=== PATIENT | male | born 1955 | race Caucasian/White ===

== ENCOUNTER 2020-11-03 09:00 | Outpatient (REF) | payer MEDICARE, MEDICAID, SELFPAY ==
[2020-11-03 10:17] LABS: Anion Gap 12 (12-20); Blood Urea Nitrogen 18 mg/dL (9-16); Calcium 9.6 mg/dL (8.4-10.2); Carbon Dioxide 26 mmol/L (22-29); Chloride 107 mmol/L (96-108); Estimated Glomerular Filt Rate 58; Glucose Random 102 mg/dL (60-115); Sodium 140 mmol/L (135-145)
== END 2020-11-03 09:01 | disposition home or self-care (01) ==
LOC: HO.LAB 09:00
PROVIDERS: Visit Provider Internal Medicine Hypertension Specialist
DX: I12.9 Hypertensive chronic kidney disease with stage 1 through stage 4 chronic kidney disease, or unspecified chronic kidney disease (principal); N18.9 Chronic kidney disease, unspecified
CPT/HCPCS: 36415; 80048

== ENCOUNTER 2020-11-22 07:52 | Outpatient (REF) | payer MEDICARE, MEDICAID, SELFPAY | END 2020-11-22 07:53 | disposition home or self-care (01) | LOC: HO.HOSX 07:52 | PROVIDERS: Visit Provider Orthopaedic Surgery | DX: Z13.89 Encounter for screening for other disorder (principal) ==

== ENCOUNTER 2021-05-01 09:34 | Outpatient (REF) | payer MEDICARE, MEDICAID, SELFPAY ==
[2021-05-01 10:58] LABS: Anion Gap 12 (12-20); Blood Urea Nitrogen 16 mg/dL (9-16); Calcium 10.1 mg/dL (8.4-10.2); Carbon Dioxide 25 mmol/L (22-29); Chloride 109 mmol/L (96-108); Estimated Glomerular Filt Rate > 60; Potassium 4.9 mmol/L (3.3-5.1); Sodium 141 mmol/L (135-145)
== END 2021-05-01 09:35 | disposition home or self-care (01) ==
LOC: HO.LAB 09:34
PROVIDERS: Visit Provider Internal Medicine Hypertension Specialist
DX: I12.9 Hypertensive chronic kidney disease with stage 1 through stage 4 chronic kidney disease, or unspecified chronic kidney disease (principal); N18.9 Chronic kidney disease, unspecified
CPT/HCPCS: 36415; 80051; 82310; 82565; 84520

== ENCOUNTER 2021-09-12 09:13 | Outpatient (REF) | payer MEDICARE, MEDICAID, SELFPAY ==
[2021-09-12 11:13] LABS: Anion Gap 14 (12-20); Blood Urea Nitrogen 13 mg/dL (9-16); Calcium 9.9 mg/dL (8.4-10.2); Carbon Dioxide 23 mmol/L (22-29); Chloride 108 mmol/L (96-108); Estimated Glomerular Filt Rate 50; Glucose Random 162 mg/dL (60-115); Potassium 4.7 mmol/L (3.3-5.1); Sodium 140 mmol/L (135-145)
[2021-09-12 12:12] LABS: Creatinine Urine 28.21 mg/dL; Total Protein Urine Random < 7 mg/dL (<12)
== END 2021-09-12 09:14 | disposition home or self-care (01) ==
LOC: HO.LAB 09:13
PROVIDERS: PCP Registered Nurse Community Health; Visit Provider Internal Medicine Hypertension Specialist
DX: I10 Essential (primary) hypertension (principal)
CPT/HCPCS: 36415; 80048; 84156

== ENCOUNTER → 2022-02-27 13:12 | Outpatient (BNVA) | payer MEDICARE, SELFPAY | PROVIDERS: PCP Registered Nurse Community Health; Referring Provider Registered Nurse Community Health; Visit Provider Surgery | DX: Z86.010 Personal history of colon polyps (principal) | CPT/HCPCS: 99202 ==

== ENCOUNTER 2022-03-25 10:02 | Outpatient (REF) | payer OTHER, SELFPAY ==
[2022-03-25 11:01] LABS: Anion Gap 15 (12-20); Blood Urea Nitrogen 12 mg/dL (9-16); Calcium 10.3 mg/dL (8.4-10.2); Carbon Dioxide 26 mmol/L (22-29); Chloride 108 mmol/L (96-108); Estimated Glomerular Filt Rate > 60; Glucose Random 130 mg/dL (60-115); Potassium 5.2 mmol/L (3.3-5.1); Sodium 144 mmol/L (135-145)
[2022-03-25 11:31] LABS: Appearance Urine Clear; Color Urine Yellow; Glucose Urine UA Negative (Negative); Leukocyte Esterase Urine Negative (Negative); Nitrite Urine Negative (Negative); Specific Gravity - Urine <= 1.005 (1.005-1.025); Urine Blood Negative (Negative); Urine Ketones Negative (Negative); Urine Protein Negative (Neg-Trace)
== END 2022-03-25 10:03 | disposition home or self-care (01) ==
LOC: HO.LAB 10:02
PROVIDERS: Visit Provider Internal Medicine Hypertension Specialist
DX: I12.9 Hypertensive chronic kidney disease with stage 1 through stage 4 chronic kidney disease, or unspecified chronic kidney disease (principal)
CPT/HCPCS: 36415; 80048; 81003

== ENCOUNTER 2022-04-05 06:50 | Day surgery (SDC) | payer OTHER, SELFPAY ==
--- NOTE | 2022-04-04 09:00 | HO.ANESPROP2 ---
Documented by User: Kasia Wen NP 04/17/22 14:33 HPI - Anesthesia Eval Consult details Narrative: 67yo M for Colonoscopy with possible polypectomy PMFSH Active Problems Active Problems: All Active Problems (Updated 02/27/22 @ 13:23 by Yasir Bowling MD) History of adenomatous polyp of colon (Acute) Hypertension (Acute) Past Medical History Medical History (Updated 04/05/22 @ 07:51 by Leilani Saldaña, RN) Asthma Colon abnormality High cholesterol History of adenomatous polyp of colon Hypertension Hypothyroid Kidney disease Surgical History Surgical History (Updated 04/05/22 @ 07:50 by Leilani Saldaña, JAYJAY) H/O: hemorrhoidectomy Status post total hip replacement, bilateral Social History Social History Patient Tobacco Use Status: Never used Tobacco Meds Allergies Allergy/AdvReac Type Severity Reaction Status Date / Time dicloxacillin Allergy Unknown Unknown Verified 04/18/22 09:54 ibuprofen [From MOTRIN] Allergy Unknown GI Verified 04/18/22 09:54 PROBLEM, GI upset penicillin V Allergy Unknown Unknown Verified 04/18/22 09:54 Penicillins [PENICILLINS] Allergy Unknown UNKNOWN Verified 04/18/22 09:54 Home Medications Medication Instructions Recorded Confirmed Last Taken Type cholecalciferol (vitamin D3) 50 50 mcg PO DAILY 02/27/22 Unknown History mcg (2,000 unit) capsule (Vitamin D3) levothyroxine 125 mcg tablet 125 mcg PO DAILY 02/27/22 Unknown History loratadine 10 mg tablet 10 mg PO DAILY PRN 02/27/22 Unknown History pantoprazole 40 mg tablet,delayed 40 mg PO DAILY 02/27/22 Unknown History release rosuvastatin 10 mg tablet 10 mg PO BEDTIME 02/27/22 Unknown History sildenafil 100 mg tablet (Viagra) 50 - 100 mg PO DAILY PRN 02/27/22 Unknown History tramadol 50 mg tablet 50 mg PO PRN pain 02/27/22 Unknown History Exam Exam Date and Time: April 04, 2022 0900 Pertinent Lab Results Pertinent Lab Results: Laboratory Tests 07/26/19 03/25/22 14:20 10:17 WBC 10.4 Hgb 14.6 Hct 43.9 Plt Count 202 Sodium 144 Potassium 5.2 H Chloride 108 Carbon Dioxide 26 BUN 12 Creatinine 1.18 Assessment and Plan Assessment Anesthesia Assessment: Chart Reviewed Documented by User: Binu Malloy MD 04/22/22 19:23 PMF Past Medical History Medical History (Updated 04/05/22 @ 07:51 by Leilani Saldaña RN) Asthma Colon abnormality High cholesterol History of adenomatous polyp of colon Hypertension Hypothyroid Kidney disease Family History Family history of problems with anesthesia: No Surgical History Surgical History (Updated 04/05/22 @ 07:50 by Leilani Saldaña RN) H/O: hemorrhoidectomy Status post total hip replacement, bilateral History of Problems with Anesthesia: No Social History Social History Patient Tobacco Use Status: Never used Tobacco Meds Allergies Allergy/AdvReac Type Severity Reaction Status Date / Time dicloxacillin Allergy Unknown Unknown Verified 04/18/22 09:54 ibuprofen [From MOTRIN] Allergy Unknown GI Verified 04/18/22 09:54 PROBLEM, GI upset penicillin V Allergy Unknown Unknown Verified 04/18/22 09:54 Penicillins [PENICILLINS] Allergy Unknown UNKNOWN Verified 04/18/22 09:54 Home Medications Medication Instructions Recorded Confirmed Last Taken Type cholecalciferol (vitamin D3) 50 50 mcg PO DAILY 02/27/22 Unknown History mcg (2,000 unit) capsule (Vitamin D3) levothyroxine 125 mcg tablet 125 mcg PO DAILY 02/27/22 Unknown History loratadine 10 mg tablet 10 mg PO DAILY PRN 02/27/22 Unknown History pantoprazole 40 mg tablet,delayed 40 mg PO DAILY 02/27/22 Unknown History release rosuvastatin 10 mg tablet 10 mg PO BEDTIME 02/27/22 Unknown History sildenafil 100 mg tablet (Viagra) 50 - 100 mg PO DAILY PRN 02/27/22 Unknown History tramadol 50 mg tablet 50 mg PO PRN pain 02/27/22 Unknown History Exam Airway Mallampati Class: II TM Dist: >3cm Heart: ok Lungs: ok Assessment and Plan Final Anesthetic Review Family History of Problems with Anesthesia: No History of Problems with Anesthesia: No NPO: Yes ASA Class: II Final Preanesthetic Review: No Changes in Pt Med Stat, Meds/Allgs Chart Reviewed, Consent Obtained/Reviewed and Anes Risks/Benef Reviewed Patient Risk: Intermediate Procedure Risk: Low Anesthetic Plan Anesthetic Plan: MAC: Disposition: Standard PACU
[2022-04-05 07:58] VITALS: BMI 31.0
[2022-04-05] MEDS: Lactated Ringers 1,000 ML 100 ML IVCONT (08:03)
--- NOTE | 2022-04-05 08:03 | P.HPSUR_ITS ---
Pre-Procedural Eval Section A Date of Service: 04/05/22 Section B Chief Complaint: Personal history of colonic polyps Details of Present Illness: history of a tubular adenoma at level 35 cm last 2019 Relevant Family History (Specify if Yes): No Relevant Social History: None Present Medications: see Short Stay Collaborative assessment Medical History: Significant History ( hypertension) Allergies: Allergies Allergy/AdvReac Type Severity Reaction Status Date / Time dicloxacillin Allergy Unknown Unknown Verified 02/27/22 13:23 ibuprofen [From MOTRIN] Allergy Unknown GI Verified 04/05/22 07:47 PROBLEM, GI upset penicillin V Allergy Unknown Unknown Verified 02/27/22 13:23 Penicillins [PENICILLINS] Allergy Unknown UNKNOWN Verified 04/05/22 07:47 Review of Systems Sugical H&P ROS: Negative: Constitution, Cardiovascular, Respiratory, Neur ological, Psychiatric, Hem-Onc, Allergic/Immunologic, Gastrointestinal, Genitourinary, Musculoskeletal, Integumentary, Endocrine and Eyes/Ears/Nose/Throat Exam Surgical H&P Exam: Normal: HEENT, Normal: Heart, Normal: Lungs, Normal: Extremities, Normal: Abdomen, Normal: Skin and Normal: Neurological Plan Diagnosis/Plan: Unchanged I have reviewed the history and physical and performed a pertinent physical examination on my patient. No changes have occurred unless specified.
[2022-04-05 08:11] VITALS: BP 167/83; PULSE 59; RESP 16; TEMP 36.1; O2SAT 98
--- NOTE | 2022-04-05 09:01 | W.PM.OPN ---
Operative Note Operative Note Date of Service: 04/05/22 Narrative: Preop diagnosis: History of tubular adenoma Postop diagnosis: 1. Polyp about 4 mm, hepatic flexure 2. polyp, about 4 mm, right colon 3. polyps x2 at level 50 cm, , 1 polyp about 4 mm in size and 2nd polyp about 1 cm in size Procedure: Colonoscopy with polypectomy times 4 using hot snare Surgeon: Yasir Bowling MD The patient is a 67-year-old male with a tubular adenoma in 2019. I had recommended follow-up colonoscopy in view of the large size of the adenoma. He understood the technique of the procedure. He was aware of the risks, benefits, and alternatives. The patient was brought to the operating room and placed in left lateral decubitus position under monitored anesthesia care. A surgical time-out was done. A full digital rectal exam was done and this did not reveal any significant anal lesions. The tip of the Olympus colonoscope was gently introduced through the anal orifice advanced with insufflation all the way to the cecum. The cecum was intubated. The cecum was identified by visualization of the ileocecal valve as well as the appendiceal orifice. The cecal mucosa was unremarkable. The scope was gradually withdrawn with careful examination of the entire colonic mucosa being done with scope withdrawal. The patient had significant amount of bowel stool particles the right colon. In the hepatic flexure, there was note of a small polyp about 4 mm. There was removed using hot snare. Was a 2nd polyp in the mid right colon also removed with hot snare. This was about 4 mm in size. There was a 4 mm polyp at level 50 cm removed not snare. Adjacent to this was a polyp about 1 in size on a small stalk and removed with hot snare. We continued to withdraw the scope and there were no other lesions seen. The rectum was reached and there were no lesions seen. The anal canal was unremarkable. The scope was then withdrawn completely with desufflation The patient tolerated procedure well. There were no immediate complications. In view of the multiple, I would recommend another colonoscopy in the next 3 years depending on the path report.
[2022-04-05 09:06] VITALS: BP 146/77; PULSE 65; RESP 17; TEMP 36.3; O2SAT 97
[2022-04-05 09:21] VITALS: BP 158/92; PULSE 71; RESP 18; O2SAT 99
[2022-04-05 09:36] VITALS: BP 157/81; PULSE 61; RESP 16; TEMP 36.2; O2SAT 99
== END 2022-04-05 09:54 | disposition home or self-care (01) ==
PROVIDERS: Visit Provider Surgery
PROC: 0DJD8ZZ Inspection of Lower Intestinal Tract, Via Natural or Artificial Opening Endoscopic (ICD-10-PCS; CPT 45378; principal; 2022-04-05 08:20)
DX: Z12.11 Encounter for screening for malignant neoplasm of colon (principal); Z86.010 Personal history of colon polyps; D12.2 Benign neoplasm of ascending colon; D12.3 Benign neoplasm of transverse colon; D12.5 Benign neoplasm of sigmoid colon; I10 Essential (primary) hypertension; Z88.0 Allergy status to penicillin; Z88.8 Allergy status to other drugs, medicaments and biological substances; Z79.899 Other long term (current) drug therapy
CPT/HCPCS: 45385; 88305; J3010

== ENCOUNTER → 2022-04-18 09:40 | Outpatient (BNVA) | payer OTHER, SELFPAY | PROVIDERS: Visit Provider Physician Assistant Surgical | DX: Z86.010 Personal history of colon polyps (principal) | CPT/HCPCS: 99212 ==

== ENCOUNTER 2022-06-12 14:10 | Outpatient (REF) | payer OTHER, SELFPAY ==
--- NOTE | ~2022-06-12 | XR_ITS ---
EXAMINATION: BILATERAL HIPS AND AP PELVIS. CLINICAL INFORMATION: Bilateral hip pain. COMPARISON: None TECHNIQUE: AP pelvis and right hip 2 views. Left hip 2 views. FINDINGS: AP pelvis: There is total bilateral hip joint replacement. SI joints are symmetrical and normal. No soft tissue abnormality seen. No fracture noted. Right hip: There is a total right hip arthroplasty with prosthetic components in satisfactory alignment. No periprosthetic fracture. No loosening. Left hip: There is a total left hip arthroplasty with prosthetic components in alignment. There is no periprosthetic loosening or fracture seen. XR/XR hip RT w PEL1V IMPRESSION: Bilateral total hip joint replacement with prosthetic components in satisfactory alignment. No periprosthetic fracture or loosening seen.
--- NOTE | ~2022-06-12 | XR_ITS ---
EXAMINATION: BILATERAL HIPS AND AP PELVIS. CLINICAL INFORMATION: Bilateral hip pain. COMPARISON: None TECHNIQUE: AP pelvis and right hip 2 views. Left hip 2 views. FINDINGS: AP pelvis: There is total bilateral hip joint replacement. SI joints are symmetrical and normal. No soft tissue abnormality seen. No fracture noted. Right hip: There is a total right hip arthroplasty with prosthetic components in satisfactory alignment. No periprosthetic fracture. No loosening. Left hip: There is a total left hip arthroplasty with prosthetic components in alignment. There is no periprosthetic loosening or fracture seen. XR/XR hip LT min 2V IMPRESSION: Bilateral total hip joint replacement with prosthetic components in satisfactory alignment. No periprosthetic fracture or loosening seen.
== END 2022-06-12 14:11 | disposition home or self-care (01) ==
LOC: HO.HOSX 14:10
PROVIDERS: Visit Provider Physician Assistant
DX: T84.84XA Pain due to internal orthopedic prosthetic devices, implants and grafts, initial encounter (principal); M76.899 Other specified enthesopathies of unspecified lower limb, excluding foot; Z96.643 Presence of artificial hip joint, bilateral
CPT/HCPCS: 73502; 99212

== ENCOUNTER 2022-07-02 14:00 | Outpatient (RCR) | payer OTHER, SELFPAY ==
--- NOTE | 2022-06-25 12:26 | MHC.PT.EP ---
[facility] Office [place] Office [place] Office [address] Meghana Madrid [address] [phone] F: [phone] F: [phone] F: [phone] F: [phone] Physical Therapy Plan of Care Date of Evaluation: Date of Surgery: Diagnosis: H/O SURINDER RUIZ, HIP FLEXOR TENDONITIS Assessment: 67 YO MALE REF TO PT FOR BILAT HIP FLEXOR TENDINITIS W H/O BILAT RUIZ IN 1995. HE RESIDES ALONE IN A FIRST FLOOR APARTMENT AND IS CURRENTLY AMB W/O ASST DEVICES. HE HAS A TUNE UP MECHANIC 3 x WK. OBJECTIVE FINDINGS: ROM DEFICITS BILAT HIPS AND TRUNK, TIGHT HIP FLEXORS/ CALF MM, (+) STRENGTH DEFICITS, AND MILD BILAT HIP FLEXOR AND LEFT GLUTE PAIN. FUNCTIONALLY, Pt IS CURRENTLY LIMITED WITH TRANSITIONAL MVMTS, PROLONGED STANDING, ALTERED GAIT MECHANICS, STAIR MGMT , AND RESTRICTED WITH MORE PHYSICALLY DEMANDING ADLs. HE IS MOTIVATED FOR PT TO ASSIST HIM IN BEING ABLE TO DEV A PROGR HEP, ADDRESS PAIN MGMT, AND RESUMING MAXIMAL LEVEL OF FUNCTIONAL INDEPENDENCE. Frequency and Duration: The patient will be seen 2 x WK x 5 WKS Short Term Goals: *Pt WILL DEMON EFFICIENT GAIT MECHANICS ON LEVEL GROUND AND STAIRS *Pt'S HIP PAIN WILL DECR TO 2-3/10 *Pt DEMON APPROP BED MOB/ POSITIONING/ SIT <-> STAND TRANSFERS W REDUCED UEs COMPENSATION Commercial Roofing Estimator Goals: *Pt WILL IMPROVE LUMBOPELVIC/ SURINDER LE STRENGTH TO AT LEAST 5-/5 *Pt INDEP W PROGR HEP AND SELF-SX MGMT TECHN *Pt RESUME FITNESS WALKING Treatment Plan: Modalities to reduce pain, spasms and effusion. Manual therapy to restore motion and function. Therapeutic exercise to improve strength and flexibility. Neuromuscular re-education for posture and balance. Therapeutic activities to return to functional activities of daily living. Electronically signed by: DEEPA MORELANDPT Please sign and return to therapist. Thank you for your referral.
--- NOTE | 2022-07-04 15:35 | MHC.PT.DC ---
[facility] [place] Office [place] Office [place] Office [address] Meghana Madrid [address] [phone] F: [phone] F: [phone] F: [phone] F: [phone] Physical Therapy Discharge Report Diagnosis: H/O SURINDER RUIZ, HIP FLEXOR TENDONITIS Date of Surgery: Date of Evaluation: 06/25/22 Date of Discharge: 07/04/22 Treatments to Date: 3 Cancellations to Date: 0 No Shows to Date: 0 Discharge Status: Improved Function Independent with HEP Patient Elected to Stop Discharge Summary: Pt HAS BENEFITTED FROM PT INTERVENTION TO DEV A PROGRESSIVE HEP, ADDRESS POSTURE / BODY MECHANICS, AND CORE MM ACTIV/ STABILIZATION. HE DID NOT MEET ALL OF HIS PT GOALS, BUT DUE TO HIS SCHEDULE AND PERSONAL CHOICE , Pt REQUESTED D/C AT THIS TIME. Electronically signed by: DEEPA MORELAND,PT Please sign and return to therapist. Thank you for your referral.
== END 2022-07-04 15:32 | disposition home or self-care (01) ==
LOC: HO.PT 14:00
PROVIDERS: Visit Provider Physician Assistant
DX: M76.891 Other specified enthesopathies of right lower limb, excluding foot (principal); M76.892 Other specified enthesopathies of left lower limb, excluding foot; Z96.643 Presence of artificial hip joint, bilateral
CPT/HCPCS: 97110; 97162

== ENCOUNTER 2022-08-12 12:12 | Outpatient (REF) | payer OTHER, SELFPAY | END 2022-08-12 12:13 | disposition home or self-care (01) | LOC: HO.HOSX 12:12 | PROVIDERS: Visit Provider Orthopaedic Surgery | DX: Z13.89 Encounter for screening for other disorder (principal) ==

== ENCOUNTER 2023-02-24 09:41 | Outpatient (REF) | payer OTHER, SELFPAY ==
--- NOTE | ~2023-02-24 | XR_ITS ---
EXAMINATION: XR FINGER, LEFT CLINICAL INFORMATION: Atraumatic pain since, swelling left index finger. Pain at PIP joint COMPARISON: None available. TECHNIQUE: PA view of the left hand and oblique and lateral views of the left index finger. FINDINGS: There is soft tissue swelling of the left index finger, particularly around the PIP joint. No fracture. Alignment is anatomic. Mild degenerative change of the DIP joint of the left index finger. There is also degenerative change of the triscaphe joint. Arterial vascular calcification is seen in the distal wrist. XR/XR finger LT min 2V IMPRESSION: 1. No acute bony abnormality. 2. Degenerative changes.
== END 2023-02-24 09:42 | disposition home or self-care (01) ==
LOC: HO.HHCX 09:41
PROVIDERS: Visit Provider Emergency Medicine
DX: M79.645 Pain in left finger(s) (principal)
CPT/HCPCS: 73140

== ENCOUNTER 2023-02-24 10:05 | Outpatient (REF) | payer OTHER, SELFPAY ==
[2023-02-24 11:39] LABS: MANUAL DIFF FLAG NO
[2023-02-24 12:09] LABS: Basophils Absolute Auto 0.1 X10*3/uL (0.0-0.2); Basophils Percent Auto 0.6 % (0-2); Eosinophils Absolute Auto 0.2 X10*3/uL (0.0-0.4); Eosinophils Percent Auto 1.2 % (0-4); Hematocrit 47.1 % (42.0-52.0); Hemoglobin 15.4 g/dl (14.0-18.0); Imm Gran Abs Auto 0.07 X10*3/uL (0.00-0.03); Imm Gran Pct Auto 0.5 % (0.0-0.4); Lymphocytes Absolute Auto 3.4 X10*3/uL (1.2-4.9); Lymphocytes Percent Auto 22.4 % (20-40); Mean Corpuscular HGB Conc 32.7 g/dl (31.0-36.0); Mean Corpuscular Hemoglobin 32.7 pg (27.0-33.0); Mean Platelet Volume 10.9 fL (9.4-12.4); Monocytes Absolute Auto 1.2 X10*3/uL (0.1-1.2); Monocytes Percent Auto 8.1 % (2-11); Neutrophils Absolute Auto 10.1 x10*3/uL (2.0-8.3); Neutrophils Percent Auto 67.2 % (45-73); Platelet Count 301 X10*3/uL (160-400); Red Blood Count 4.71 X10*6/uL (4.60-5.80); Red Cell Distribution Width 12.2 % (11.0-16.0); White Blood Count 15.1 X10*3/uL (4.8-10.8)
[2023-02-24 12:27] LABS: Uric Acid 6.7 mg/dL (3.4-7.0)
[2023-02-24 13:01] LABS: Erythrocyte Sedimentation Rate 14 MM/HR (0-15)
[2023-02-26 04:58] LABS: Lyme Abs Screen <0.90 index
== END 2023-02-24 10:06 | disposition home or self-care (01) ==
LOC: HO.HHCL 10:05
PROVIDERS: Visit Provider Emergency Medicine
DX: M79.644 Pain in right finger(s) (principal)
CPT/HCPCS: 36415; 84550; 85025; 85652; 86140; 86617; 86618

== ENCOUNTER 2023-05-01 09:21 | Outpatient (REF) | payer OTHER, SELFPAY ==
[2023-05-01 12:40] LABS: TSH reflex Free T4 0.62 uIU/mL (0.32-4.0)
== END 2023-05-01 09:22 | disposition home or self-care (01) ==
LOC: HO.HHCL 09:21
PROVIDERS: Visit Provider Registered Nurse
DX: E03.9 Hypothyroidism, unspecified (principal)
CPT/HCPCS: 36415; 84443

== ENCOUNTER 2023-06-17 11:58 | Outpatient (AMB) | payer OTHER, SELFPAY ==
--- NOTE | 2023-06-17 11:58 | HO.NEPHOV_ITS ---
HPI HPI Comments History of Present Illness Details 67 yr old man with HTN and CKD Here for follow up Continues to drink alcohol regularly No new issues PFSH Medical History Kidney disease High cholesterol Hypothyroid Colon abnormality Asthma History of adenomatous polyp of colon Hypertension Surgical History H/O: hemorrhoidectomy Status post total hip replacement, bilateral Social History Alcohol intake: never Patient Tobacco Use Status: Never used Tobacco Current occupational status: disabled Vital Signs 06/17/23 12:00 Height 5 ft 6.5 in Weight 190 lb BMI 30.2 BP 128/62 Blood Pressure Location Lt brachial Position Sitting Pulse 75 Pulse Source Pulse Oximeter Pulse Oximetry (%) 97 Oxygen Delivery Method Room Air Physical Exam Vital Signs: Last Vital Signs Pulse 75 06/17/23 12:00 BP 128/62 06/17/23 12:00 Pulse Ox 97 06/17/23 12:00 Oxygen Delivery Method Room Air 06/17/23 12:00 BMI result Body Mass Index 30.2 Const General: comfortable Nutritional Appearance: well nourished Orientation/consciousness: patient oriented x3 HEENT Head: No normal to inspection Mouth: moist mucous membranes Neck Neck: Yes supple and Yes no JVD Resp Auscultation: clear to auscultation bilaterally, no rales and rub present Cardio Jugular venous distension: no JVD Palpation: no palpable S3 and no palpable S4 Heart sounds: no rubs GI Palpation (GI): Soft to palpation and nontender Percussion: No Fluid wave present General: Yes no CVA tenderness Back/Spine/Pelvis Back: no CVA tenderness Skin General skin exam: no rashes or lesions noted Neuro General: patient oriented x3 Extrem General: Yes no pedal edema and No clubbing Assessment & Plan Assessment & Plan (1) Hypertension: Code(s): I10 - Essential (primary) hypertension Plan: BP well controlled Stay on low salt diet No change in meds h/o Mild hypercalcemia- ordered PTH and repeat Ca today (2) CKD (chronic kidney disease): Code(s): N18.9 - Chronic kidney disease, unspecified Plan: Mild CKD Avoid nephrotoxins and NSAIDS Keep BP < 130/80 Orders: Orders Creatinine Urine Today I10 - Essential (primary) hypertension, N18.9 - Chronic kidney disease, unspecified Electrolytes Today I10 - Essential (primary) hypertension, N18.9 - Chronic kid wade disease, unspecified Blood Urea Nitrogen Today I10 - Essential (primary) hypertension, N18.9 - Chronic kidney disease, unspecified Creatinine Today I10 - Essential (primary) hypertension, N18.9 - Chronic kidney disease, unspecified Calcium Today I10 - Essential (primary) hypertension, N18.9 - Chronic kidney disease, unspecified Total Protein Urine Random Today I10 - Essential (primary) hypertension, N18.9 - Chronic kidney disease, unspecified UA and rflx microscopic Today I10 - Essential (primary) hypertension, N18.9 - Chronic kidney disease, unspecified Parathyroid Hormone Intact Today I10 - Essential (primary) hypertension, N18.9 - Chronic kidney disease, unspecified Coding Level of Care Code Est Pt Level 4 (76766) Diagnoses Hypertension I10 CKD (chronic kidney disease) N18.9 Results Reviewed Nephrology Results: Hgb 15.4 g/dl (14.0-18.0) 02/24/23 WBC 15.1 X10*3/uL (4.8-10.8) H 02/24/23 Plt Count 301 X10*3/uL (160-400) 02/24/23 Sodium 144 mmol/L (135-145) 03/25/22 Potassium 5.2 mmol/L (3.3-5.1) H 03/25/22 Chloride 108 mmol/L (96-108) 03/25/22 Carbon Dioxide 26 mmol/L (22-29) 03/25/22 BUN 12 mg/dL (9-16) 03/25/22 Creatinine 1.18 mg/dL (0.5-1.4) 03/25/22 Calcium 10.3 mg/dL (8.4-10.2) H 03/25/22 Urine Protein Negative mg/dL (Neg-Trace) 03/25/22
[2023-06-17 12:00] VITALS: BP 128/62; PULSE 75; O2SAT 97; BMI 30.2
== END 2023-06-17 12:13 | disposition home or self-care (01) ==
PROVIDERS: PCP Registered Nurse; Visit Provider Internal Medicine Hypertension Specialist
DX: I12.9 Hypertensive chronic kidney disease with stage 1 through stage 4 chronic kidney disease, or unspecified chronic kidney disease (principal); N18.9 Chronic kidney disease, unspecified
CPT/HCPCS: 99214

== ENCOUNTER → 2023-06-17 11:58 | Outpatient (BNVA) | payer OTHER, SELFPAY | PROVIDERS: PCP Registered Nurse; Visit Provider Internal Medicine Hypertension Specialist | DX: I12.9 Hypertensive chronic kidney disease with stage 1 through stage 4 chronic kidney disease, or unspecified chronic kidney disease (principal); N18.9 Chronic kidney disease, unspecified | CPT/HCPCS: 99212 ==

== ENCOUNTER 2023-06-18 08:47 | Outpatient (REF) | payer OTHER, SELFPAY ==
[2023-06-18 09:51] LABS: Appearance Urine Clear; Color Urine Yellow; Glucose Urine UA Negative (Negative); Leukocyte Esterase Urine Negative (Negative); Nitrite Urine Negative (Negative); Urine Blood Negative (Negative); Urine Ketones Negative (Negative); Urine Protein Negative (Neg-Trace)
[2023-06-18 10:08] LABS: Parathyroid Hormone Intact 125.6 pg/mL (8.7-77.1)
[2023-06-18 10:09] LABS: Anion Gap 12 (12-20); Blood Urea Nitrogen 14 mg/dL (9-16); Calcium 9.4 mg/dL (8.4-10.2); Carbon Dioxide 25 mmol/L (22-29); Chloride 105 mmol/L (96-108); Estimated Glomerular Filt Rate 60; Potassium 4.2 mmol/L (3.3-5.1); Sodium 138 mmol/L (135-145)
[2023-06-18 10:21] LABS: Creatinine Urine 43.18 mg/dL; Total Protein Urine Random < 7 mg/dL (<12)
== END 2023-06-18 08:48 | disposition home or self-care (01) ==
LOC: HO.LAB 08:47
PROVIDERS: PCP Registered Nurse; Visit Provider Internal Medicine Hypertension Specialist
DX: I12.9 Hypertensive chronic kidney disease with stage 1 through stage 4 chronic kidney disease, or unspecified chronic kidney disease (principal); N18.9 Chronic kidney disease, unspecified
CPT/HCPCS: 36415; 80051; 81003; 82310; 82565; 82570; 83970; 84156; 84520

== ENCOUNTER 2023-08-06 11:26 | Outpatient (REF) | payer OTHER, SELFPAY | END 2023-08-06 11:27 | disposition home or self-care (01) | LOC: HO.HHCL 11:26 | PROVIDERS: Visit Provider Registered Nurse | DX: E03.9 Hypothyroidism, unspecified (principal) | CPT/HCPCS: 36415; 84439; 84443 ==

== ENCOUNTER 2023-09-17 12:03 | Outpatient (REF) | payer OTHER, SELFPAY ==
[2023-09-17 13:42] LABS: Estimated Average Glucose 108 mg/dL; Hemoglobin A1c % 5.4 % (<6.0)
[2023-09-17 14:09] LABS: TSH reflex Free T4 3.56 uIU/mL (0.32-4.0)
[2023-09-17 14:15] LABS: Alanine Aminotransferase 26 U/L (0-40); Albumin Level 4.1 g/dL (3.5-5.0); Aspartate Amino Transferase 19 U/L (5-37); Bilirubin Direct 0.3 mg/dL (0.0-0.5); Bilirubin Total 0.8 mg/dL (0.0-1.0); Cholesterol 164 mg/dL (<200); HDL Cholesterol 81 mg/dL (>40); LDL Cholesterol Calculated 55 mg/dL (<100); Total Protein 7.2 g/dL (6.5-8.0); Triglycerides 144 mg/dL (<150)
[2023-09-17 14:38] LABS: Alkaline Phosphatase 58 U/L (39-117)
== END 2023-09-17 12:04 | disposition home or self-care (01) ==
LOC: HO.HHCL 12:03
PROVIDERS: Visit Provider Registered Nurse
DX: I11.9 Hypertensive heart disease without heart failure (principal); E03.9 Hypothyroidism, unspecified; E78.1 Pure hyperglyceridemia
CPT/HCPCS: 36415; 80061; 80076; 83036; 84443

== ENCOUNTER → 2023-10-21 13:15 | Outpatient (BNVA) | payer OTHER, SELFPAY | PROVIDERS: PCP Registered Nurse; Visit Provider Internal Medicine Hypertension Specialist | DX: I12.9 Hypertensive chronic kidney disease with stage 1 through stage 4 chronic kidney disease, or unspecified chronic kidney disease (principal); N18.9 Chronic kidney disease, unspecified | CPT/HCPCS: 99212 ==

== ENCOUNTER 2024-03-18 11:04 | Outpatient (AMB) | payer OTHER, SELFPAY ==
[2024-03-18 11:10] VITALS: BMI 31.5
--- NOTE | 2024-03-18 11:10 | MHC.OFFVIS ---
Vital Signs 03/18/24 11:10 Height 5 ft 6.5 in Weight 198 lb BMI 31.5 Intake Visit Reasons: 1 year recall colonoscopy screening Intake Note: This patient presents for one year recall colonoscopy screening. Pt c/o; reports no complaints at this time. Wastewater Superintendent Required: Yes Wastewater Superintendent Language: Block Tester Services: Wastewater Superintendent Present (Lizett-SHANTAFranca) Wastewater Superintendent Name: Radha Information Interpreted: non-clinical & clinical Accompanied by: Self / Same As Patient Allergies dicloxacillin Allergy (Unknown, Verified 03/18/24 11:30) Unknown ibuprofen [From MOTRIN] Allergy (Unknown, Verified 03/18/24 11:30) GI PROBLEM, GI upset penicillin V Allergy (Unknown, Verified 03/18/24 11:30) Unknown Penicillins [PENICILLINS] Allergy (Unknown, Verified 03/18/24 11:30) UNKNOWN Medication List - Last Reconciled 03/18/24 by Yasir Bowling MD amlodipine 2.5 mg PO DAILY cholecalciferol (vitamin D3) (Vitamin D3) 50 mcg PO DAILY levothyroxine 125 mcg PO DAILY loratadine 10 mg PO DAILY PRN losartan 50 mg PO DAILY pantoprazole 40 mg PO DAILY rosuvastatin 10 mg PO BEDTIME sildenafil (Viagra) 50 - 100 mg PO DAILY PRN tramadol 50 mg PO PRN HPI HPI 1 year recall colonoscopy screening: Details: 69-year-old male here to schedule for a repeat colonoscopy. He had undergone a colonoscopy in 2021 and multiple tubular adenomas were removed. He was recommended to undergo a follow-up colonoscopy in 1 year. He denies any GI complaints. He says he feels well overall. He says he remains active and is in good health relatively. [facility] Medical History Kidney disease High cholesterol Hypothyroid Colon abnormality Asthma History of adenomatous polyp of colon Hypertension Surgical History H/O: hemorrhoidectomy Status post total hip replacement, bilateral Social History Alcohol intake: never Patient Tobacco Use Status: Never used Tobacco Current occupational status: disabled Review of Systems Const Denies chills and Denies fever(s) Card Denies chest pain, Denies dyspnea and Denies dyspnea on exertion Resp Denies cough, Denies dyspnea and Denies dyspnea on exertion GI Denies hematochezia and Denies change in bowel habits Denies hematuria and Denies difficulty urinating Musc Denies back pain and Denies limited range of motion Neuro Denies focal weakness and Denies convulsions Psych Denies depression and Denies mood swings Physical Exam Vital Signs: BMI result Body Mass Index 31.5 Const General: comfortable and no acute distress Orientation/consciousness: patient oriented x3 Neck Neck: Yes no lymphadenopathy Resp Auscultation: clear to auscultation bilaterally Cardio Rhythm: regular rhythm GI Palpation (GI): Soft to palpation, nontender and no guarding Neuro General: patient oriented x3 Assessment & Plan Assessment & Plan (1) History of adenomatous polyp of colon: Code(s): Z86.010 - Personal history of colon polyps Category: Medical Plan: He had multiple tubular adenomas on colonoscopy in 2021. I had recommended a short interval follow-up. I reviewed with him the technique of colonoscopy. I explained the risks including but not limited to bleeding and perforation as well as the benefits and alternatives. He understands and wants to proceed. Coding Level of Care Code Est Pt Level 3 (63856) Diagnoses History of adenomatous polyp of colon Z86.010
== END 2024-03-18 11:44 | disposition home or self-care (01) ==
PROVIDERS: PCP Registered Nurse; Visit Provider Surgery
DX: Z86.0100 Personal history of colon polyps, unspecified (principal)
CPT/HCPCS: 99213

== ENCOUNTER → 2024-03-18 11:04 | Outpatient (BNVA) | payer OTHER, SELFPAY | PROVIDERS: PCP Registered Nurse; Visit Provider Surgery | DX: Z01.818 Encounter for other preprocedural examination (principal); Z86.0100 Personal history of colon polyps, unspecified | CPT/HCPCS: 99212 ==

== ENCOUNTER 2024-03-29 09:02 | Outpatient (REF) | payer OTHER, SELFPAY ==
[2024-03-29 11:05] LABS: Basophils Absolute Auto 0.1 X10*3/uL (0.0-0.2); Eosinophils Absolute Auto 0.4 X10*3/uL (0.0-0.4); Eosinophils Percent Auto 3.1 % (0-4); Hemoglobin 15.4 g/dl (14.0-18.0); Imm Gran Abs Auto 0.02 X10*3/uL (0.00-0.03); Imm Gran Pct Auto 0.2 % (0.0-0.4); Lymphocytes Absolute Auto 5.2 X10*3/uL (1.2-4.9); Lymphocytes Percent Auto 45.6 % (20-40); MANUAL DIFF FLAG SCAN; Mean Corpuscular HGB Conc 32.8 g/dl (31.0-36.0); Mean Corpuscular Hemoglobin 33.8 pg (27.0-33.0); Mean Corpuscular Volume 103.3 fL (80.0-98.0); Mean Platelet Volume 11.5 fL (9.4-12.4); Monocytes Percent Auto 8.5 % (2-11); Neutrophils Absolute Auto 4.8 x10*3/uL (2.0-8.3); Neutrophils Percent Auto 41.6 % (45-73); Platelet Count 232 X10*3/uL (160-400); Red Blood Count 4.55 X10*6/uL (4.60-5.80); SCAN SMEAR FLAG 1; White Blood Count 11.5 X10*3/uL (4.8-10.8)
[2024-03-29 11:25] LABS: SLIDE REVIEW VERIFIED
[2024-03-29 11:58] LABS: Parathyroid Hormone Intact 89.6 pg/mL (8.7-77.1)
[2024-03-29 11:59] LABS: Alanine Aminotransferase 16 U/L (0-40); Albumin Level 4.1 g/dL (3.5-5.0); Alkaline Phosphatase 53 U/L (39-117); Anion Gap 8 (12-20); Aspartate Amino Transferase 18 U/L (5-37); Bilirubin Total 0.7 mg/dL (0.0-1.0); Blood Urea Nitrogen 18 mg/dL (9-16); Calcium 9.6 mg/dL (8.4-10.2); Carbon Dioxide 28 mmol/L (22-29); Chloride 111 mmol/L (96-108); Estimated Glomerular Filt Rate 59; Glucose Random 124 mg/dL (60-115); Potassium 4.5 mmol/L (3.3-5.1); Sodium 142 mmol/L (135-145); Total Protein 6.9 g/dL (6.5-8.0)
== END 2024-03-29 09:03 | disposition home or self-care (01) ==
LOC: HO.10HDL 09:02
PROVIDERS: Visit Provider Internal Medicine Hypertension Specialist
DX: N18.30 Chronic kidney disease, stage 3 unspecified (principal)
CPT/HCPCS: 36415; 80053; 83970; 85025

== ENCOUNTER 2024-03-30 11:11 | Outpatient (AMB) | payer OTHER, SELFPAY ==
[2024-03-30 11:13] VITALS: BP 130/74; PULSE 70; O2SAT 95; BMI 32.0
--- NOTE | 2024-03-30 11:13 | HO.NEPHOV ---
Vital Signs 03/30/24 11:13 Height 5 ft 6.5 in Weight 201 lb BMI 32.0 BP 130/74 Blood Pressure Location Rt brachial Position Sitting Pulse 70 Pulse Source Pulse Oximeter Pulse Oximetry (%) 95 Oxygen Delivery Method Room Air Intake Visit Reasons: CKD/CONF Recharger Required: Yes Recharger Name: Liang [id number] Accompanied by: Self / Same As Patient Allergies dicloxacillin Allergy (Unknown, Verified 03/30/24 11:15) Unknown ibuprofen [From MOTRIN] Allergy (Unknown, Verified 03/30/24 11:15) GI PROBLEM, GI upset penicillin V Allergy (Unknown, Verified 03/30/24 11:15) Unknown Penicillins [PENICILLINS] Allergy (Unknown, Verified 03/30/24 11:15) UNKNOWN Medication List - Last Reconciled 03/30/24 by Nacho Carmona MD amlodipine 2.5 mg PO DAILY cholecalciferol (vitamin D3) (Vitamin D3) 50 mcg PO DAILY levothyroxine 112 mcg PO levothyroxine 125 mcg PO DAILY loratadine 10 mg PO DAILY PRN losartan 50 mg PO DAILY pantoprazole 40 mg PO DAILY rosuvastatin 10 mg PO BEDTIME sildenafil (Viagra) 50 - 100 mg PO DAILY PRN tramadol 50 mg PO PRN HPI Comments Details: 68 yr old man with HTN and CKD says he does not drink alcohol c/o cough - 1 week now improving No fever 03/30/24 Feels better. No new issues PFSH Medical History Kidney disease High cholesterol Hypothyroid Colon abnormality Asthma History of adenomatous polyp of colon Hypertension Surgical History H/O: hemorrhoidectomy Status post total hip replacement, bilateral Social History Alcohol intake: never Patient Tobacco Use Status: Never used Tobacco Current occupational status: disabled Physical Exam Vital Signs: Last Vital Signs Pulse 70 03/30/24 11:13 BP 130/74 03/30/24 11:13 Pulse Ox 95 03/30/24 11:13 Oxygen Delivery Method Room Air 03/30/24 11:13 BMI result Body Mass Index 32.0 Const General: comfortable; No acute distress Orientation/consciousness: patient oriented x3 Eyes General: appearance normal, both eyes and all related structures Visual Schilling: normal visual schilling by confrontation Neck Neck: Yes supple and Yes no JVD Resp Effort & Inspection: normal respiratory effort and respiratory effort not decreased Auscultation: rhonchi Cardio Palpation: no palpable S3 and no palpable S4 Heart sounds: no rubs GI Inspection: Yes normal to inspection Palpation (GI): Soft to palpation Percussion: Yes normal to percussion Auscultation: normal bowel sounds General: Yes no CVA tenderness Back/Spine/Pelvis Back: no CVA tenderness Skin General skin exam: no petechiae and no purpura Neuro General: patient oriented x3 and no focal motor deficits Extrem General: No clubbing and No edema Results Reviewed Nephrology Results: Hgb 15.4 g/dl (14.0-18.0) 03/29/24 WBC 11.5 X10*3/uL (4.8-10.8) H 03/29/24 Plt Count 232 X10*3/uL (160-400) 03/29/24 Sodium 142 mmol/L (135-145) 03/29/24 Potassium 4.5 mmol/L (3.3-5.1) 03/29/24 Chloride 111 mmol/L (96-108) H 03/29/24 Carbon Dioxide 28 mmol/L (22-29) 03/29/24 BUN 18 mg/dL (9-16) H 03/29/24 Creatinine 1.22 mg/dL (0.5-1.4) 03/29/24 Calcium 9.6 mg/dL (8.4-10.2) 03/29/24 PTH Intact 89.6 pg/mL (8.7-77.1) H 03/29/24 Urine Protein Negative mg/dL (Neg-Trace) 06/18/23 Urine Creatinine 43.18 mg/dL 06/18/23 Assessment & Plan Assessment & Plan (1) Hypertension: Code(s): I10 - Essential (primary) hypertension Category: Medical Plan: BP well controlled Stay on low salt diet No change in meds h/o Mild hypercalcemia- stands corrected ordered PTH and repeat Ca before next visit (2) CKD (chronic kidney disease): Code(s): N18.9 - Chronic kidney disease, unspecified Category: Medical Plan: Mild CKD Avoid nephrotoxins and NSAIDS Keep BP < 130/80 Orders: Orders Complete Blood Count Auto Diff 6 Months N18.9 - Chronic kidney disease, unspecified Calcium Today N18.9 - Chronic kidney disease, unspecified Blood Urea Nitrogen Today N18.9 - Chronic kidney disease, unspecified Creatinine Today N18.9 - Chronic kidney disease, unspecified Electrolytes Today N18.9 - Chronic kidney disease, unspecified Coding Level of Care Code Est Pt Level 4 (23463) Diagnoses Hypertension I10 CKD (chronic kidney disease) N18.9
== END 2024-03-30 12:05 | disposition home or self-care (01) ==
LOC: HO.HKA 11:12
PROVIDERS: PCP Registered Nurse; Visit Provider Internal Medicine Hypertension Specialist
DX: I12.9 Hypertensive chronic kidney disease with stage 1 through stage 4 chronic kidney disease, or unspecified chronic kidney disease (principal); N18.2 Chronic kidney disease, stage 2 (mild)
CPT/HCPCS: 99214

== ENCOUNTER → 2024-03-30 11:11 | Outpatient (BNVA) | payer OTHER, SELFPAY | PROVIDERS: PCP Registered Nurse; Visit Provider Internal Medicine Hypertension Specialist | DX: I12.9 Hypertensive chronic kidney disease with stage 1 through stage 4 chronic kidney disease, or unspecified chronic kidney disease (principal); N18.30 Chronic kidney disease, stage 3 unspecified | CPT/HCPCS: 99212 ==

== ENCOUNTER 2024-04-16 10:32 | Day surgery (SDC) | payer OTHER, SELFPAY ==
[2024-04-13 15:44] VITALS: BMI 31.5
--- NOTE | 2024-04-14 13:21 | P.CONAN_ITS ---
Documented by User: Kasia Wen NP 04/14/24 13:22 HPI - Anesthesia Eval Consult details Narrative: 69yo M for Colonoscopy with Possible Polypectomy PMFSH Active Problems Active Problems: All Active Problems CKD (chronic kidney disease) (Acute) Hip flexor tendonitis (Acute) Hx of bilateral hip replacements (Acute) History of adenomatous polyp of colon (Acute) Hypertension (Acute) Past Medical History Medical History (Updated 04/13/24 @ 15:45 by Natalie Menezes RN) GERD (gastroesophageal reflux disease) Kidney disease High cholesterol Hypothyroid Colon abnormality Asthma History of adenomatous polyp of colon Hypertension Family History Family history of problems with anesthesia: No Surgical History Surgical History H/O colonoscopy H/O: hemorrhoidectomy Status post total hip replacement, bilateral History of Problems with Anesthesia: No Social History Social History Alcohol intake: never Patient Tobacco Use Status: Never used Tobacco Advance Directives: No Advance Directives Information Provided: Yes Current occupational status: disabled Meds Allergies Allergy/AdvReac Type Severity Reaction Status Date / Time ibuprofen [From MOTRIN] Allergy Intermediate GI Verified 04/16/24 10:48 PROBLEM, GI upset dicloxacillin Allergy Unknown Unknown Verified 04/16/24 10:48 Penicillins [PENICILLINS] Allergy Unknown UNKNOWN Verified 04/16/24 10:48 Home Medications ?Medication ?Instructions ?Recorded ?Confirmed ?Last Taken ?Type cholecalciferol (vitamin D3) 50 50 mcg PO DAILY 02/27/22 04/16/24 04/16/24 History mcg (2,000 unit) capsule (Vitamin D3) loratadine 10 mg tablet 10 mg PO DAILY PRN Allergy Symptoms 02/27/22 04/16/24 04/16/24 History pantoprazole 40 mg tablet,delayed 40 mg PO DAILY 02/27/22 04/16/24 Unknown History release rosuvastatin 10 mg tablet 10 mg PO BEDTIME 02/27/22 04/16/24 Unknown History sildenafil 100 mg tablet (Viagra) 50 - 100 mg PO DAILY PRN Erectile 02/27/22 04/16/24 Unknown History Dysfunction amlodipine 2.5 mg tablet 2.5 mg PO DAILY 03/18/24 04/16/24 04/16/24 History levothyroxine 112 mcg tablet 112 mcg PO Q2D 03/30/24 04/16/24 Unknown History levothyroxine 125 mcg tablet 125 mcg PO Q2D 03/30/24 04/16/24 04/16/24 History Exam Height,Weight and Vital Signs: Height 5 ft 6.5 in Weight 89.811 kg Assessment and Plan Assessment Anesthesia Assessment: Chart Reviewed Final Anesthetic Review Family History of Problems with Anesthesia: No History of Problems with Anesthesia: No Documented by User: Binu Malloy MD 04/16/24 11:07 [facility] Past Medical History Medical History (Updated 04/13/24 @ 15:45 by Natalie Menezes RN) GERD (gastroesophageal reflux disease) Kidney disease High cholesterol Hypothyroid Colon abnormality Asthma History of adenomatous polyp of colon Hypertension Surgical History Surgical History H/O colonoscopy H/O: hemorrhoidectomy Status post total hip replacement, bilateral Social History Social History Alcohol intake: never Patient Tobacco Use Status: Never used Tobacco Advance Directives: No Advance Directives Information Provided: Yes Current occupational status: disabled Meds Allergies Allergy/AdvReac Type Severity Reaction Status Date / Time ibuprofen [From MOTRIN] Allergy Intermediate GI Verified 04/16/24 10:48 PROBLEM, GI upset dicloxacillin Allergy Unknown Unknown Verified 04/16/24 10:48 Penicillins [PENICILLINS] Allergy Unknown UNKNOWN Verified 04/16/24 10:48 Home Medications ?Medication ?Instructions ?Recorded ?Confirmed ?Last Taken ?Type cholecalciferol (vitamin D3) 50 50 mcg PO DAILY 02/27/22 04/16/24 04/16/24 History mcg (2,000 unit) capsule (Vitamin D3) loratadine 10 mg tablet 10 mg PO DAILY PRN Allergy Symptoms 02/27/22 04/16/24 04/16/24 History pantoprazole 40 mg tablet,delayed 40 mg PO DAILY 02/27/22 04/16/24 Unknown History release rosuvastatin 10 mg tablet 10 mg PO BEDTIME 02/27/22 04/16/24 Unknown History sildenafil 100 mg tablet (Viagra) 50 - 100 mg PO DAILY PRN Erectile 02/27/22 04/16/24 Unknown History Dysfunction amlodipine 2.5 mg tablet 2.5 mg PO DAILY 03/18/24 04/16/24 04/16/24 History levothyroxine 112 mcg tablet 112 mcg PO Q2D 03/30/24 04/16/24 Unknown History levothyroxine 125 mcg tablet 125 mcg PO Q2D 03/30/24 04/16/24 04/16/24 History Exam Airway Mallampati Class: II TM Dist: >3cm Neck ROM: Full Loose/Missing/Broken Teeth: No Heart: ok Lungs: ok Assessment and Plan Assessment Anesthesia Assessment: Anesthesia Plan Discussed Final Anesthetic Review NPO: Yes ASA Class: III Final Preanesthetic Review: No Changes in Pt Med Stat, Meds/Allgs Chart Reviewed, Consent Obtained/Reviewed and Anes Risks/Benef Reviewed Patient Risk: Intermediate Procedure Risk: Low Anesthetic Plan Anesthetic Plan: MAC: and Agree w/ Assess. and Plan Disposition: Standard PACU
[2024-04-16 10:51] VITALS: BMI 28.1
[2024-04-16 10:58] VITALS: BP 155/79; PULSE 73; RESP 16; TEMP 37; O2SAT 96
--- NOTE | 2024-04-16 10:59 | MHC.SHP ---
Pre-Procedural Eval Section A - 24 Hr Update-Section A only Date of Service: 04/16/24 The patient is an INPATIENT: No Changes since office visit: No Cold of Flu in the past 2 weeks, No New Medical Problems, No Changes in Medication and No Patient answered all questions The patient has been examined within 24 hours of the surgical procedure. The History & Physical has been completed within 30 days and I have reviewed it.: Yes Section B - Complete if H&P > 30 days Chief Complaint: Personal history of colon polyps, Allergies: Allergies Allergy/AdvReac Type Severity Reaction Status Date / Time ibuprofen [From MOTRIN] Allergy Intermediate GI Verified 04/16/24 10:48 PROBLEM, GI upset dicloxacillin Allergy Unknown Unknown Verified 04/16/24 10:48 Penicillins [PENICILLINS] Allergy Unknown UNKNOWN Verified 04/16/24 10:48 Plan I have reviewed the history and physical and performed a pertinent physical examination on my patient. No changes have occurred unless specified. Time Spent With Patient Time: Total time managing care of this patient today ____ minutes.
[2024-04-16] MEDS: Lactated Ringers 1,000 ML 100 ML IVCONT (11:06)
--- NOTE | 2024-04-16 11:46 | W.PM.OPN ---
Operative Note Operative Note Date of Service: 04/16/24 Narrative: Preop diagnosis: History of adenomatous polyps of the colon Postop diagnosis: 1. polyp, about 5 mm, at level 70 cm, removed with hot snare 2. polyp about 5 mm, at level 90 cm, removed with hot snare 3. polyp about 3 mm in cecum adjacent to appendiceal orifice removed with cold forceps 4. small polyps x 3 about 2-3 mm each adjacent to each other, at level 60 cm 5. polyp at 3 mm at level 50 cm, removed with cold forceps 6. polyp about 5 mm at level 30 cm removed with cold snare 7. chronicallly sclerosed external hemorrhoid, about 1 cm Procedure: Colonoscopy with polypectomy using hot snare x2, polypectomy using cold snare x1, polypectomy using forceps times 5 Surgeon: Yasir Bowling MD The patient is a 69-year-old male, who had multiple polyps on colonoscopy last year. One of the polyps had high-grade dysplasia so I recommended repeating the colonoscopy with a 1 year. He understood the technique of the planned procedure as well as the risks, benefits, and alternatives. The patient was brought to the operating room and placed in left lateral decubitus position under monitored anesthesia care. A surgical time-out was done. A full digital rectal exam was done and this did not reveal any significant anal lesions. The tip of the Olympus colonoscope was gently introduced through the anal orifice advanced with insufflation all the way to the cecum. The cecum was intubated. The cecum was identified by visualization of the ileocecal valve as well as the appendiceal orifice. The cecal mucosa was unremarkable. The scope was gradually withdrawn with careful examination of the entire colonic mucosa being done with scope withdrawal. There was note of a 5 mm polyp at level 70 cm which was removed with hot snare. Another polyp was seen at level 90 cm, about 5 mm in size and was removed with a hot snare. There was note of a small polyp near the appendiceal orifice removed with multiple bites of the cold forceps. Three small polyps were seen at level 60 cm removed with multiple bites of the cold forceps. There was note of a small polyp about 3 mm in size at level 50 removed with cold forceps. Polyp about 5 mm in size at level 30 was removed using cold snare. There was note of a chronically sclerosed external hemorrhoid about 1 cm in the The patient had adequate bowel prep so it was unlikely that any lesion may have been missed. The rectum was reached and there were no lesions seen. The anal canal was unremarkable except for the external hemorrhoid. The scope was then withdrawn completely with desufflation The patient tolerated procedure well. There were no immediate complications. In view of the multiple polyps, depending on the path report, I may recommend repeating colonoscopy in 1 year.
[2024-04-16 11:51] VITALS: BP 97/56; PULSE 64; RESP 18; TEMP 36.3; O2SAT 96
[2024-04-16 12:06] VITALS: BP 130/72; PULSE 79; RESP 18; O2SAT 98
== END 2024-04-16 12:31 | disposition home or self-care (01) ==
PROVIDERS: PCP Registered Nurse; Visit Provider Surgery
PROC: 0DBE8ZZ Excision of Large Intestine, Via Natural or Artificial Opening Endoscopic (ICD-10-PCS; CPT 45385; principal; 2024-04-16 12:30)
DX: Z12.11 Encounter for screening for malignant neoplasm of colon (principal); Z86.0101 Personal history of adenomatous and serrated colon polyps; D12.0 Benign neoplasm of cecum; D12.3 Benign neoplasm of transverse colon; D12.4 Benign neoplasm of descending colon; D12.5 Benign neoplasm of sigmoid colon; K64.4 Residual hemorrhoidal skin tags; I10 Essential (primary) hypertension; N28.9 Disorder of kidney and ureter, unspecified; E78.00 Pure hypercholesterolemia, unspecified; E03.9 Hypothyroidism, unspecified; J45.909 Unspecified asthma, uncomplicated; Z79.899 Other long term (current) drug therapy; Z88.0 Allergy status to penicillin; Z88.1 Allergy status to other antibiotic agents; Z88.6 Allergy status to analgesic agent; Z96.643 Presence of artificial hip joint, bilateral
CPT/HCPCS: 45385; 45380; 88305; J2003; J2704

== ENCOUNTER → 2024-04-16 10:32 | Outpatient (BNV) | payer OTHER, SELFPAY | PROVIDERS: PCP Registered Nurse; Visit Provider Surgery | DX: Z12.11 Encounter for screening for malignant neoplasm of colon (principal); K63.5 Polyp of colon; Z86.0101 Personal history of adenomatous and serrated colon polyps | CPT/HCPCS: 45380; 45385 ==

== ENCOUNTER 2024-04-28 11:21 | Outpatient (AMB) | payer OTHER, SELFPAY ==
--- NOTE | 2024-04-28 11:29 | MHC.OFFVIS ---
Vital Signs 04/28/24 11:30 Height 5 ft 6.5 in Weight 176 lb 12.795 oz BMI 28.1 Intake Visit Reasons: S/P colonoscopy Intake Note: This patient presents for post-op assessment status post colonoscopy. Pt c/o; reports no complaints. 04/16/2024: Colonoscopy Engineered Wood Designer Required: Yes Engineered Wood Designer Language: Cloth Winder Machine Operator Services: Engineered Wood Designer Present Engineered Wood Designer Name: Radha Information Interpreted: non-clinical & clinical Accompanied by: Self / Same As Patient Allergies ibuprofen [From MOTRIN] Allergy (Intermediate, Verified 04/28/24 11:30) GI PROBLEM, GI upset dicloxacillin Allergy (Unknown, Verified 04/28/24 11:30) Unknown Penicillins [PENICILLINS] Allergy (Unknown, Verified 04/28/24 11:30) UNKNOWN HPI HPI S/P colonoscopy: Details: He underwent a screening syncope last 04/16/2024. He tolerated the procedure well. He here to discuss the findings. He denies any status post colonoscopy. [facility] Medical History (Updated 04/28/24 @ 11:34 by Yasir Bowling MD) Tubular adenoma of colon GERD (gastroesophageal reflux disease) Kidney disease High cholesterol Hypothyroid Colon abnormality Asthma History of adenomatous polyp of colon Hypertension Surgical History Hx of colonoscopy (~04/16/24) H/O colonoscopy H/O: hemorrhoidectomy Status post total hip replacement, bilateral Social History Are you a primary congregational care pastor to a significant other at home: No Do you presently have visiting nurse or other home services: No Alcohol intake: never Patient Tobacco Use Status: Never used Tobacco Current occupational status: disabled Review of Systems Const Denies chills and Denies fever(s) Card Denies chest pain at rest Resp Denies cough GI Denies abdominal pain and Denies hematochezia Physical Exam Vital Signs: BMI result Body Mass Index 28.1 Const General: comfortable and no acute distress Resp Effort & Inspection: normal respiratory effort GI Palpation (GI): Soft to palpation, not firm, nontender and no guarding Assessment & Plan Assessment & Plan (1) Tubular adenoma of colon: Code(s): D12.6 - Benign neoplasm of colon, unspecified Category: Medical Plan: Status post colonoscopy I removed about 8 polyps scattered throughout the entire colon. These were about 5 mm in largest dimension. These were all tubular adenomas and there was 1 sessile serrated polyp at level 70 cm. In view of the above findings, I am recommending another colonoscopy within 1 year. He understands the plan well. Coding Level of Care Code Est Pt Level 2 (18533) Diagnoses Tubular adenoma of colon D12.6
[2024-04-28 11:30] VITALS: BMI 28.1
== END 2024-04-28 11:41 | disposition home or self-care (01) ==
PROVIDERS: PCP Registered Nurse; Visit Provider Surgery
DX: D12.6 Benign neoplasm of colon, unspecified (principal)
CPT/HCPCS: 99212

== ENCOUNTER → 2024-04-28 11:21 | Outpatient (BNVA) | payer OTHER, SELFPAY | PROVIDERS: PCP Registered Nurse; Visit Provider Surgery | DX: D12.6 Benign neoplasm of colon, unspecified (principal) | CPT/HCPCS: 99212 ==

== ENCOUNTER 2024-07-09 08:58 | Outpatient (REF) ==
--- OUTSIDE RECORDS SUMMARY | 2024-07-09 09:18 | XMS_ITS | Clinical Summary ---
Author Organization [facility] Address [address] [place] [address] Phone Care Team Providers Care Armed Security Officer Name Role Phone Arlene Wong NP Primary Care Provider [phone] Allergies Active Allergy Reactions Criticality Noted Date Comments Nsaids Other (see comments) 10/31/2020 Penicillins Other (see comments) 10/31/2020 Medications albuterol HFA (PROVENTIL HFA;VENTOLIN HFA) 108 (90 Base) MCG/ACT inhaler 2 puffs by Other route 2 (two) times a day Active Cholecalciferol 50 MCG (1999 UT) capsule Comments: Patient Notes: TAKE 1 CAPSULE BY MOUTH ONCE A DAY Duration: 90 Active loratadine (CLARITIN) 10 MG tablet Take 1 tablet by mouth 1 (one) time each day Active losartan (COZAAR) 50 MG tablet Take 1 tablet by mouth 1 (one) time each day Active pantoprazole (PROTONIX) 40 MG EC tablet Take 1 tablet by mouth 1 (one) time each day Active rosuvastatin (CRESTOR) 10 MG tablet Take 1 tablet by mouth 1 (one) time each day Active Viagra 100 MG tablet TAKE 1/2 TO 1 TABLET BY MOUTH ONCE DAILY NEEDED 10/04/2020 Active traMADol (ULTRAM) 50 MG tablet TAKE 1 TABLET BY MOUTH ONE OR TWO TIMES DAILY NEEDED FOR PAIN 09/06/2020 Active levothyroxine (SYNTHROID, LEVOTHROID) 125 MCG tablet Take 125 mcg by mouth 1 (one) time each day 04/30/2021 Active Active Problems Problem Noted Date Diagnosed Date Hypertensive heart disease without heart failure 10/31/2020 Benign essential hypertension 10/31/2020 Acute nontraumatic kidney injury 10/31/2020 Chronic kidney disease stage 3 10/31/2020 Family History Medical History Relation Comments Diabetes Mother Hypertension Mother Stroke Mother Relation Status Comments Mother Social History Tobacco Use Types Packs/Day Years Used Date Smoking Tobacco: Never Smokeless Tobacco: Never Tobacco Cessation:Counseling Given: Not Answered Sex and Gender Information Value Date Recorded Sex Assigned at Not on file Legal Sex Male 5:08 PM EST Gender Identity Not on file Sexual Orientation Not on file Last Filed Vital Signs Vital Sign Reading Time Taken Comments Blood Pressure 120/66 04/04/2022 2:59 PM EDT Pulse 80 04/04/2022 2:59 PM EDT Temperature - - Respiratory Rate - - Oxygen Saturation 95% 04/04/2022 2:59 PM EDT Inhaled Oxygen Concentration - - Weight 90.2 kg (198 lb 12.8 oz) 04/04/2022 2:59 PM EDT Height 166.4 cm (5' 5.5 ) 06/30/2020 12 :00 PM EST Body Mass Index 32.58 06/30/2020 12:00 PM EST Plan of Treatment Health Maintenance Due Date Last Done Comments Pneumococcal Vaccine: 65+ Ye ars (1 of 2 - PCV) 1961 Colorectal Cancer Screening: Annual FOBT 2002 Colorectal Cancer Screening: Colonoscopy 2002 Colorectal Cancer Screening: Sigmoidoscopy 2002 Influenza Vaccine (#1) 2024 Hepatitis B Vaccine Aged Out No longe r eligible based on patient's age to complete this topic Insurance [facility] [id number] [facility] [id number] Care Teams Armed Security Officer Relationship Specialty Start Date End Date Arlene Wong NP PCP - General 06/12/20
== END 2024-07-09 08:59 | disposition home or self-care (01) ==
LOC: HO.HHCX 08:58
DX: M79.644 Pain in right finger(s) (principal)

== ENCOUNTER → 2024-07-09 09:00 | Outpatient (BNV) | payer OTHER, SELFPAY | PROVIDERS: Visit Provider Radiology Diagnostic Radiology | DX: M79.644 Pain in right finger(s) (principal) | CPT/HCPCS: 73140 ==

== ENCOUNTER 2024-10-04 09:53 | Outpatient (REF) | payer OTHER, SELFPAY ==
--- OUTSIDE RECORDS SUMMARY | 2024-10-04 11:00 | XMS_ITS | Clinical Summary ---
Author Organization [employer] Address [address] [facility] [address] [place] [address] Care Team Providers Care Director Of Analytical Development Name Role Phone Enid Diaz DAVON Primary Care Provider [phone] Allergies Active Allergy Reactions Criticality Noted Date Comments Ibuprofen 09/11/2015 Other reaction(s): upset stomach Penicillin G 05/21/2022 Medications clotrimazole (Lotrimin) 1 % creamIndications: Tinea pedis of both feet Apply topically between affected toes twice daily for 28 days 30 g 2 08/24/19 23 Active traMADol (Ultram) 50 MG tabletIndications :History of bilateral hip replacements Take 1 tablet (50 mg) by mouth if needed each day for severe pain. 10 tablet 1 04/09/20 23 Active pantoprazole (ProtoNix) 40 MG EC tablet TAKE 1 TABLET BY MOUTH EVERY DAY 90 tablet 1 04/17/20 23 Active levothyroxine (Synthroid) 125 MCG tablet Take 1 tablet (125 mcg) by mouth before breakfast. Take on Friday, Friday, and Friday 36 tablet 3 08/25/19 24 Active lidocaine (Lidoderm) 5 % patch Apply 1 patch topically Once per day. Remove & discard patch within 12 hours or as directed by MD. 30 patch 2 09/21/19 24 Active lidocaine-priloca ine (Emla) 2.5-2.5 % cream Apply topically if needed in the morning, at noon, and at bedtime for mild pain. 30 g 2 09/29/19 24 Active rosuvastatin (Crestor) 10 MG tablet Take 1 tablet (10 mg) by mouth at bedtime. (Cholesterol ) 90 tablet 3 10/13/19 24 Active sildenafil (Viagra) 100 MG tabletIndications :Erectile dysfunction, unspecified erectile dysfunction type TAKE 1/2 TO 1 TABLET BY MOUTH DAILY NEEDED 9 tablet 5 01/21/20 24 Active amLODIPine (Norvasc) 2.5 MG tabletIndications :Hypertension, unspecified type TAKE 1 TABLET BY MOUTH EVERY MORNING 90 tablet 3 04/27/20 24 Active loratadine (Claritin) 10 MG tablet TAKE 1 TABLET BY MOUTH EVERY DAY NEEDED 90 tablet 3 05/20/20 24 Active albuterol 108 (90 Base) MCG/ACT inhalerIndication s:Mild intermittent asthma without complication Inhale 2 puffs Every 4-6 hours as needed for wheezing or shortness of breath. 18 g 2 07/07/19 25 026 Active cholecalciferol (D3 Super Strength) 50 MCG (2000 UT) capsule TAKE 1 CAPSULE BY MOUTH EVERY DAY IN THE MORNING 90 capsule 1 09/07/19 25 Active levothyroxine (Synthroid, Levoxyl) 112 MCG tabletIndications :Acquired hypothyroidism TAKE 1 TABLET BY MOUTH FRIDAY, FRIDAY, FRIDAY, FRIDAY BEFORE BREAKFAST. 48 tablet 3 09/16/19 25 Active D3 Super Strength 50 MCG (2000 UT) capsule Take 1 capsule (50 mcg) by mouth in the morning. 90 capsule 3 08/06/19 24 025 Discontinued levothyroxine (Synthroid) 112 MCG tabletIndications :Acquired hypothyroidism Take 1 tablet (112 mcg) by mouth before breakfast. Take on Friday, Friday, , Friday 48 tablet 3 08/25/19 24 025 Discontinued Active Problems Problem Noted Date Diagnosed Date Tubular adenoma 07/08/2024 Overview (07/08/2024): History of tubular adenoma of colon Followed by [facility] general surgery-Dr. Bowling Colonoscopy April 2024. Removed 8 polyps scattered throughout the entire colon (5mm largest dimension), all tubular adenomas and 1 sessile serrated polyp Plan to repeat colonoscopy April 2025 Mild intermittent asthma without complication Overview (07/08/2024): Continues with albuterol as needed Assessment & Plan (07/08/2024 10:42 AM EST): Well-controlled, using approximately once per month. Generalized gingival recession, moderate 024 Missing teeth, acquired 01/13/2024 Dental plaque 01/13/2024 Dental root caries 01/13/2024 Vitamin D deficiency 12/17/2023 Assessment & Plan (07/08/2024 10:42 AM EST): Continue with Vit D 2000 units daily Repeat vitamin D level ordered Assessment & Plan (12/17/2023 10:47 AM EDT): Continue with Vit D 2000 units daily Memory changes 09/21/2023 Assessment & Plan (07/08/2024 10:45 AM EST): 09/10/23: Team nurse visit - MOCA scoring: mild cognitive impairment 09/17/23: Mini-Cog testing negative (WNL) PHQ9 screening: negative Memory changes not currently impairing daily function, pt continues to be independent with iADLs/ADLs. Consideration of further eval including brain imaging and Neurology referral. Shared decision making to defer at this time, likely age-related changes in memory. Plan to follow up if noting any worsening or changes in memory. Assessment & Plan (09/21/2023 8:49 PM EDT): 09/10/23: Team nurse visit - MOCA scoring: mild cognitive impairment 09/17/23: Mini-Cog testing negative (WNL) Labs: TSH closely followed with hx of hypothyroid. Plan to check Vit B12 next appt. PHQ9 screening: negative Memory changes not currently impairing daily function, pt continues to be independent with iADLs/ADLs. Consideration of further eval including brain imaging and Neurology referral. Shared decision making to defer at this time, likely age-related changes in memory. Plan to follow up if noting any worsening or changes in memory. Healthcare maintenance 04/09/2023 Overview (07/08/2024): Colonoscopy: 04/16/24 at [facility] (Dr. Bowling). Multiple tubular adenomas. Next due: Apr 2025. Acute idiopathic gout of left hand 03/03/2023 Assessment & Plan (03/03/2023 5:22 PM EDT): On 2nd digit. Labs showed significant inflammation, but other inflammatory etiologies are mostly ro'd. Counseled re low purine diet, he's quit alcohol for some time now. Tramadol prn pain. FU w PCP History of bilateral hip replacements 10/06/2022 Overview (12/04/2022): ?? Status post right total hip 10/09/1995 and total left hip 05/24/[address] Hurtado ?? XR 03/24/2019 show bilateral hip prosthesis in good position ?? Continues with intermittent pain in bilateral hips, previously tx with tramadol with noted improvement ?? Avoid NSAIDs due to hx CKD ?? APAP does not always provide significant relief Assessment & Plan (04/09/2023 5:15 PM EST): -May use tramadol sparingly (rx 10-15 tablets/month). Reviewed med safety and SE. -Consider referral to [employer] program if need for tramadol persists Assessment & Plan (12/04/2022 6:07 PM EDT): -Tramadol 50mg daily PRN sent to pharmacy - shared decision making to use as infrequently as possible, while still maintaining ability to function in ADLs. (plan for 15 tablets total/month). If benefits > risks and pt continues to request refill of med, will consider [employer] contract -Reviewed med safety and SE. Has Narcan prescription. -Consider referral to Pain Management/Ortho Assessment & Plan (10/06/2022 11:56 AM EDT): -Tramadol 50mg PRN sent to pharmacy - shared decision making to use as infrequently as possible, while still maintaining ability to function in ADLs. (plan for 15 tablets total/month). If benefits > risks and pt continues to request refill of med, will consider [employer] contract -Reviewed med safety and SE. Narcan sent to pharmacy. Hypertension 05/21/2022 Assessment & Plan (07/08/2024 10:41 AM EST): Elevated in office, well controlled per home readings Cont amlodipine 2.5mg daily Assessment & Plan (12/17/2023 10:48 AM EDT): Elevated in office, well controlled per home readings Cont amlodipine 2.5mg daily Assessment & Plan (08/06/2023 4:54 PM EST): Well controlled per home readings Cont amlodipine 2.5mg daily Assessment & Plan (04/09/2023 5:14 PM EST): ?? Well controlled per home readings ?? Cont amlodipine 2.5mg daily Assessment & Plan (03/03/2023 5:20 PM EDT): Uncontrolled, likely related to pain No change in meds, treat pain and fu w PCP Stage 3 chronic kidney disease 10/31/2020 Assessment & Plan (07/08/2024 10:44 AM EST): Continue following with nephrology- Dr. Griffith at [facility]. H/o mild hypercalcemia - following calcium and PTH Repeat BMP and microalbumin Assessment & Plan (12/17/2023 10:49 AM EDT): Continue following with nephrology- Dr. Griffith at [facility]. H/o mild hypercalcemia - following with repeat calcium and PTH on routine basis Assessment & Plan (09/21/2023 8:37 PM EDT): Continue following with nephrology- Dr. Griffith at [facility]. Per consult note Jul 2023: h/o mild hypercalcemia - following with repeat calcium and PTH Assessment & Plan (08/06/2023 4:47 PM EST): Continue following with nephrology- Dr. Griffith at [facility] Assessment & Plan (12/04/2022 6:04 PM EDT): Continue following with nephrology Hypertriglyceridemia 04/01/2018 04/09/2023 Assessment & Plan (07/08/2024 10:45 AM EST): Continues with rosuvastatin 10mg nightly Repeat fasting lipid panel Assessment & Plan (09/21/2023 8:53 PM EDT): Continues with rosuvastatin 10mg nightly Acquired hypothyroidism 04/17/2015 Assessment & Plan (07/08/2024 10:44 AM EST): Levo 125mcg M/W/F Levo 112mcg Sun/Tu/Th/Sat TSH goal: (4-6 uIU/mL) Lab Results Component Value Date TSH 3.56 09/17/2023 Assessment & Plan (12/17/2023 10:50 AM EDT): Levo 125mcg M/W/F Levo 112mcg Sun/Tu/Th/Sat TSH goal: (4-6 uIU/mL) Lab Results Component Value Date TSH 3.56 09/17/2023 Assessment & Plan (09/21/2023 8:36 PM EDT): Levo 125mcg M/W/F Levo 112mcg Sun/Tu/Th/Sat Reassess with labs in 6 weeks TSH goal: (4-6 uIU/mL) Assessment & Plan (08/06/2023 4:53 PM EST): -Continues on levothyroxine 112mcg daily -Repeat TSH ordered Resolved Problems Problem Noted Date Diagnosed Date Resolved Date Dental calculus 06/12/2023 08/06/2023 Periodontal disease 06/12/2023 08/06/19 24 Missing teeth, acquired 06/12/2023 03/0 11/2023 Generalized gingival recession, moderate 06/12/2023 08/06/2023 Hypertensive heart disease w ithout heart failure 10/31/2020 09/21/2023 Primary osteoarthritis invol ving multiple joints 04/17/2015 10/06/2022 Encounters Date Type Department Care Team Description 09/15/2024 Telephone [facility] [address] [place] [phone] Enid Diaz FNP 09/14/2024 Refill [facility] [address] [place] [address] Enid Diaz FNP Acquired hypothyroidism 09/05/2024 Refill [facility] [address] [place] [phone] Enid Diaz FNP 07/20/2024 Telephone [facility] [address] [place] [phone] Ilda Bajwa RN Results 07/15/2024 11:00 AM EST Office Visit [facility] [address] [place] [phone] Karlene Hancock Dental calculus (Primary Dx); Dental plaque 07/07/2024 11:15 AM EST Office Visit [facility] [address] [place] [address] [phone] Enid Diaz FNP Primary hypertension (Primary Dx); Stage 3a chronic kidney disease (CMS/HCC); Acquired hypothyroidism; Vitamin D deficiency; Hypertriglyceridemia; Healthcare maintenance; Pain of finger of right hand; Encounter for immunization; Tubular adenoma; Mild intermittent asthma without complication; Memory changes 07/07/2024 Travel from Last 3 Months Immunizations Name Administration Dates Next Due Influenza High-dose Quadriva lent Preservative Free 04/09/2023,04/23/2022,03/24/2020 Influenza injectable quadriv alent IIV4 with preservative 04/28/2018,04/15/2016,04/17/2015 Influenza injectable quadriv alent preservative free 03/09/2019 Influenza, High Dose Seasona l, Preservative Free 07/07/2024 Influenza, IIV3, injectable 05/05/2014,0 02/07/2011,2010,03/07,03/01/2008 Influenza, Split (incl. lj fied surface antigen) 03/30/2013,04/01/2012 Moderna Covid-19 Vaccine 6+ Bivalent 12/04/2022 Pfizer Covid-19 Vaccine 12+ 07/07/2024, Pneumococcal Conjugate PCV 13 09/24/2018 Pneumococcal Polysaccharide PPSV23 03/24/2020, TD (adult), 2 Lf tetanus tox oid, preservative free, adsorbed 01/06/2008,10/04/1996 Tdap 12/04/2022,09/24/2012 Zoster, Recombinant 10/24/2022,08/23/2022 Zoster, live 07/18/2016 Social History Tobacco Use Types Packs/Day Years Used Date Smoking Tobacco: Never Smokeless Tobacco: Never Tobacco Cessation:Counseling Given: Not Answered Comments:20 years ago. 04/09/2023 Alcohol Use Standard Drinks/Week Comments Never 0 (1 standard drink = 0.6 oz pur e alcohol) Alcohol Answer Date Recorded Frequency of Alcohol Consumption Not on file 09/17/2023 Average Number of Drinks Not on file 024 Frequency of Binge Drinking Not on file 08/31 Score 0 09/17/2023 Depression Answer Date Recorded Patient Health Questionnaire-9 Score 0 12/17/2023 Patient Health Questionnaire-9 Score 0 12/17/2023 Last PHQ-9: Questionnaire Data Not on file 0 12/17/2023 Housing Stability Answer Date Recorded What is your housing situation today? I have sudarshan devlin 09/17/[address] you li ve. Do you have problems with any of the following? I am not sure 09/17/2023 Food Insecurity Answer Date Recorded Within the past 12 months, y ou worried that your food would run out before you got money to buy more: Never True 09/17/2023 Within the past 12 months,th e food you bought just didn't last and you didn't have enough money to get more: Never True Transportation Answer Date Recorded In the past 12 months, has l ack of transportation kept you from medical appts, meetings, work or from getting things needed for daily living? No 09/17/2023 Utilities Answer Date Recorded In the past 12 months, has t he electric, gas, oil or water company threatened to shut off services in your home? No 09/17/2023 Depression Answer Date Recorded Patient Health Questionnaire-2 Score 0 12/17/2023 Sex and Gender Information Value Date Recorded Sex Assigned at Male 04/01/2022 10:14 AM EDT Legal Sex Male 10:14 AM EDT Gender Identity Male 04/01/2022 10:14 AM EDT Sexual Orientation Straight 04/01/2022 10 :14 AM EDT Last Filed Vital Signs Vital Sign Reading Time Taken Comments Blood Pressure 140/84 07/15/2024 10:50 AM EST Pulse 58 07/07/2024 11:17 AM EST Temperature 36.3 ??C (97.3 ??F) 07/07/2024 11:[address] Respiratory Rate 22 07/07/2024 11:17 AM EST Oxygen Saturation 98% 12/17/2023 9:38 AM EDT Inhaled Oxygen Concentration - - Weight 90.3 kg (199 lb) 07/07/2024 11:17 AM EST Height 167.6 cm (5' 6 ) 07/07/2024 11:17 AM EST Body Mass Index 32.12 07/07/2024 11:17 AM EST Plan of Treatment Upcoming Encounters Date Type Department Care Team (Late st Contact Info) Description 12/23/2024 1:00 PM EDT Office Visit [facility] [address] [place] [address] Karlene Hancock Health Maintenance Due Date Last Done Comments CT Colonography 1955 FIT DNA/Cologuard 1955 FIT 1955 FOBT 1955 Sigmoidoscopy 1955 Alcohol/Substance Use Screening 1965 RSV Patients and Patients Aged 60 years or older (1 - Risk 60-74 years 1-dose series) 2013 SDOH Screening 09/16/2024 09/17/2023 Depression Screening 12/16/2024 12/17/2023, 12/17/19 Dental Oral Exam 01/13/2025 07/15/2024, , 06/12/2023, Additional history exists Dental Prophylaxis 01/13/2025 07/15/2024, 0 01/13/2024, 06/12/2023, Additional history exists Dental X-Ray: Bitewings 01/13/2025 01/13/20 24, 06/12/2023, 12/10/2018, Additional history exists Colonoscopy 04/16/2025 04/16/2024 Colorectal Cancer Screening 04/16/2025 Tobacco Screening 07/15/2025 07/15/2024 Dental X-Ray: Full Mouth 06/13/2026 024, 03/23/2013, 04/22/2012 Lipid Panel 09/16/2028 09/17/2023, 04/03, 02/16/2021, Additional history exists DTaP/Tdap/Td Vaccines (3 - Td or Tdap) 12/04/2032 12/04/2022, 09/24/2012, 01/06/2008, Additional history exists Pneumococcal Vaccine: 50+ Years Completed 03/24/2020, 09/24/2018, 03/07/2009 Hepatitis C Screening Completed 10/01/2022, 022 Zoster Vaccines Completed 10/24/2022, 08/01, 07/18/2016 COVID-19 Vaccine Completed 07/07/2024, 11/2023, 12/04/2022, Additional history exists Influenza Vaccine Completed 07/07/2024, , 04/23/2022, Additional history exists HIB Vaccines Aged Out No longer eligi ble based on patient's age to complete this topic HPV Vaccines Aged Out No longer eligi ble based on patient's age to complete this topic Hepatitis A Vaccines Aged Out No long er eligible based on patient's age to complete this topic Hepatitis B Vaccines Aged Out No long er eligible based on patient's age to complete this topic IPV Vaccines Aged Out No longer eligi ble based on patient's age to complete this topic Meningococcal Vaccine Aged Out No riri sandy eligible based on patient's age to complete this topic RSV under 20 months Aged Out No longe r eligible based on patient's age to complete this topic Rotavirus Vaccines Aged Out No longer eligible based on patient's age to complete this topic Procedures Procedure Name Priority Date/Time Associated Diagnosis Comments PERIODIC ORAL EVALUATION - ESTABLISHED PATIENT Routine 07/15/2024 11:00 AM EST CASE PRESENTATION, DETAILED AND EXTENSIVE TREATMENT PLANNING Routine 07/15/2024 11:00 AM EST ORAL HYGIENE INSTRUCTIONS Routine 07/15/2024 11:00 AM EST Dental calculus Dental plaque PROPHYLAXIS - ADULT Routine 07/15/2024 1 1:00 AM EST Dental calculus Dental plaque XR FINGERS 2+ VIEWS RIGHT Routine 07/09/2024 9:00 AM EST Pain of finger of right hand HM COLONOSCOPY Routine 04/16/2024 4:45 PM EST BITEWINGS - 4 RADIOGRAPHIC IMAGES Routine 01/13/2024 10:00 AM EDT Generalized gingival recession, moderate Missing teeth, acquired Dental plaque Dental root caries LIPID PANEL, STANDARD Routine 09/17/2023 12:07 PM EDT Hypertriglyceridemi a INTRAORAL - COMPLETE SERIES OF RADIOGRAPHIC IMAGES Routine 06/12/2023 3:00 PM EST Dental calculus Periodontal disease Missing teeth, acquired Generalized gingival recession, moderate HEPATITIS C AB W/REFL TO HCV RNA, QN, PCR Routine 10/01/2022 10:10 AM EDT from Last 3 Months or Most Recently Relevant to Health Maintenance Results * XR Fingers 2+ Views Right (07/09/2024 9:00 AM EST) Anatomical Region Laterality Modality Upper Extremities, Fingers Right Radio graphic Imaging 07/09/2024 9:00 AM EST Narrative 07/09/2024 9:34 AM EST ?[facility] ?[address] ?[place] [address] ?XRay Report ? Signed ? Patient: Jose Angel Haas ?MR#: [id number] ?? 80 ? : 1955 ?Acct:[id number] ? Age/Sex: 69 / M ?ADM Date: 07/09/24 ? Loc: HO.HHCX ? Attending Dr: Enid Diaz CONVENIENCE STORE MANAGER ? Ordering Physician: Enid Diaz CONVENIENCE STORE MANAGER ?? Date of Service: 07/09/24 ?? Procedure(s): XR finger RT min 2V ?? Accession Number(s): [id number] ? cc: Enid Diaz CONVENIENCE STORE MANAGER ? EXAMINATION: ?? XR FINGER, RIGHT ? CLINICAL INFORMATION: ?? PAIN ? COMPARISON: ?? None available. ? TECHNIQUE: ?? PA, oblique and lateral views second digit of the right hand. ? FINDINGS: ?? No acute cortical disruption or malalignment. No lytic or blastic ?? lesions. There is a well-corticated the volume loss deformity at the ?? volar aspect base of the distal phalanx, second digit. There is no ?? associated calcification or soft tissue opacity nor subcutaneous ?? emphysema. ?? Degenerative changes in the first and second carpometacarpal joints and ?? radiocarpal joint. ?? Vascular calcifications in the wrist. ? XR/XR finger RT min 2V ?? IMPRESSION: ?? No acute fracture or dislocation. ?? Focal volume loss abnormality at the volar aspect base to the distal ?? phalanx, second digit. ? Electronically signed by: ??Leonel Mackay MD ??07/09/2024 09:31 AM ?? EST RP ? Dictated By: ?Leonel Cameron MD ? Signed By: ?<Electronically signed by Leonel Cr MD in OV> ? 07/09/24 0931 ? DD/ 0900 ? TD/TT: 07/09/24 0907 ? Exhibits Manager: ? Procedure Note Kiera Powell - 07/09/[address] [address] XRay Report Signed Patient: Jose Angel HaasMR#: [id number] 80 : 1955cct:[id number] Age/Sex: 69 / MADM Date: 07/09/24 Loc: HO.HHCX Attending Dr: Enid MAYS Ordering Physician: Enid Diaz Date of Service: 07/09/24 Procedure(s): XR finger RT min 2V Accession Number(s): [id number] cc: Enid Diaz EXAMINATION: XR FINGER, RIGHT CLINICAL INFORMATION: PAIN COMPARISON: None available. TECHNIQUE: PA, oblique and lateral views second digit of the right hand. FINDINGS: No acute cortical disruption or malalignment. No lytic or blastic lesions. There is a well-corticated the volume loss deformity at the volar aspect base of the distal phalanx, second digit. There is no associated calcification or soft tissue opacity nor subcutaneous emphysema. Degenerative changes in the first and second carpometacarpal joints and radiocarpal joint. Vascular calcifications in the wrist. XR/XR finger RT min 2V IMPRESSION: No acute fracture or dislocation. Focal volume loss abnormality at the volar aspect base to the distal phalanx, second digit. Electronically signed by: Leonel Mackay MD 07/09/2024 09:31 AM EST RP Dictated By: Leonel Cameron MD Signed By: <Electronically signed by Leonel Cr MDin OV> 07/09/24930 DD/ 9 TD/TT: 07/09/24906 Exhibits Manager: Enid MAYS IMG XR PROCEDURES Final Result * Hm Colonoscopy (04/16/2024 4:45 PM EST) Historical Provider HEALTH MAINTENANCE Final Result * Lipid Panel, Standard (09/17/2023 12:07 PM EDT) Triglycerides 144 <150 mg/dL [facility] Comment:Desirable Triglyceri de: less than 150 mg/dLBorderline High Triglyceride 150-199 mg/dLHigh Triglyceride: 200-499 mg/dLVery High Triglyceride: greater than or equal to 5OO mg/dL Cholesterol 164 <200 mg/dL [facility] Comment:Desirable Cholestero l: less than 200 mg/dLBorderline High Cholesterol: 200-239 mg/dLHigh Cholesterol: greater than 239 mg/dL LDL Cholesterol Calculated 55 <100 mg/dL [facility] Comment:Desirable LDL: less than 100 mg/dLNear Optimal/Above Optimal LDL: 110- 129 mg/dLBorderline High LDL: 130-159 mg/dLHigh LDL: 160-189 mg/dLVery High LDL: greater than or equal to 190 mg/dL HDL Cholesterol 81 >40 mg/dL [facility] Comment:Desirable HDL: great er than 40 mg/dL Note: This HDL assay may give artificially low results in patients with liver disease. Blood Venous blood specimen / Unknown 09/17/2023 12:07 PM EDT 09/17/2023 1:11 PM EDT Enid Phalen CONVENIENCE STORE MANAGER LAB BLOOD ORDERABLES Final Res ult [facility] [address] [place] [address] [phone] * Hepatitis C Antibody with Reflex to HCV, RNA, Quantitative, Real-Time PCR (10/01/2022 10:10 AM EDT) Hepatitis C Antibody NON-REACT SCOOTER NON-REACT SCOOTER [facility] Index 0.08 <1.00 [facility] Comment: HCV antibody was non-reactive. There is no laboratory evidence of HCV infection. In most cases, no further action is required. However, if recent HCV exposure is suspected, a test for HCV RNA (test code 48632) is suggested. For additional information please refer to http://education.[employer]/faq/LQD38k9 (This link is being provided for informational/ educational purposes only.) 10/01/2022 10:1 0 AM EDT 10/01/2022 10:11 AM EDT Eve Tejeda SHARPLES MACHINE OPERATOR LAB BLOOD ORDERABLES Final Res ult Performing Organization Address City/[facility] Co de Phone Number [facility] [address], [place] [address] [employer] [facility] [place] [employer] [address] [place] [phone] from Last 3 Months or Most Recently Relevant to Health Maintenance Insurance [facility] [employer] OPTIONS (HMO D-SNP) DENTAL - [facility] Care Teams Director Of Analytical Development Relationship Specialty Start Date End Date Enid Diaz FNP [address] [place] [phone] PCP - General Family Medicine 01/18/22
--- OUTSIDE RECORDS SUMMARY | 2024-10-04 11:00 | XMS_ITS | Encounter Summary ---
Author Organization [email or web address] Address [address] [facility] 7t [place] [address] Care Team Providers Care Shank Faker Name Role Phone Enid Diaz Primary Care Provider Reason for Visit * Reason Comments Med Refill Encounter Details Date Type Department Care Team ([facility] st Contact Info) Description 12/03/2023 Refill [facility] [address] [place] [address] Enid Diaz FNP [address] [place] [address] Erectile dysfunction, unspecified erectile dysfunction type Social History Tobacco Use Types Packs/Day Years Used Date Smoking Tobacco: Never Smokeless Tobacco: Never Comments:20 years ago. 2022 Alcohol Use Standard Drinks/Week Comments Never 0 (1 standard drink = 0.6 oz pur e alcohol) Alcohol Answer Date Recorded Frequency of Alcohol Consumption Not on file 09/17/2023 Average Number of Drinks Not on file 024 Frequency of Binge Drinking Not on file 08/31 Score 0 09/17/2023 Depression Answer Date Recorded Patient Health Questionnaire-9 Score 2 09/17/2023 Patient Health Questionnaire-9 Score 2 09/17/2023 Last PHQ-9: Questionnaire Data Not on file 0 09/17/2023 Housing Stability Answer Date Recorded What is [...] Date Recorded Patient Health Questionnaire-2 Score 0 09/17/2023 Sex and Gender Information Value Date Recorded Sex Assigned at Male 04/01/2022 10:14 AM EDT Legal Sex Male 10:14 AM EDT Gender Identity Male 04/01/2022 10:14 AM EDT Sexual Orientation Straight 04/01/2022 10 :14 AM EDT documented as of this encounter Plan of Treatment Upcoming Encounters Date Type Department Care Team (Late st Contact Info) Description 12/23/2024 1:00 PM EDT Office Visit [facility] [address] [place] [address] Karlene Hancock documented as of this encounter Visit Diagnoses Diagnosis Erectile dysfunction, unspecified erectile dysfunction type documented in this encounter Additional Health Concerns Assessment Noted Time PHQ-9 Depression Total Score: 2 09/17/19 24 10:52 AM EDT documented as of this encounter Care Teams Shank Faker Relationship Specialty Start Date End Date Enid Diaz FNP [address] [place] [address] PCP - General Family Medicine 01/18/22 documented as of this encounter
--- OUTSIDE RECORDS SUMMARY | 2024-10-04 11:00 | XMS_ITS | Encounter Summary ---
Author Organization [employer] Address [address] [facility] 7t [place] [address] Care Team Providers Care Maternity Floor Supervisor Name Role Phone Enid Diaz Primary Care Provider [phone] Reason for Visit * Reason Comments Med Refill Encounter Details Date Type Department Care Team ([facility] st Contact Info) Description 04/29/2023 Refill [facility] [address] [place] [address] Enid Diaz FNP [address] [place], [place] [phone] Hypothyroidism, unspecified type Social History Tobacco Use Types Packs/Day Years Used Date Smoking Tobacco: Never Smokeless Tobacco: Never Comments:20 years ago. 2022 Alcohol Use Standard Drinks/Week Comments Never 0 (1 standard drink = 0.6 oz pur e alcohol) Depression Answer Date Recorded Patient Health Questionnaire-9 Score 0 05/21/2022 Housing Stability Answer Date Recorded What is your housing situation today? I have sudarshan devlin 03/22/[address] you li ve. Do you have problems with any of the following? None of the above 03/22/2023 Food Insecurity Answer Date Recorded Within the past 12 months, y ou worried that your food would run out before you got money to buy more: Never True 03/22/2023 Within the past 12 months,th e food you bought just didn't last and you didn't have enough money to get more: Never True Transportation Answer Date Recorded In the past 12 months, has l ack of transportation kept you from medical appts, meetings, work or from getting things needed for daily living? No 03/22/2023 Utilities Answer Date Recorded In the past 12 months, has t he electric, gas, oil or water company threatened to shut off services in your home? No 03/22/2023 Depression Answer Date Recorded Patient Health Questionnaire-2 Score 0 05/21/2022 Sex and Gender Information Value Date Recorded Sex Assigned at Male 04/01/2022 10:14 AM EDT Legal Sex Male 10:14 AM EDT Gender Identity Male 04/01/2022 10:14 AM EDT Sexual Orientation Straight 04/01/2022 10 :14 AM EDT documented as of this encounter Miscellaneous Notes * Telephone Encounter - DAVON Bardales - 04/29/2023 8:50 PM EST Please call to let him know that I sent refill of levothyroxine to the pharmacy, but he is due to recheck his thyroid levels through blood work. I placed order. Please ask him to come to the health center to complete blood work at his convenience, thank you! documented in this encounter Plan of Treatment Upcoming Encounters Date Type Department Care Team (Late st Contact Info) Description 12/23/2024 1:00 PM EDT Office Visit [facility] [address] [place] [address] Karlene Hancock documented as of this encounter Procedures Procedure Name Priority Date/Time Associated Diagnosis Comments TSH W/REFLEX TO FT4 Routine 05/01/2023 9 :25 AM EST Hypothyroidism, unspecified type documented in this encounter Results * TSH W/Reflex to FT4 (05/01/2023 9:25 AM EST) TSH reflex Free T4 0.62 0.32 - 4.0 uIU/mL [facility] Blood 05/01/2023 9:25 AM EST 05/01/2023 11:13 AM EST us Enid MAYS LAB BLOOD ORDERABLES Final Res ult [facility] [address] [place] [address] [phone] documented in this encounter Visit Diagnoses Diagnosis Hypothyroidism, unspecified type documented in this encounter Additional Health Concerns Assessment Noted Time PHQ-9 Depression Total Score: 0 05/21/20 22 3:26 PM EST documented as of this encounter Care Teams Maternity Floor Supervisor Relationship Specialty Start Date End Date Enid Diaz FNP [address] [place] [address] PCP - General Family Medicine 01/18/22 documented as of this encounter
--- OUTSIDE RECORDS SUMMARY | 2024-10-04 11:00 | XMS_ITS | Encounter Summary ---
Author Organization [employer] [facility] Address [address] [place] [address] 7t [place] [address] Care Team Providers Care Swine Extension Field Specialist Name Role Phone Enid Diaz Primary Care Provider [phone] Encounter Details Date Type Department Care Team (Latest Contact Info) Description 12/10/2018 Abstract [facility] CONVERSIONS Dental, Provider, DDS Social History Tobacco Use Types Packs/Day Years Used Date Smoking Tobacco: Never Assessed Sex and Gender Information Value Date Recorded Sex Assigned at Male 04/01/2022 10:14 AM EDT Legal Sex Male 10:14 AM EDT Gender Identity Male 04/01/2022 10:14 AM EDT Sexual Orientation Straight 04/01/2022 10 :14 AM EDT documented as of this encounter Plan of Treatment Upcoming Encounters Date Type Department Care Team (Late st Contact Info) Description 12/23/2024 1:00 PM EDT Office Visit [facility] ADULT D[facility] [address] [place] [address] Karlene Hancock documented as of this encounter Visit Diagnoses Not on filedocumented in this encounter Care Teams Swine Extension Field Specialist Relationship Specialty Start Date End Date Enid Diaz FNP [address] [place] [address] PCP - General Family Medicine 01/18/22 documented as of this encounter
--- OUTSIDE RECORDS SUMMARY | 2024-10-04 11:00 | XMS_ITS | Encounter Summary ---
Author Organization [email or web address] [facility] Address [address] [facility] 7t [place] [address] Care Team Providers Care Computer Systems Design Analyst Name Role Phone Enid Diaz RESERVOIR CARETAKER Primary Care Provider [phone] Reason for Visit * Reason Comments Med Refill Encounter Details Date Type Department Care Team (Late st Contact Info) Description 02/11/2023 Refill [facility] [address] [place], [place] [phone] Name, MD Josef [address] [place], [place] [phone] Hypertension, unspecified type Social History Tobacco Use Types Packs/Day Years Used Date Smoking Tobacco: Never Smokeless Tobacco: Never Alcohol Use Standard Drinks/Week Comments Never 0 (1 standard drink = 0.6 oz pur e alcohol) Depression Answer Date Recorded Patient Health Questionnaire-9 Score 0 05/21/2022 Depression Answer Date Recorded Patient Health Questionnaire-2 [...] Description 12/23/2024 1:00 PM EDT Office Visit [facility] [address] [place], [place] [phone] Karlene Hancock documented as of this encounter Visit Diagnoses Diagnosis Hypertension, unspecified type documented in this encounter Additional Health Concerns Assessment Noted Time PHQ-9 Depression Total Score: 0 12/20/20 22 3:26 PM EST documented as of this encounter Care Teams Computer Systems Design Analyst Relationship Specialty Start Date End Date Enid Diaz FNP [address] [place] [address] PCP - General Family Medicine 01/18/22 documented as of this encounter
--- OUTSIDE RECORDS SUMMARY | 2024-10-04 11:00 | XMS_ITS | Encounter Summary ---
Author Organization [employer] Address [address] [facility] 7t [place] [address] Care Team Providers Care Principal Systems Architect Name Role Phone Enid Diaz COOK ENCHILADA Primary Care Provider [phone] Encounter Details Date Type Department Care Team (Late st Contact Info) Description 05/05/2024 Orders Only [facility] & PEDS [address] [place], [place] [phone] Provider, MD Harvey Social History Tobacco Use Types Packs/Day Years [...] Description 12/23/2024 1:00 PM EDT Office Visit [facility] ADULT DENTAL [address] [place] [address] Karlene Hancock documented as of this encounter Procedures Procedure Name Priority Date/Time Associated Diagnosis Comments HM COLONOSCOPY Routine 04/16/2024 4:45 PM EST documented in this encounter Results * Hm Colonoscopy (04/16/2024 4:45 PM EST) us Historical Provider HEALTH MAINTENANCE Final Result documented in this encounter Visit Diagnoses Not on filedocumented in this encounter Additional Health Concerns Assessment Noted Time PHQ-9 Depression Total Score: 0 12/17/19 24 9:45 AM EDT documented as of this encounter Care Teams Principal Systems Architect Relationship Specialty Start Date End Date Enid Diaz FNP [address] [place] [address] PCP - General Family Medicine 01/18/22 documented as of this encounter
--- OUTSIDE RECORDS SUMMARY | 2024-10-04 11:00 | XMS_ITS | Encounter Summary ---
Author Organization [employer] Address [address] [facility] [address] 7t [place] [address] Care Team Providers Care Heading And Priming Tool Setter Name Role Phone Enid Diaz LAMINATOR Primary Care Provider [phone] Encounter Details Date Type Department Care Team (Late Contact Info) Description 08/30/2022 Orders Only [facility] PEDS [address] [place] [address] Winnie Harris LPN Social History Tobacco Use Types Packs/Day Years [...] Orientation Straight 04/01/2022 10 :14 AM EDT COVID-19 Exposure Response Date Recorded In the last 10 days, have yo u been in contact with someone who was confirmed or suspected to have Coronavirus/COVID-19? No / Unsure 08/23/2022 1:44 PM EDT documented as of this encounter Plan of Treatment Upcoming Encounters Date Type Department Care Team (Late st Contact Info) Description 12/23/2024 1:00 PM EDT Office Visit [facility] ADULT [facility] [address] [place] [address] Karlene Hancock documented as of this encounter Visit Diagnoses Not on filedocumented in this encounter Additional Health Concerns Assessment Noted Time PHQ-9 Depression Total Score: 0 05/21/20 22 3:26 PM EST documented as of this encounter Care Teams Heading And Priming Tool Setter Relationship Specialty Start Date End Date Enid Diaz FNP [address] [place] [address] PCP - General Family Medicine 01/18/22 documented as of this encounter
--- OUTSIDE RECORDS SUMMARY | 2024-10-04 11:00 | XMS_ITS | Clinical Summary ---
Author Organization [facility] Address [address] [place] [address] Phone Care Team Providers Care Vice President Investor Relations Name Role Phone Arlene Wong NP Primary Care Provider [phone] Allergies Active Allergy Reactions Criticality Noted Date [...] Due Date Last Done Comments Pneumococcal Vaccine: 50+ Ye ars (1 of 2 - PCV) [birth year]10/1972 Colorectal Cancer Screening: Annual FOBT 2002 Colorectal Cancer Screening: Colonoscopy 2002 Colorectal Cancer Screening: Sigmoidoscopy 2002 Influenza Vaccine (Season Ended) 2025 Hepatitis B Vaccine Aged Out No longe r eligible based on patient's age to complete this topic Insurance [facility] [place] [address] [facility] [place] [address] Care Teams Vice President Investor Relations Relationship Specialty Start Date End Date Arlene Wong NP PCP - General 06/12/20
[2024-10-04 11:23] LABS: MANUAL DIFF FLAG NO
[2024-10-04 11:35] LABS: Basophils Absolute Auto 0.1 X10*3/uL (0.0-0.2); Basophils Percent Auto 0.7 % (0-2); Eosinophils Absolute Auto 0.4 X10*3/uL (0.0-0.4); Hemoglobin 14.8 g/dl (14.0-18.0); Imm Gran Abs Auto 0.04 X10*3/uL (0.00-0.03); Imm Gran Pct Auto 0.3 % (0.0-0.4); Lymphocytes Absolute Auto 3.1 X10*3/uL (1.2-4.9); Lymphocytes Percent Auto 26.4 % (20-40); Mean Corpuscular HGB Conc 33.6 g/dl (31.0-36.0); Mean Corpuscular Hemoglobin 33.9 pg (27.0-33.0); Mean Corpuscular Volume 100.9 fL (80.0-98.0); Mean Platelet Volume 11.7 fL (9.4-12.4); Monocytes Absolute Auto 0.8 X10*3/uL (0.1-1.2); Monocytes Percent Auto 6.9 % (2-11); Neutrophils Absolute Auto 7.4 x10*3/uL (2.0-8.3); Neutrophils Percent Auto 62.7 % (45-73); Platelet Count 196 X10*3/uL (160-400); Red Blood Count 4.36 X10*6/uL (4.60-5.80); Red Cell Distribution Width 12.1 % (11.0-16.0); White Blood Count 11.9 X10*3/uL (4.8-10.8)
[2024-10-04 11:37] LABS: Estimated Average Glucose 105 mg/dL; Hemoglobin A1C 131.1001 umol/L; Hemoglobin A1c % 5.3 % (<6.0); Total Hemoglobin (HGBA1C) 3752.1967 umol/L
[2024-10-04 12:07] LABS: Alanine Aminotransferase 24 U/L (0-40); Albumin Level 4.1 g/dL (3.5-5.0); Alkaline Phosphatase 58 U/L (39-117); Anion Gap 9 (12-20); Aspartate Amino Transferase 22 U/L (5-37); Blood Urea Nitrogen 16 mg/dL (9-16); Calcium 9.5 mg/dL (8.4-10.2); Carbon Dioxide 27 mmol/L (22-29); Chloride 110 mmol/L (96-108); Cholesterol 140 mg/dL (<200); Estimated Glomerular Filt Rate > 60; Glucose Random 140 mg/dL (60-115); Magnesium 1.9 mg/dL (1.6-2.6); Potassium 4.1 mmol/L (3.3-5.1); Sodium 142 mmol/L (135-145); Total Protein 6.8 g/dL (6.5-8.0); Triglycerides 78 mg/dL (<150)
[2024-10-04 12:16] LABS: HIV AB/AG Nonreactive (Nonreactive); HIV Num 1 0.14 S/CO (0.00-0.99)
[2024-10-04 12:26] LABS: TSH reflex Free T4 0.86 uIU/mL (0.32-4.0); Vitamin D 25-OH Total 43.5 ng/mL (>30)
[2024-10-04 12:29] LABS: Folate 11.5 ng/mL (> or = 4.0); Vitamin B12 227 pg/mL (200-900)
[2024-10-04 12:42] LABS: HDL Cholesterol 72 mg/dL (>40); LDL Cholesterol Calculated 53 mg/dL (<100)
[2024-10-04 13:01] LABS: Creatinine Urine 87.42 mg/dL
[2024-10-05 14:18] LABS: HCV Log PCR <1.18 NOT DETECTED Log IU/mL (NOT DETECTED); HepC Viral Load <15 NOT DETECTED IU/mL (NOT DETECTED)
[2024-10-06 11:29] LABS: RPR Rapid Plasma Reagin NON-REACTIVE (NON-REACTIVE)
== END 2024-10-04 09:54 | disposition home or self-care (01) ==
LOC: HO.HHCL 09:53
PROVIDERS: Internal Medicine Hypertension Specialist; Visit Provider Registered Nurse
DX: Z00.00 Encounter for general adult medical examination without abnormal findings (principal); N18.9 Chronic kidney disease, unspecified; Z13.1 Encounter for screening for diabetes mellitus
CPT/HCPCS: 36415; 80053; 80061; 82043; 82306; 82570; 82607; 82746; 83036; 83735; 84443; 85025; 86592; 87389; 87522

== ENCOUNTER 2024-10-05 11:55 | Outpatient (AMB) | payer OTHER, SELFPAY ==
--- NOTE | 2024-10-05 12:11 | HO.NEPHOV_ITS ---
Vital Signs 10/05/24 12:12 10/05/24 12:21 Height 5 ft 6.5 in Weight 194 lb BMI 30.8 BP 148/80 H 130/80 Blood Pressure Location Rt brachial Rt brachial Position Sitting Sitting Pulse 73 Pulse Source Pulse Oximeter Pulse Oximetry (%) 98 Oxygen Delivery Method Room Air Intake Visit Reasons: CKD/ LVM Cargo Station Worker Required: Yes Cargo Station Worker Name: Akbar [id number] Accompanied by: Self / Same As Patient Allergies ibuprofen [From MOTRIN] Allergy (Intermediate, Verified 10/05/24 12:14) GI PROBLEM, GI upset dicloxacillin Allergy (Unknown, Verified 10/05/24 12:14) Unknown Penicillins [PENICILLINS] Allergy (Unknown, Verified 10/05/24 12:14) UNKNOWN Medication List - Last Reconciled 10/05/24 by Nacho Carmona MD amlodipine 2.5 mg PO DAILY cholecalciferol (vitamin D3) (Vitamin D3) 50 mcg PO DAILY levothyroxine 112 mcg PO Q2D levothyroxine 125 mcg PO Q2D loratadine 10 mg PO DAILY PRN losartan 50 mg PO DAILY pantoprazole 40 mg PO DAILY rosuvastatin 10 mg PO BEDTIME sildenafil (Viagra) 50 - 100 mg PO DAILY PRN HPI Comments Details: Elderly man with HTN and CKD 03/30/24;Feels better. No new issues 10/05/24 : Overall doing OK Gained weight from last visit. [facility] Medical History Tubular adenoma of colon GERD (gastroesophageal reflux disease) Kidney disease High cholesterol Hypothyroid Colon abnormality Asthma History of adenomatous polyp of colon Hypertension Surgical History Hx of colonoscopy (~04/16/24) H/O colonoscopy H/O: hemorrhoidectomy Status post total hip replacement, bilateral Social History Are you a primary landcare officer to a significant other at home: No Do you presently have visiting nurse or other home services: No Alcohol intake: never Patient Tobacco Use Status: Never used Tobacco Current occupational status: disabled Physical Exam Vital Signs: Last Vital Signs Pulse 73 10/05/24 12:12 BP 130/80 10/05/24 12:21 Pulse Ox 98 10/05/24 12:12 Oxygen Delivery Method Room Air 10/05/24 12:12 BMI result Body Mass Index 30.8 Const General: comfortable; No acute distress Orientation/consciousness: patient oriented x3 Eyes General: appearance normal, both eyes and all related structures Visual Schilling: normal visual schilling by confrontation Neck Neck: Yes supple and Yes no JVD Resp Effort & Inspection: normal respiratory effort and respiratory effort not decreased Cardio Palpation: no palpable S3 and no palpable S4 Heart sounds: no rubs GI Inspection: Yes normal to inspection Palpation (GI): Soft to palpation Percussion: Yes normal to percussion Auscultation: normal bowel sounds General: Yes no CVA tenderness Back/Spine/Pelvis Back: no CVA tenderness Skin General skin exam: no petechiae and no purpura Neuro General: patient oriented x3 and no focal motor deficits Extrem General: No clubbing and No edema Results Reviewed Nephrology Results: Hgb 14.8 g/dl (14.0-18.0) 10/04/24 WBC 11.9 X10*3/uL (4.8-10.8) H 10/04/24 Plt Count 196 X10*3/uL (160-400) 10/04/24 Sodium 142 mmol/L (135-145) 10/04/24 Potassium 4.1 mmol/L (3.3-5.1) 10/04/24 Chloride 110 mmol/L (96-108) H 10/04/24 Carbon Dioxide 27 mmol/L (22-29) 10/04/24 BUN 16 mg/dL (9-16) 10/04/24 Creatinine 1.10 mg/dL (0.5-1.4) 10/04/24 Calcium 9.5 mg/dL (8.4-10.2) 10/04/24 PTH Intact 89.6 pg/mL (8.7-77.1) H 03/29/24 Urine Creatinine 87.42 mg/dL 10/04/24 Assessment & Plan Assessment & Plan (1) Hypertension: Code(s): I10 - Essential (primary) hypertension Category: Medical Plan: BP well controlled Stay on low salt diet No change in meds h/o Mild hypercalcemia- stands corrected Repeat PTH ordered (2) CKD (chronic kidney disease): Code(s): N18.9 - Chronic kidney disease, unspecified Category: Medical Plan: Mild CKD Avoid nephrotoxins and NSAIDS Keep BP < 130/80 Orders: Orders Basic Metabolic Panel 6 Months I10 - Essential (primary) hypertension, N18.9 - Chronic kidney disease, unspecified Parathyroid Hormone Intact 6 Months I10 - Essential (primary) hypertension, N18.9 - Chronic kidney disease, unspecified Coding Level of Care Code Est Pt Level 4 (75739) Diagnoses Hypertension I10 CKD (chronic kidney disease) N18.9
[2024-10-05 12:12] VITALS: BP 148/80; PULSE 73; O2SAT 98; BMI 30.8
[2024-10-05 12:21] VITALS: BP 130/80
--- OUTSIDE RECORDS SUMMARY | 2024-10-05 13:29 | XMS_ITS | Encounter Summary ---
Author Organization [employer] Address [address] [facility] 7t [place] [address] Care Team Providers Care Kitchen Help Handyman Name Role Phone Enid Diaz GAME TECHNICIAN Primary Care Provider [phone] Encounter Details Date Type Department Care Team (Late st Contact Info) Description 10/04/2024 Orders Only GENERIC EXTERNAL DATA DEPARTMENT Provider, Generic External Data Social History Tobacco Use Types Packs/Day Years [...] Description 12/23/2024 1:00 PM EDT Office Visit [facility] [address] [place] [address] Karlene Hancock documented as of this encounter Procedures Procedure Name Priority Date/Time Associated Diagnosis Comments CBC WITH AUTO DIFFERENTIAL Routine 10/04/2024 9:56 AM EDT documented in this encounter Results * (ABNORMAL) CBC auto differential (10/04/2024 9:56 AM EDT) White Blood Count 11.9(H) 4.8 - 10.8 X10*3/uL [facility] Red Blood Count 4.36(L) 4.60 - 5.80 X10*6/uL [facility] Hemoglobin 14.8 14.0 - 18.0 g/dl [facility] Hematocrit 44.0 42.0 - 52.0 % [facility] Mean Corpuscular Volume 100.9(H) 80.0 - 98.0 fL [facility] Mean Corpuscular Hemoglobin 33.9(H) 27.0 - 33.0 pg [facility] Mean Corpuscular HGB Conc 33.6 31.0 - 36.0 g/dl [facility] Red Cell Distribution Width 12.1 11.0 - 16.0 % [facility] Platelet Count 196 160 - 400 X10*3/uL [facility] Mean Platelet Volume 11.7 9.4 - 12.4 fL [facility] Neutrophils Percent Auto 62.7 45 - 73 % [facility] Imm Gran Pct Auto 0.3 0.0 - 0.4 % [facility] Lymphocytes Percent Auto 26.4 20 - 40 % [facility] Monocytes Percent Auto 6.9 2 - 11 % [facility] Eosinophils Percent Auto 3.0 0 - 4 % [facility] Basophils Percent Auto 0.7 0 - 2 % [facility] NRBC Pct Auto 0.0 0.0 - 0.2 /100WBC [facility] Neutrophils Absolute Auto 7.4 2.0 - 8.3 x10*3/uL [facility] Imm Gran Abs Auto 0.04(H) 0.00 - 0.03 X10*3/uL [facility] Lymphocytes Absolute Auto 3.1 1.2 - 4.9 X10*3/uL [facility] Monocytes Absolute Auto 0.8 0.1 - 1.2 X10*3/uL [facility] Eosinophils Absolute Auto 0.4 0.0 - 0.4 X10*3/uL [facility] Basophils Absolute Auto 0.1 0.0 - 0.2 X10*3/uL [facility] NRBC Abs Auto 0.000 0.0 - 0.012 X10*3/uL [facility] 10/04/2024 9:56 AM EDT 10/04/2024 11:19 AM EDT us Generic External Data Provider LAB BLOOD ORDERAB LES Final Result [facility] [address] [place] [address] [phone] documented in this encounter Visit Diagnoses Not on filedocumented in this encounter Additional Health Concerns Assessment Noted Time PHQ-9 Depression Total Score: 0 12/17/19 24 9:45 AM EDT documented as of this encounter Care Teams Kitchen Help Handyman Relationship Specialty Start Date End Date Enid Diaz FNP [address] [place] [address] PCP - General Family Medicine 01/18/22 documented as of this encounter
--- OUTSIDE RECORDS SUMMARY | 2024-10-05 13:30 | XMS_ITS | Encounter Summary ---
Author Organization [employer] Address [address] [facility] 7t [place] [address] Care Team Providers Care Manager Employee Relations Name Role Phone Enid Diaz Primary Care Provider [phone] Reason for Visit * Reason Comments Med Refill Encounter Details Date Type Department Care Team ([facility] st Contact Info) Description 12/03/2023 Refill [facility] [address] [place] [address] Enid Diaz FNP [address] [place] [address] Erectile dysfunction, unspecified erectile dysfunction type Social [...] Description 12/23/2024 1:00 PM EDT Office Visit [facility] ADULT DENTAL [address] [place] [address] Karlene Hancock documented as of this encounter Visit Diagnoses Diagnosis Erectile dysfunction, unspecified erectile dysfunction type documented in this encounter Additional Health Concerns Assessment Noted Time PHQ-9 Depression Total Score: 2 09/17/19 24 10:52 AM EDT documented as of this encounter Care Teams Manager Employee Relations Relationship Specialty Start Date End Date Enid Diaz FNP [address] [place] [address] PCP - General Family Medicine 01/18/22 documented as of this encounter
--- OUTSIDE RECORDS SUMMARY | 2024-10-05 13:30 | XMS_ITS | Encounter Summary ---
Author Organization [employer] [facility] Address [address] [place] [address] [address]t [place] [address] Care Team Providers Care Artist'S Manager Name Role Phone Enid Diaz Primary Care Provider [phone] Encounter Details Date Type Department Care Team (Latest Contact Info) Description 12/10/2018 Abstract [facility] CONVERSIONS Dental, Provider, DDS Social History Tobacco [...] Upcoming Encounters Date Type Department Care Team ( st Contact Info) Description 12/23/2024 1:00 PM EDT Office Visit [facility] ADULT DENTAL [address] [place] [address] Karlene Hancock documented as of this encounter Visit Diagnoses Not on filedocumented in this encounter Care Teams Artist'S Manager Relationship Specialty Start Date End Date Enid Diaz FNP [address] [place] [address] PCP - General Family Medicine 01/18/22 documented as of this encounter
--- OUTSIDE RECORDS SUMMARY | 2024-10-05 13:30 | XMS_ITS | Encounter Summary ---
Author Organization [employer] Address [address] [facility] [address]t [place] [address] Care Team Providers Care Maternal Fetal Physician Name Role Phone Enid Diaz CAP COVERER Primary Care Provider [phone] Encounter Details Date Type Department Care Team ([facility] st Contact Info) Description 05/05/2024 Orders Only [facility] CH[facility] MED & PEDS [address] [place], [place] [phone] Provider, MD Harvey Social History Tobacco Use [...] Description 12/23/2024 1:00 PM EDT Office Visit [facility] ADULT DENTAL [address] [place] [address] Karlene Hancock documented as of this encounter [...] documented as of this encounter Care Teams Maternal Fetal Physician Relationship Specialty Start Date End Date Enid Diaz FNP [address] [place] [address] PCP - General Family Medicine 01/18/22 documented as of this encounter
--- OUTSIDE RECORDS SUMMARY | 2024-10-05 13:30 | XMS_ITS | Encounter Summary ---
Author Organization [employer] [facility] Address [address] [facility] 7t [place] [address] Care Team Providers Care Trolley Car Overhauler Name Role Phone Enid Diaz YARN INSPECTOR Primary Care Provider [phone] Reason for Visit * Reason Comments Med Refill Encounter Details Date Type Department Care Team (Late st Contact Info) Description 02/11/2023 Refill [facility] [address] [place] [address] Name, MD Josef [address] [place] [address] Hypertension, unspecified type Social History Tobacco Use [...] Description 12/23/2024 1:00 PM EDT Office Visit [facility] ADULT DENTAL [address] [place] [address] Karlene Hancock documented as of this encounter Visit Diagnoses Diagnosis Hypertension, unspecified type documented in this encounter Additional Health Concerns Assessment Noted Time PHQ-9 Depression Total Score: 0 05/21/20 3:26 PM EST documented as of this encounter Care Teams Trolley Car Overhauler Relationship Specialty Start Date End Date Enid Diaz FNP [address] [place] [address] PCP - General Family Medicine 01/18/22 documented as of this encounter
--- OUTSIDE RECORDS SUMMARY | 2024-10-05 13:30 | XMS_ITS | Encounter Summary ---
Author Organization [email or web address] Address [address] [facility] 7t [place] [address] Care Team Providers Care Bargeman Name Role Phone Enid Diaz [employer]MPER BULK SYSTEM Primary Care Provider [phone] Encounter Details Date Type Department Care Team (Late Contact Info) Description 08/30/2022 Orders Only [facility] MED & PEDS [address] [place] [address] Winnie Harris LPN Social History Tobacco Use [...] Description 12/23/2024 1:00 PM EDT Office Visit [facility] ADULT DENTAL [address] [place] [address] Karlene Hancock documented as of this encounter Visit Diagnoses Not on filedocumented in this encounter Additional Health Concerns Assessment Noted Time PHQ-9 Depression Total Score: 0 05/21/20 3:26 PM EST documented as of this encounter Care Teams Bargeman Relationship Specialty Start Date End Date Enid Diaz FNP [address] [place] [phone] PCP - General Family Medicine 01/18/22 documented as of this encounter
--- OUTSIDE RECORDS SUMMARY | 2024-10-05 13:30 | XMS_ITS | Encounter Summary ---
Author Organization [employer] Address [address] [facility] 7t [place] [address] Care Team Providers Care Pediatric Neurologist Name Role Phone Enid Diaz Primary Care Provider [phone] Reason for Visit * Reason Comments Med Refill Encounter Details Date Type Department Care Team ([facility] st Contact Info) Description 04/29/[address] [facility] [address] [place] [address] Enid Diaz FNP [address] [place] [address] Hypothyroidism, unspecified type Social History Tobacco Use [...] Please ask him to come to the [facility] to complete blood work at his convenience, thank you! documented in this encounter Plan of Treatment Upcoming Encounters Date Type Department Care Team (Late st Contact Info) Description 12/23/2024 1:00 PM EDT Office Visit [facility] ADULT DENTAL [address] [place] [address] Karlene Hancock documented as of this encounter Procedures Procedure Name Priority Date/Time Associated Diagnosis Comments TSH W/REFLEX TO FT4 Routine 05/01/2023 9 :25 AM EST Hypothyroidism, unspecified type documented in this encounter Results * TSH W/Reflex to FT4 (05/01/2023 9:25 AM EST) TSH reflex Free T4 0.62 0.32 - 4.0 uIU/mL [facility] Blood 05/01/2023 9:25 AM EST 05/01/2023 11:13 AM EST us Enid MAYS LAB BLOOD ORDERABLES Final Res ult [facility] [address] [place] [address] [phone] documented in this encounter Visit Diagnoses Diagnosis Hypothyroidism, unspecified type documented in this encounter Additional Health Concerns Assessment Noted Time PHQ-9 Depression Total Score: 0 05/21/20 22 3:26 PM EST documented as of this encounter Care Teams Pediatric Neurologist Relationship Specialty Start Date End Date Enid Diaz FNP [address] [place] [address] PCP - General Family Medicine 01/18/22 documented as of this encounter
--- OUTSIDE RECORDS SUMMARY | 2024-10-05 13:30 | XMS_ITS | Clinical Summary ---
Author Organization [facility] Address [address] [place] [address] Phone Care Team Providers Care Pediatric Acute Care Unit Nurse Name Role Phone Arlene Wong NP Primary Care Provider [phone] Allergies Active Allergy Reactions Criticality Noted Date [...] patient's age to complete this topic Insurance [facility] [place] [id number] [facility] [place] [id number] Care Teams Pediatric Acute Care Unit Nurse Relationship Specialty Start Date End Date Arlene Wong NP PCP - General 06/12/20
--- OUTSIDE RECORDS SUMMARY | 2024-10-05 13:30 | XMS_ITS | Clinical Summary ---
Author Organization [employer] Address [address] [facility] 7t [place] [address] Care Team Providers Care Feed Elevator Worker Name Role Phone Enid Diaz PLATFORM BUILDER Primary Care Provider [phone] Allergies Active Allergy Reactions Criticality Noted Date [...] of tubular adenoma of colon Followed by [facility] general surgery-Dr. Bowling Colonoscopy April 2024. Removed [...] maintenance 04/09/2023 Overview (07/08/2024): Colonoscopy: 04/16/24 at [facility] (Dr. Bowling). Multiple tubular adenomas. Next due: [...] med safety and SE. -Consider referral to VIAL GAUGER program if need for tramadol persists Assessment & Plan (12/04/2022 6:07 PM EDT): -Tramadol 50mg daily PRN sent to pharmacy - shared decision making to use as infrequently as possible, while still maintaining ability to function in ADLs. (plan for 15 tablets total/month). If benefits > risks and pt continues to request refill of med, will consider VIAL GAUGER contract -Reviewed med safety and SE. Has [...] to request refill of med, will consider VIAL GAUGER contract -Reviewed med safety and SE. Narcan [...] Continue following with nephrology- Dr. Griffith at [facility]. H/o mild hypercalcemia - following calcium and PTH Repeat BMP and microalbumin Assessment & Plan (12/17/2023 10:49 AM EDT): Continue following with nephrology- Dr. Griffith at [facility]. H/o mild hypercalcemia - following with repeat calcium and PTH on routine basis Assessment & Plan (09/21/2023 8:37 PM EDT): Continue following with nephrology- Dr. Griffith at [facility]. Per consult note Jul 2023: h/o mild hypercalcemia - following with repeat calcium and PTH Assessment & Plan (08/06/2023 4:47 PM EST): Continue following with nephrology- Dr. Griffith at [facility] Assessment & Plan (12/04/2022 6:04 [...] Encounters Date Type Department Care Team Description 10/04/2024 Orders Only GENERIC EXTERNAL DATA DEPARTMENT Provider, Generic External Data 09/15/2024 Telephone [facility] [address] [place] [address] Enid Diaz FNP 09/14/2024 Refill [facility] MED & PEDS [address] [place] [address] Enid Diaz, PLATFORM BUILDER Acquired hypothyroidism 09/05/2024 Refill [facility] [address] [place] [address] Enid Diaz FNP 07/20/2024 Telephone [facility] [address] [place] [address] Ilda Bajwa, RN Results 07/15/2024 11:00 AM EST Office Visit [facility] ADULT DENTAL [address] [place] [address] Karlene Hancock Dental calculus (Primary Dx); Dental plaque from Last 3 Months Immunizations Name Administration [...] Bivalent 12/04/2022 Pfizer Covid-19 Vaccine 12+ 07/07/2024, 4 Pneumococcal Conjugate PCV 13 09/24/2018 Pneumococcal Polysaccharide [...] Description 12/23/2024 1:00 PM EDT Office Visit [facility] ADULT [facility] [address] [facility] [place] [address] Karlene Hancock Health Maintenance Due Date Last [...] Mouth 06/13/2026 024, 03/23/2013, 04/22/2012 Lipid Panel 10/04/2029 10/04/2024, 0412/2023, 04/24/2022, Additional history exists DTaP/Tdap/Td Vaccines (3 - [...] AUTO DIFFERENTIAL Routine 10/04/2024 9:56 AM EDT VITAMIN D,25-OH,TOTAL,IA Routine 10/04/2024 9:56 AM EDT Healthcare maintenance HIV 1/2 ANTIGEN/ANTIBODY, FOURTH GENERATION W/RFL Routine 10/04/2024 9:56 AM EDT Healthcare maintenance Memory changes COMPREHENSIVE METABOLIC PANEL Routine 10/04/2024 9:56 AM EDT Healthcare maintenance TSH W/REFLEX TO FT4 Routine 10/04/2024 9 :56 AM EDT Healthcare maintenance Memory changes HEMOGLOBIN A1C Routine 10/04/2024 9:56 AM EDT Healthcare maintenance LIPID PANEL, STANDARD Routine 10/04/2024 9:56 AM EDT Healthcare maintenance MAGNESIUM Routine 10/04/2024 9:56 AM EDT Healthcare maintenance Memory changes VITAMIN B12/FOLATE, SERUM PANEL Routine 10/04/2024 9:56 AM EDT Healthcare maintenance Memory changes ALBUMIN, RANDOM URINE W/CREATININE Routine 10/04/2024 9:51 AM EDT Healthcare maintenance PERIODIC ORAL EVALUATION - ESTABLISHED PATIENT Routine [...] teeth, acquired Dental plaque Dental root caries INTRAORAL - COMPLETE SERIES OF RADIOGRAPHIC IMAGES Routine 06/12/2023 3:00 PM EST Dental calculus Periodontal disease Missing teeth, acquired Generalized gingival recession, moderate HEPATITIS C AB W/REFL TO HCV RNA, QN, PCR Routine 10/01/2022 10:10 AM EDT from Last 3 Months or Most Recently Relevant to Health Maintenance Results * Vitamin D, 25-Hydroxy, Total, Immunoassay (10/04/2024 9:56 AM EDT) Vitamin D 25-OH Total 43.5 >30 ng/mL [facility] Comment: Health Based Reference Values*< 20 ??ng/mL ??[id number] ng/mL ??Insufficient> 30 ??ng/mL ??Sufficient*Gabriel JIMENES. N Engl J Med. 2007;357:266-280There is no well-established upper level of normal vitamin Dlevels. Some laboratories use 50 ng/mL as an upper limit ofnormal. However, toxicity is patient-dependent and may occurat any level. Careful correlation with the patient'spresentation is necessary and, if there is concern forvitamin D toxicity, treatment should be consideredirrespective of the serum level.Care must be taken in interpreting Vitamin D results fromdifferent laboratories and methodologies. ??Published datademonstrated that results from patients undergoinghemodialysis may show a negative bias when tested withvarious automated 25-OH vitamin D assays when compared toLC- MS/MS.When testing samples from patients whose predominant form ofVitamin D is Vitamin D2, such as patients receiving VitaminD2 supplementation, results that are subtherapeutic shouldbe confirmed with another method such as LC-MS/MS. Blood Venous blood specimen / Unknown 10/04/2024 9:56 AM EDT 10/04/2024 11:19 AM EDT us Enid Diaz [facility] LAB BLOOD ORDERABLES Final Res ult [facility] [address] [place] [phone] * Vitamin B12/Folate, Serum Panel (10/04/2024 9:56 AM EDT) Vitamin B12 227 200 - 900 pg/mL [facility] Comment:NORMAL 200-900 PG/ML INDETERMINATE 160-199 PG/ML DEFICIENT < 160 PG/ML Folate 11.5 > or = 4.0 ng/mL [facility] Comment:Reference Values:> o r = 4.0 ng/mL< 4.0 ng/mL suggests folate deficiency Methotrexate, aminopterin and folinic acid(leucovorin) are chemotherapeutic agents whose molecularstructures are similar to folate; therefore, the Architectfolate assay cannot be used for patients using these drugs. Blood Venous blood specimen / Unknown 10/04/2024 9:56 AM EDT 10/04/2024 11:19 AM EDT us Enid Diaz PLATFORM BUILDER LAB BLOOD ORDERABLES Final Res ult Performing Organization Address City/[facility]/ZIP Co de Phone Number [facility] [address] [place] [address] [phone] * TSH with Reflex to Free T4 (10/04/2024 9:56 AM EDT) TSH reflex Free T4 0.86 0.32 - 4.0 uIU/mL [facility] Blood 10/04/2024 9:56 AM EDT 10/04/2024 11:19 AM EDT us Enid Diaz PLATFORM BUILDER LAB BLOOD ORDERABLES Final Res ult Performing Organization Address [facility] Co de Phone Number [facility] [address] [place] [address] [phone] * (ABNORMAL) CBC auto differential (10/04/2024 9:56 AM EDT) Pathologist [facility] White Blood Count 11.9(H) 4.8 - 10.8 X10*3/uL [facility] Red Blood Count 4.36(L) 4.60 - 5.80 X10*6/uL [facility] Hemoglobin 14.8 14.0 - 18.0 g/dl [facility] Hematocrit 44.0 42.0 - 52.0 % [facility] Mean Corpuscular Volume 100.9(H) 80.0 - 98.0 fL [facility] Mean Corpuscular Hemoglobin 33.9(H) 27.0 - 33.0 pg [facility] Mean Corpuscular HGB Conc 33.6 31.0 - 36.0 g/dl [facility] Red Cell Distribution Width 12.1 11.0 - 16.0 % [facility] Platelet Count 196 160 - 400 X10*3/uL [facility] Mean Platelet Volume 11.7 9.4 - 12.4 fL [facility] Neutrophils Percent Auto 62.7 45 - 73 % [facility] Imm Gran Pct Auto 0.3 0.0 - 0.4 % [facility] Lymphocytes Percent Auto 26.4 20 - 40 % [facility] Monocytes Percent Auto 6.9 2 - 11 % [facility] Eosinophils Percent Auto 3.0 0 - 4 % [facility] Basophils Percent Auto 0.7 0 - 2 % [facility] NRBC Pct Auto 0.0 0.0 - 0.2 /100WBC [facility] Neutrophils Absolute Auto 7.4 2.0 - 8.3 x10*3/uL [facility] Imm Gran Abs Auto 0.04(H) 0.00 - 0.03 X10*3/uL [facility] Lymphocytes Absolute Auto 3.1 1.2 - 4.9 X10*3/uL [facility] Monocytes Absolute Auto 0.8 0.1 - 1.2 X10*3/uL [facility] Eosinophils Absolute Auto 0.4 0.0 - 0.4 X10*3/uL [facility] Basophils Absolute Auto 0.1 0.0 - 0.2 X10*3/uL [facility] NRBC Abs Auto 0.000 0.0 - 0.012 X10*3/uL [facility] 10/04/2024 9:56 AM EDT 10/04/2024 11:19 AM EDT us Generic External Data Provider LAB BLOOD ORDERAB LES Final Result [facility] [address] [place] [address] [phone] * HIV-1/2 Antigen and Antibodies, Fourth Generation, with Reflexes (10/04/2024 9:56 AM EDT) HIV AB/AG Nonreactive Nonreactive [facility] Comment:HIV-1 p24 Ag and/or HIV-1/HIV-2 Ab not detected.A test result that is nonreactive does not exclude thepossibility of exposure to or infection with HIV-1 and/orHIV-2. Nonreactive results in this assay for individualswith prior exposure to HIV-1 and/or HIV-2 may be due toantigen and antibody levels that are below the limit ofdetection of this assay.The [employer] HIV Ag/Ab Combo assay result andsupplemental assay results should be interpreted inconjunction with the patient's clinical presentation,history and other laboratory results. If the results areinconsistent with clinical evidence, additional testing issuggested to confirm the result. Blood Venous blood specimen / Unknown 10/04/2024 9:56 AM EDT 10/04/2024 11:19 AM EDT us Enid Diaz [facility] LAB BLOOD ORDERABLES Final Res ult Performing Organization Address [facility] Co de Phone Number [facility] [address] [place] [phone] * Magnesium (10/04/2024 9:56 AM EDT) Magnesium 1.9 1.6 - 2.6 mg/dL [facility] Blood Venous blood specimen / Unknown 10/04/2024 9:56 AM EDT 10/04/2024 11:19 AM EDT Enid Diaz [facility] LAB BLOOD ORDERABLES Final Res ult Performing Organization Address [facility] Co de Phone Number [facility] [address] [place] [phone] * Hemoglobin A1c (10/04/2024 9:56 AM EDT) Hemoglobin A1c 5.3 <6.0 % [facility] Comment:Hemoglobin A1C Refer ence Range Adults: 4.8 - 6.0 % Non diabetic: < 6.0 % Goal: < 7.0 %Additional Action Suggested: > 8.0 %Note: Hemoglobin A1c results are invalid for patients with abnormal amounts of HbF. Blood transfusions may impact the HbA1c concentration in the patient sample. Estimated Average Glucose 105 mg/dL [facility] Comment:eAG = Estimated ave rage glucose which is %A1C expressed asaverage glucose, using the formula of the A6U-XklsoozPlgmygv Glucose study (ADAG), Diabetes Care, Vol.31,#8,Dec. 2007 Blood Venous blood specimen / Unknown 10/04/2024 9:56 AM EDT 10/04/2024 11:18 AM EDT Enid Jrbelinda [facility] LAB BLOOD ORDERABLES Final Res ult Performing Organization Address [facility] de Phone Number [facility] [address] [place] [phone] * Lipid Panel, Standard (10/04/2024 9:56 AM EDT) Triglycerides 78 <150 mg/dL [facility] Comment:Desirable Triglyceri de: less than 150 mg/dLBorderline High Triglyceride 150-199 mg/dLHigh Triglyceride: 200-499 mg/dLVery High Triglyceride: greater than or equal to 5OO mg/dL Cholesterol 140 <200 mg/dL [facility] Comment:Desirable Cholestero l: less than 200 mg/dLBorderline High Cholesterol: 200-239 mg/dLHigh Cholesterol: greater than 239 mg/dL LDL Cholesterol Calculated 53 <100 mg/dL [facility] Comment:Desirable LDL: less than 100 mg/dLNear Optimal/Above Optimal LDL: 110- 129 mg/dLBorderline High LDL: 130-159 mg/dLHigh LDL: 160-189 mg/dLVery High LDL: greater than or equal to 190 mg/dL HDL Cholesterol 72 >40 mg/dL [facility] Comment:Desirable HDL: great er than 40 mg/dL Note: This HDL assay may give artificially low results in patients with liver disease. Blood Venous blood specimen / Unknown 10/04/2024 9:56 AM EDT 10/04/2024 11:19 AM EDT us Enid Diaz PLATFORM BUILDER LAB BLOOD ORDERABLES Final Res ult Performing Organization Address [facility]/ZIP Co de Phone Number [facility] [address] [place] [address] [phone] * (ABNORMAL) Comprehensive Metabolic Panel (10/04/2024 9:56 AM EDT) Sodium 142 135 - 145 mmol/L [facility] Potassium 4.1 3.3 - 5.1 mmol/L [facility] Chloride 110(H) 96 - 108 mmol/L [facility] Carbon Dioxide 27 22 - 29 mmol/L [facility] Anion Gap 9(L) 12 - 20 [facility] Urea Nitrogen (BUN) 16 9 - 16 mg/dL [facility] Creatinine, Serum 1.10 0.5 - 1.4 mg/dL [facility] Estimated Glomerular Filt Rate >60 [facility] Comment:Chronic Kidney Disea se: Estimated GFR < 60 mL/min/1.61d5Xexrpf Kidney Disease: Estimated GFR < 15 mL/min/1.73m2 Glucose 140(H) 60 - 115 mg/dL [facility] Calcium 9.5 8.4 - 10.2 mg/dL [facility] Bilirubin, Total 1.0 0.0 - 1.0 mg/dL [facility] Aspartate Amino Transferase 22 5 - 37 U/L [facility] Alanine Aminotransferase 24 0 - 40 U/L [facility] Total Protein 6.8 6.5 - 8.0 g/dL [facility] Albumin Level 4.1 3.5 - 5.0 g/dL [facility] Alkaline Phosphatase 58 39 - 117 U/L [facility] Blood Venous blood specimen / Unknown 10/04/2024 9:56 AM EDT 10/04/2024 11:19 AM EDT us Enid Diaz PLATFORM BUILDER LAB BLOOD ORDERABLES Final Res ult [facility] [address] [place] [phone] [phone] * Albumin, Random Urine W/Creatinine (10/04/2024 9:51 AM EDT) Creatinine, Urine 87.42 mg/dL [facility] Microalbumin Urine 7.0 mg/L [facility] Microalbum Creatinine Ratio Ur 8.0 <30 ug/mg cr [facility] Comment:Albumin/Creatinine R atio Reference Ranges: Normal: < 30 ug/mg creatinine Microalbuminuria: 30 - 300 ug/mg creatinineClinical Albuminuria: > 300 ug/mg creatinine Urine 10/04/2024 9:51 AM EDT 10/04/2024 12:15 PM EDT us Enid Diaz PLATFORM BUILDER LAB URINE ORDERABLES Final Res ult Performing Organization Address City/State/[facility] Co de Phone Number [facility] [address] [place] [address] [phone] * XR Fingers 2+ Views Right (07/09/2024 9:00 AM EST) Anatomical Region Laterality Modality Upper Extremities, Fingers Right Radio graphic Imaging 07/09/2024 9:00 AM EST Narrative 07/09/2024 9:34 AM EST ?[facility] ?[address] ?[place] [address] ?XRay Report ? Signed ? Patient: Haas,Jose Angel ?MR#: [id number] ?? 80 ? : 1955 ?Acct:[id number] ? Age/Sex: 69 / M ?ADM Date: 07/09/24 ? Loc: HO.HHCX ? Attending Dr: Enid Diaz PLATFORM BUILDER ? Ordering Physician: Enid Diaz PLATFORM BUILDER ?? Date of Service: 07/09/24 ?? Procedure(s): XR finger RT min 2V ?? Accession Number(s): [id number] ? cc: Enid Diaz PLATFORM BUILDER ? EXAMINATION: ?? XR FINGER, RIGHT ? [...] Mackay MD ??07/09/2024 09:31 AM ?? EST ? Dictated By: ?Leonel Cameron MD ? Signed By: ?<Electronically signed by Leonel Cr MD in OV> ? 07/09/24 0931 ? DD/ 0900 ? TD/TT: 07/09/24 0907 ? Vp Of Digital Marketing: ? Procedure Note Kiera Powell - 07/09/[address] [address] XRay Report Signed Patient: Jose Angel HaasMR#: [id number] 80 : 3Acct:[id number] Age/Sex: 69 / MADM Date: 07/09/24 Loc: HO.HHCX Attending Dr: Enid MAYS Ordering Physician: Enid Diaz Date of Service: 07/09/24 Procedure(s): XR finger RT min 2V Accession Number(s): [id number] cc: Enid Diaz EXAMINATION: XR FINGER, RIGHT [...] MDin OV> 07/09/24930 DD/ 9 TD/TT: 07/09/24906 Vp Of Digital Marketing: us Enid Diaz PLATFORM BUILDER IMG XR PROCEDURES Final Result * Hm Colonoscopy (04/16/2024 4:45 PM EST) us Historical Provider HEALTH MAINTENANCE Final Result * Hepatitis C Antibody with Reflex to HCV, RNA, Quantitative, Real-Time PCR (10/01/2022 10:10 AM EDT) Hepatitis C Antibody NON-REACT SCOOTER NON-REACT SCOOTER [employer] Index 0.08 <1.00 [employer] Comment: HCV antibody was non-reactive. There is no laboratory evidence of HCV infection. In most cases, no further action is required. However, if recent HCV exposure is suspected, a test for HCV RNA (test code 73028) is suggested. For additional information please refer to http://education.[employer]/faq/LKF06f5 (This link is being provided for informational/ educational purposes only.) 10/01/2022 10:1 0 AM EDT 10/01/2022 10:11 AM EDT Eve Tejeda NP LAB BLOOD ORDERABLES Final Res ult [facility] [address], [place] [address] [employer] [address] [place] [phone] from Last 3 Months or Most Recently Relevant to Health Maintenance Insurance [facility] [employer] (HMO D-SNP) [place] [id number] [facility] Care Teams Feed Elevator Worker Relationship Specialty Start Date End Date Enid Diaz FNP [address] [place] [address] PCP - General Family Medicine 01/18/22
== END 2024-10-05 12:30 | disposition home or self-care (01) ==
LOC: HO.HKA 11:55
PROVIDERS: PCP Registered Nurse; Visit Provider Internal Medicine Hypertension Specialist
DX: I12.9 Hypertensive chronic kidney disease with stage 1 through stage 4 chronic kidney disease, or unspecified chronic kidney disease (principal); N18.9 Chronic kidney disease, unspecified
CPT/HCPCS: 99214

== ENCOUNTER → 2024-10-05 11:55 | Outpatient (BNVA) | payer OTHER, SELFPAY | PROVIDERS: PCP Registered Nurse; Visit Provider Internal Medicine Hypertension Specialist | DX: I12.9 Hypertensive chronic kidney disease with stage 1 through stage 4 chronic kidney disease, or unspecified chronic kidney disease (principal); N18.9 Chronic kidney disease, unspecified | CPT/HCPCS: 99212 ==

== ENCOUNTER 2025-01-04 20:30 | Emergency (ER) | payer OTHER, SELFPAY ==
--- NOTE | ~2025-01-04 | CT_ITS ---
CLINICAL HISTORY: LLQ Abd pain and tenderness CT abdomen and pelvis with contrast Comparison: DX/SR - XR HIP 1 VIEW RIGHT WITH PELVIS - 06/12/22 15:05 EST Findings: The lung bases are clear. The gallbladder and solid organs are within normal limits. No renal stones. No bowel obstruction, pneumoperitoneum, or pneumatosis. Limited visualization of the pelvis due to streak artifact from bilateral hip arthroplasty. Incomplete visualization of the bilateral distal ureterovesical junction. Partially visualized pelvic contents unremarkable. Normal appendix. No acute fracture. Intact bilateral hip arthroplasties. Arising from the right acetabulum and extending through the inferomedial right iliac bone at the pelvic brim is a solid density encapsulated structure measuring 32 Hounsfield units, extending into the right hemipelvis. IMPRESSION: Solid density encapsulated structure traversing the right acetabulum through the inferomedial right iliac bone and extending into the right hemipelvis. 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 Advise nonemergent follow-up with orthopedic surgery. No acute findings to correlate to patient's left lower abdominal symptoms. This document has been electronically signed by: Aaron Wasserman MD on 01/05/2025 03:23:25
--- NOTE | ~2025-01-04 | XR_ITS ---
CLINICAL HISTORY: pain 3 view, pelvis and left hip Comparison: X-ray of the pelvis and right hip from 06/12/2022. Findings: Osseous lucencies of the proximal remaining left femur are nonspecific and can be seen with chronic and/or subacute hardware loosening. No acute fracture about left hip arthroplasty hardware at this time. Right hip arthroplasty hardware also redemonstrated in the [id number]. Portions of the pelvis obscured without acute displaced fracture by radiographs. Vascular calcifications are redemonstrated. Degenerative changes of the imaged SI joints of the imaged spine. IMPRESSION: 1. Mild lucencies of the proximal left femur nonspecific. Differential considerations include bone resorption. Consider nonemergent nuclear medicine bone scan of the there is clinical concern for hardware loosening. 2. No acute displaced fracture by radiographs. This document has been electronically signed by: Fernando Little MD on 01/04/2025 21:30:14
--- NOTE | 2025-01-04 20:42 | ED_ITS ---
HPI - General Adult General Chief complaint: Back Pain/Injury Stated complaint: Hip pain Time Seen by Provider: 01/05/25 00:28 Source: patient Mode of arrival: ambulatory Limitations: no limitations History of Present Illness ED Provider: Santos FLOR HPI narrative: The patient is a 69-year-old male presenting to the ED for evaluation of 2 weeks of pain in his low back radiating into his hips and abdomen. The patient reports pain began 2 Mondays ago on the right side shortly after eating, reports his right-sided pain lasted approximately 1 week until this past Friday when the pain radiated across to his left back and radiating into his left abdomen and hip. The patient reports pain on the right side has since subsided entirely however left sided pain has increased prompting ED evaluation. The patient denies any associated fever/chills, nausea, vomiting, diarrhea, constipation, or recent trauma. Patient reports history of bilateral hip replacements however denies surgical spinal history. The patient denies associated bowel/bladder incontinence, urinary retention, saddle paresthesias, or lower extremity weakness. Patient reports when pain began he is worried about his appendix however became more perplexed by his symptoms when pain radiating to the left this past Friday. Related Data Home Medications ?Medication ?Instructions ?Recorded ?Confirmed cholecalciferol (vitamin D3) 50 50 mcg PO DAILY 10/05/24 mcg (2,000 unit) capsule (Vitamin D3) loratadine 10 mg tablet 10 mg PO DAILY PRN Allergy S ymptoms 02/27/22 10/05/24 pantoprazole 40 mg tablet,delayed 40 mg PO DAILY 02/2710/05/24 release rosuvastatin 10 mg tablet 10 mg PO BEDTIME 02/27/22 sildenafil 100 mg tablet (Viagra) 50 - 100 mg PO DAILY PRN Erectile 02/27/22 10/05/24 Dysfunction amlodipine 2.5 mg tablet 2.5 mg PO DAILY 03/18/2411/24 levothyroxine 112 mcg tablet 112 mcg PO Q2D 03/30/24 0 10/05/24 levothyroxine 125 mcg tablet 125 mcg PO Q2D 03/30/24 0 10/05/24 Previous Rx's ?Medication ?Instructions ?Recorded losartan 50 mg tablet 50 mg PO DAILY #30 tabs 03/02 08/21 cyclobenzaprine 10 mg tablet 10 mg PO TID PRN muscle s pasm #14 01/05/25 tabs Allergies Allergy/AdvReac Type Severity Reaction Status Date / Time ibuprofen (From MOTRIN) Allergy Intermediate GI Verified 01/04/25 20:49 PROBLEM, GI upset dicloxacillin Allergy Unknown Unknown Verified 01/04/25 20:49 Penicillins (PENICILLINS) Allergy Unknown UNKNOWN Verified 01/04/25 20:49 Review of Systems 2 Review of Systems: Yes all other systems are reviewed and are negative PMFSH Past Medical History Medical History Tubular adenoma of colon GERD (gastroesophageal reflux disease) Kidney disease High cholesterol Hypothyroid Colon abnormality Asthma History of adenomatous polyp of colon Hypertension Surgical History Hx of colonoscopy (~04/16/24) H/O colonoscopy H/O: hemorrhoidectomy Status post total hip replacement, bilateral Social History Social History Are you a primary day care center director to a significant other at home: No Do you presently have visiting nurse or other home services: No Alcohol intake: current Alcohol intake frequency: 3 or more drinks per day Alcohol type: beer Patient Tobacco Use Status: Never used Tobacco Smoked in Last 30 Days: No Substance Use Type: Marijuana Advance Directives: No Advance Directives Information Provided: Yes Current occupational status: disabled Physical Exam ED Exam Exam: CONSTITUTIONAL: The patient appears non-toxic, well nourished and in no acute distress. Vital signs as documented. HEAD: Atraumatic, normocephalic. EYES: EOMs grossly intact, pupils equal, conjunctiva clear, no exudate. ENT: Nares patent, no discharge. Airway patent, no audible stridor, visible mucosa is pink and moist without noted lesions. NECK: Trachea is midline, no obvious masses or gross abnormalities. CHEST: Symmetric movement, normal appearance. No rib tenderness or crepitus. LUNGS: LS present and CTAB, no w/r/r. Non-labored work of breathing. CARDIAC: Regular Rhythm, S1/S2 appreciated, no murmurs, rubs or gallops. ABDOMEN: Abdomen soft and non-tender x4 quadrants, patient reports tenderness with palpation of the left flank, no palpable masses or organomegaly. Negative CVAT bilaterally. BACK: Lidocaine patches noted to the bilateral lumbar paraspinal regions, patient reports tenderness to palpation of the left SI joint, no tenderness on the right. : Deferred. EXTREMITIES: Normal tone, moves all extremities spontaneously without reported pain. Strength 5/5 in the bilateral lower extremities. No obvious acute injury or deformity noted. NEURO: Alert and oriented x3, CN II-XII appear grossly intact. Cerebellar Functioning grossly intact. No obvious sensory or motor deficits. Speech clear and appropriate. PSYCH: normal affect, appropriate eye contact, fluid speech, with appropriate response to questioning. No reported suicidality or homicidality. SKIN: Warm, dry, color appropriate, normal turgor. No rashes noted. Vital Signs: Vital Signs - 24 hr 01/04/25 20:43 01/04/25 23:57 01/05/25 02:07 Temperature 98.4 F 98.0 F Pulse Rate 65 55 55 Respiratory Rate 18 18 Blood Pressure 194/95 H 165/87 H 158/84 H Pulse Oximetry 97 96 95 Oxygen Delivery Method Room Air Room Air Room Air BMI result Body Mass Index 31.0 Course Course Course Narrative: This is a Rapid Medical Examination (RME) performed by Rubens Mclain PA-C in triage. Full HPI, ROS, assessment and treatment plan per primary provider in the Main ED. 69 yo Bangladeshi speaking male presents to the ER for evaluation of left sided anterior hip pain that radiates to his back. pain is acute on chronic. worsened today at 3pm. pain with walking. worried about his appendix. very poor historian. nontender abdomen on exam. +CVA tenderness on the left side. no urinary symptoms. took BP meds this morning. pain is 10/10 Plan: UA, labs, XR left hip Medications Administered Discontinued Medications Generic Name Dose Route Start Last Admin Trade Name Freq PRN Reason Stop Dose Admin Acetaminophen 975 mg 01/04/25 22:40 01/04/25 22:45 Acetaminophen 325 Mg Tablet PO 01/04/25 22:41 975 mg ONCE ONE Administration Sodium Chloride 1,000 mls @ 999 mls/hr 01/05/25 01:30 01/05/25 01:47 Ns IV 01/05/25 02:30 999 mls/hr .Q1H1M URI Administration Iohexol 85 ml 01/05/25 02:35 01/05/25 02:35 Iohexol 350 Mg/Ml 100 Ml Infus..Btl IV 01/05/25 02:36 85 ml ONCE ONE Administration Ketorolac Tromethamine 15 mg 01/05/25 01:22 01/05/25 01:48 Ketorolac Tromethamine 15 Mg/Ml Vial IVPUSH 01/05/25 01:23 15 mg ONCE ONE Administration Medical Decision Making Medical Decision Making [facility] Narrative: 3:53 AM 01/05/2025 (Sunshine FLOR): The patient is a 69-year-old male presenting to the ED for evaluation of 2 weeks of low back pain radiating to the abdomen which began on the right but then migrated to the left with a resolution of right-sided complaint. The patient has had no associated fever/chills, nausea, vomiting, diarrhea, or urinary symptoms. The patient's exam reveals tenderness of the left SI joint and left flank not overlying the ribs, no other areas of tenderness identified. The patient's laboratory evaluation is markedly reassuring, mild leukocytosis of 11.8, no anemia, electrolyte abnormality, or FABIOLA. The patient's urinalysis shows trace blood, no other acute findings. Hip x-ray ordered during she has process was negative for acute findings. Due to the patient's tenderness on exam and slight leukocytosis a CT abdomen was obtained. CT has now resulted and shows a solid density encapsulated structure traversing the right acetabulum and through the inferior medial right iliac bone and extending to the right hemipelvis. 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 There are no other acute findings to correlate with the patient's left lower abdominal pain/symptoms. Given the patient's reassuring exam and workup, the patient's symptoms are more likely musculoskeletal in nature, we will treat with anti-inflammatories, antispasmodics, and recommend outpatient follow up with Orthopedics for further evaluation of the nonemergent finding in the pelvis. Admission/Observation Consideration of admission/observation: Escalation of care including admission/observation considered Lab Data [facility] Lab Attestation statement: I reviewed the patient's lab results. 01/04/25 20:52 01/04/25 20:52 Labs: Lab Results 01/04/25 01/05/25 Range/Units 20:52 01:06 WBC 11.8 H (4.8-10.8) X10*3/uL RBC 4.45 L (4.60-5.80) X10*6/uL Hgb 15.4 (14.0-18.0) g/dl Hct 44.4 (42.0-52.0) % MCV 99.8 H (80.0-98.0) fL MCH 34.6 H (27.0-33.0) pg MCHC 34.7 (31.0-36.0) g/dl RDW 12.2 (11.0-16.0) % Plt Count 198 (160-400) X10*3/uL MPV 10.9 (9.4-12.4) fL Immature Gran % (Auto) 0.3 (0.0-0.4) % Neut % (Auto) 56.6 (45-73) % Lymph % (Auto) 33.8 (20-40) % Gregory % (Auto) 6.5 (2-11) % Eos % (Auto) 2.0 (0-4) % Baso % (Auto) 0.8 (0-2) % Lymph # (Auto) 4.0 (1.2-4.9) X10*3/uL Gregory # (Auto) 0.8 (0.1-1.2) X10*3/uL Eos # (Auto) 0.2 (0.0-0.4) X10*3/uL Baso # (Auto) 0.1 (0.0-0.2) X10*3/uL Abs Immat Gran (auto) 0.04 H (0.00-0.03) X10*3/uL Absolute Neuts (auto) 6.7 (2.0-8.3) x10*3/uL Absolute Nucleated RBC 0.000 (0.0-0.012) X10*3/uL Nucleated RBC % (auto) 0.0 (0.0-0.2) /100WBC Sodium 144 (135-145) mmol/L Potassium 4.1 (3.3-5.1) mmol/L Chloride 108 (96-108) mmol/L Carbon Dioxide 25 (22-29) mmol/L Anion Gap 15 (12-20) BUN 13 (9-16) mg/dL Creatinine 1.16 (0.5-1.4) mg/dL Estim Creat Clear Calc 60.3 Estimated GFR > 60 Random Glucose 122 H (60-115) mg/dL Calcium 9.4 (8.4-10.2) mg/dL Magnesium 2.0 (1.6-2.6) mg/dL Total Bilirubin 0.6 (0.0-1.0) mg/dL Direct Bilirubin 0.2 (0.0-0.5) mg/dL AST 27 (5-37) U/L ALT 31 (0-40) U/L Alkaline Phosphatase 66 (39-117) U/L Total Protein 7.5 (6.5-8.0) g/dL Albumin 4.4 (3.5-5.0) g/dL Urine Color Yellow Urine Appearance Clear Urine pH 5.5 (5.0-9.0) Ur Specific Talmage 1.015 (1.005-1.025) Urine Protein Negative (Neg-Trace) mg/dL Urine Glucose (UA) Negative (Negative) mg/dL Urine Ketones Negative (Negative) mg/dL Urine Blood Trace H (Negative) Urine Nitrite Negative (Negative) Ur Leukocyte Esterase Negative (Negative) Urine RBC 0-2 (0-2) /HPF Urine WBC 0-5 (0-5) /HPF Ur Squamous Epith Cells 0-2 (0-2) /HPF Urine Bacteria None Seen (None Seen) Hyaline Casts 0-2 (0-2) /LPF Radiology Impression Discussion of test interpretation with radiology: I have reviewed the radiologist's reading. Radiologist Impression: CLINICAL HISTORY: LLQ Abd pain and tenderness CT abdomen and pelvis with contrast Comparison: DX/SR - XR HIP 1 VIEW RIGHT WITH PELVIS - 06/12/22 15:05 EST Findings: The lung bases are clear. The gallbladder and solid organs are within normal limits. No renal stones. No bowel obstruction, pneumoperitoneum, or pneumatosis. Limited visualization of the pelvis due to streak artifact from bilateral hip arthroplasty. Incomplete visualization of the bilateral distal ureterovesical junction. Partially visualized pelvic contents unremarkable. Normal appendix. No acute fracture. Intact bilateral hip arthroplasties. Arising from the right acetabulum and extending through the inferomedial right iliac bone at the pelvic brim is a solid density encapsulated structure measuring 32 Hounsfield units, extending into the right hemipelvis. IMPRESSION: Solid density encapsulated structure traversing the right acetabulum through the inferomedial right iliac bone and extending into the right hemipelvis. 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 Advise nonemergent follow-up with orthopedic surgery. No acute findings to correlate to patient's left lower abdominal symptoms. This document has been electronically signed by: Aaron Wasserman MD on 01/05/2025 03:23:25 Prescription Management I considered prescription management with: Pain Medication Chronic Conditions Patient?s care impacted by: Hypertension Discharge Plan Discharge Clinical Impression: Musculoskeletal strain, Abnormal CT of the abdomen Strain of lumbar region Qualifiers: Encounter type: initial encounter Qualified Code(s): S39.012A - Strain of muscle, fascia and tendon of lower back, initial encounter Patient Disposition: Home, Self-Care Instructions: Muscle Strain (ED), Low Back Strain (ED), P.R.I.C.E. Treatment (ED) Additional Instructions: [place] por elegir el [facility]cias del [facility] M?dico [facility] para bhatia atenci?n m?dica hoy. Bhatia evaluaci?n de laboratorio, an?lisis de orina y radiograf?a de hoy son tranquilizadores. Bhatia tomograf?a computarizada no muestra anomal?as agudas que expliquen bhatia dolor en el lado nneka aqu? en urgencias. En jo momento, no hay indicaci?n de ingreso hospitalario ni de observaci?n continua en urgencias, y es seguro darle de ashley. Bhatia dolor podr?a deberse a stephon distensi?n lumbar. Debe sami dosis alternas (escalonadas) de ibuprofeno 600 mg y Tylenol 1000 mg cada 4 horas, seg?n sea necesario, para cualquier dolor adicional. Por favor, deje reposar la binta lesionada y aplique hielo criss 20 minutos cada hora. Mant?ngase em hidratado y descanse lo suficiente. [place] parte de bhatia plan de atenci?n, tambi?n le barros recetado un relajante muscular llamado Flexeril. Mayo jo medicamento solo para dolor intenso o espasmo que no se genoveva con ibuprofeno o Tylenol. Los relajantes musculares pueden conllevar un alto riesgo de adicci?n y abuso involuntario. Mayo oj medicamento solo seg?n las indicaciones y solo si es absolutamente necesario. Jo medicamento puede causar somnolencia; no se le permite conducir, operar maquinaria pesada ni ser el ?maki cuidador de ni?os mientras lo est? tomando. Puede continuar usando parches de lidoca?na. Bhatia tomograf?a computarizada mostr? un hallazgo importante, aunque no urgente, de stephon lesi?n s?teetee en la cadera derecha que se extend?a a la pelvis derecha. El radi?logo considera que podr?a tratarse de stephon acumulaci?n cr?malinda de l?quido secundaria a bhatia reemplazo de cadera. [place] no requiere ninguna intervenci?n de emergencia ni ingreso hospitalario. Sin embargo, es sumamente importante que consulte con bhatia cirujano ortop?dico para revisar las im?genes y determinar si es necesaria stephon intervenci?n ambulatoria. Por favor, tambi?n consulte con bhatia m?dico de cabecera para stephon reevaluaci?n, un manejo adicional de bart s?ntomas y atenci?n preventiva continua. Si no tiene un m?dico de cabecera, llame a [facility] al [phone] para asignarle kendrick nuevo. Mientras espera para asignarle un nuevo m?dico de cabecera, puede llamar a nuestra Cl?malinda de [facility]?n [facility] al [phone] para necesidades que no valente de emergencia. Por favor, regrese al servicio de urgencias si presenta un cambio repentino o grave en bart s?ntomas, fiebre superior a 38 ?C que no mejora con Tylenol o ibuprofeno, v?mitos recurrentes o cualquier otro s?ntoma o inquietud nuevo o que empeore. Thank you for choosing [facility] Emergency Department for your care today. Your laboratory evaluation, urinalysis, and x-ray today are all reassuring. Your CT shows no acute abnormalities that would explain your left-sided pain here in the ED. At this time there is no indication for admission to the hospital or continued ED observation, and it is safe to discharge you home. Your pain may be due to a strain of your low back. You should take alternating (staggered) doses of ibuprofen 600mg and Tylenol 1000mg every 4 hours as needed for any additional pain. Please rest the injured area, and apply ice for 20 minutes every hour. Please stay well hydrated and get plenty of rest. As a part of your care plan, you have also been prescribed a muscle relaxer called Flexeril. Please take this medication only for severe pain or spasm that is not relieved by ibuprofen and/or Tylenol. Muscle relaxer medications can carry high risk of unintentional addiction and abuse. Take this medication only as directed and only if absolutely necessary. This medicine can make you drowsy, you are not allowed to drive, operate heavy machinery, or be the sole care provider for children while taking this medication. You may continue using lidocaine patches. YOUR CT DID SHOW A NONEMERGENT BUT IMPORTANT FINDING OF A SOLID LESION IN YOUR RIGHT HIP EXTENDING INTO YOUR RIGHT PELVIS. THE RADIOLOGIST FEELS THIS MAY BE A CHRONIC FLUID COLLECTION SECONDARY TO YOUR HIP REPLACEMENT. THIS DOES NOT REQUIRE ANY EMERGENT INTERVENTION OR HOSPITAL ADMISSION, HOWEVER IS EXTREMELY IMPORTANT THAT YOU FOLLOW UP WITH YOUR ORTHOPEDIC SURGEON TO REVIEW THE IMAGES AND DISCUSS IF THERE IS ANY NEED FOR OUTPATIENT INTERVENTION. Please also follow up with your primary care physician for re-evaluation, additional management of your symptoms, and continued preventative care. If you do not have a primary care physician, please call the [facility] at [phone] to establish a new primary care physician. While waiting to establish your new primary care physician, you can call our Walk[facility] at [phone] for non-emergency needs. Please return to the emergency department if you develop a severe or sudden change in your symptoms, a fever over 100.4 that does not improve with Tylenol or Ibuprofen, recurrent vomiting, or any other new or worsening symptoms or concerns. Prescriptions: New cyclobenzaprine 10 mg tablet 10 mg PO TID PRN (Reason: muscle spasm) Qty: 14 0RF No Action losartan 50 mg tablet 50 mg PO DAILY Qty: 30 0RF rosuvastatin 10 mg tablet 10 mg PO BEDTIME cholecalciferol (vitamin D3) [Vitamin D3] 50 mcg (2,000 unit) capsule 50 mcg PO DAILY sildenafil [Viagra] 100 mg tablet 50 - 100 mg PO DAILY PRN (Reason: Erectile Dysfunction) pantoprazole 40 mg tablet,delayed release (DR/EC) 40 mg PO DAILY loratadine 10 mg tablet 10 mg PO DAILY PRN (Reason: Allergy Symptoms) levothyroxine 125 mcg tablet 125 mcg PO Q2D Rx Instructions: Every other Day levothyroxine 112 mcg tablet 112 mcg PO Q2D Rx Instructions: Every other Day amlodipine 2.5 mg tablet 2.5 mg PO DAILY Referrals: Enid Diaz FNP [Primary Care Provider, Family Practice] Clinical Impression: Strain of lumbar region; Abnormal CT of the abdomen Print Language: Bangladeshi
[2025-01-04 20:43] VITALS: BP 194/95; PULSE 65; RESP 18; TEMP 36.9; O2SAT 97; BMI 31.0
[2025-01-04 20:56] LABS: MANUAL DIFF FLAG NO
[2025-01-04 20:58] LABS: Hematocrit 44.4 % (42.0-52.0); Hemoglobin 15.4 g/dl (14.0-18.0); Imm Gran Abs Auto 0.04 X10*3/uL (0.00-0.03); Imm Gran Pct Auto 0.3 % (0.0-0.4); Lymphocytes Absolute Auto 4.0 X10*3/uL (1.2-4.9); Mean Corpuscular HGB Conc 34.7 g/dl (31.0-36.0); Mean Corpuscular Hemoglobin 34.6 pg (27.0-33.0); Mean Corpuscular Volume 99.8 fL (80.0-98.0); NRBC Abs Auto 0.000 X10*3/uL (0.0-0.012); NRBC Pct Auto 0.0 /100WBC (0.0-0.2); Platelet Count 198 X10*3/uL (160-400); Red Blood Count 4.45 X10*6/uL (4.60-5.80); White Blood Count 11.8 X10*3/uL (4.8-10.8)
[2025-01-04 21:10] LABS: Alanine Aminotransferase 31 U/L (0-40); Albumin Level 4.4 g/dL (3.5-5.0); Alkaline Phosphatase 66 U/L (39-117); Anion Gap 15 (12-20); Aspartate Amino Transferase 27 U/L (5-37); Blood Urea Nitrogen 13 mg/dL (9-16); Calcium 9.4 mg/dL (8.4-10.2); Carbon Dioxide 25 mmol/L (22-29); Chloride 108 mmol/L (96-108); Creatinine Clr Calc Pharmacy 60.3; Estimated Glomerular Filt Rate > 60; Magnesium 2.0 mg/dL (1.6-2.6); Potassium 4.1 mmol/L (3.3-5.1); Sodium 144 mmol/L (135-145); Total Protein 7.5 g/dL (6.5-8.0)
[2025-01-04 23:57] VITALS: BP 165/87; PULSE 55; RESP 18; O2SAT 96
[2025-01-05 01:14] LABS: Appearance Urine Clear; Glucose Urine UA Negative (Negative); PH 5.5 (5.0-9.0); Specific Gravity - Urine 1.015 (1.005-1.025); UMIC TRIGGER UACC YES
[2025-01-05 02:07] VITALS: BP 158/84; PULSE 55; TEMP 36.7; O2SAT 95
[2025-01-05] MEDS: iohexoL 350 MG/ML 100 ML INFUS..BTL 85 ML IV (02:35)
[2025-01-05 04:36] VITALS: BP 158/84; PULSE 55; RESP 16; TEMP 36.7; O2SAT 95
== END 2025-01-05 04:37 | disposition home or self-care (01) ==
PROVIDERS: Physician Assistant; Emergency Provider Emergency Medicine; PCP Registered Nurse
DX: S39.012A Strain of muscle, fascia and tendon of lower back, initial encounter (principal); R93.5 Abnormal findings on diagnostic imaging of other abdominal regions, including retroperitoneum; M54.9 Dorsalgia, unspecified; X58.XXXA Exposure to other specified factors, initial encounter; Y93.9 Activity, unspecified; Y92.9 Unspecified place or not applicable; Y99.9 Unspecified external cause status
CPT/HCPCS: 36415; 73502; 74177; 80048; 80076; 81001; 83735; 85025; 96361; 96374; 99284; 99285; J1885; Q9967

== ENCOUNTER → 2025-01-04 20:44 | Outpatient (BNV) | payer OTHER, SELFPAY | PROVIDERS: PCP Registered Nurse; Visit Provider Radiology Neuroradiology | DX: M25.552 Pain in left hip (principal) | CPT/HCPCS: 73502 ==

== ENCOUNTER → 2025-01-05 01:22 | Outpatient (BNV) | payer OTHER, SELFPAY | PROVIDERS: Emergency Provider Emergency Medicine; PCP Registered Nurse; Visit Provider Student in an Organized Health Care Education/Training Program | DX: R19.09 Other intra-abdominal and pelvic swelling, mass and lump (principal) | CPT/HCPCS: 74177 ==

== ENCOUNTER 2025-03-04 10:34 | Outpatient (AMB) | payer OTHER, SELFPAY ==
--- NOTE | 2025-03-04 10:44 | A.OFFVIS_ITS ---
Vital Signs 03/04/25 11:03 Height 5 ft 6 in Weight 191 lb BMI 30.8 Intake Visit Reasons: OV - B/L Hip Pain - Hx of B/L Hip replacements Intake Note: Jose Angel is a 70 year old male who presents today for a follow up of bilateral hip pain. At his last visit on 06/12/22, he was referred to physical therapy and was to follow up in [address] Blum to discuss next steps of treatment. Today patient reports a recent CT scan was obtained due to lower back pain. States he is using cyclobenzaprine for his pain that provides him with relief. His pain is located mostly in his lower back on both sides, as well as the lateral side. His left side is the worse. He has tried and failed physical therapy. Hx of bilateral hip replacements in 1995. Fishing Tackle Repairer Required: Yes Fishing Tackle Repairer Services: Fishing Tackle Repairer Present Fishing Tackle Repairer Name: Emeka ID#[id number] Allergies ibuprofen (From MOTRIN) Allergy (Intermediate, Verified 03/04/25 11:04) GI PROBLEM, GI upset dicloxacillin Allergy (Unknown, Verified 03/04/25 11:04) Unknown Penicillins (PENICILLINS) Allergy (Unknown, Verified 03/04/25 11:04) UNKNOWN Medication List - Last Reconciled 03/04/25 by Curtis Velez PA-C amlodipine 2.5 mg PO DAILY cholecalciferol (vitamin D3) (Vitamin D3) 50 mcg PO DAILY cyclobenzaprine 10 mg PO TID PRN levothyroxine 112 mcg PO Q2D levothyroxine 125 mcg PO Q2D loratadine 10 mg PO DAILY PRN losartan 50 mg PO DAILY pantoprazole 40 mg PO DAILY rosuvastatin 10 mg PO BEDTIME sildenafil (Viagra) 50 - 100 mg PO DAILY PRN HPI HPI OV - B/L Hip Pain - Hx of B/L Hip replacements: Details: 70 yo male presents to the office today for bilat hip pain, left >right. I last saw him in 2022 and referred him to PT which he states was somewhat helpful. He has bil[place] RUIZ [place] [address] Hurtado. He states when he is sitting he has pain along the left side the hip and he has pain when he gets up to stand. He denies pain that extends into the thigh. He states the pain goes into his low back and buttock region. FOR[facility]LY [facility], [facility] Medical History Tubular adenoma of colon GERD (gastroesophageal reflux disease) Kidney disease High cholesterol Hypothyroid Colon abnormality Asthma History of adenomatous polyp of colon Hypertension Surgical History Hx of colonoscopy (~04/16/24) H/O colonoscopy H/O: hemorrhoidectomy Status post total hip replacement, bilateral Social History Are you a primary career law clerk to a significant other at home: No Do you presently have visiting nurse or other home services: No Alcohol intake: current Alcohol intake frequency: 3 or more drinks per day Alcohol type: beer Patient Tobacco Use Status: Never used Tobacco Substance Use Type: Marijuana Current occupational status: disabled Review of Systems Const All systems reviewed & are unremarkable except as noted in HPI and below Physical Exam Vital Signs: BMI result Body Mass Index 30.8 Const General: cooperative and no acute distress Orientation/consciousness: patient oriented x3 Resp Effort & Inspection: normal respiratory effort and able to speak in complete sentences Cardio Peripheral pulses: Peripheral pulses 2+ throughout Neuro General: patient oriented x3 Extrem Other: full ROM bilat hip Pain with ABduction bilaterally TTP left great troch Results Reviewed Results Reviewed: XR hip BI w PEL1V 03/04/25 IMPRESSION: Status post bilateral total hip arthroplasty. Lucency about the right acetabular component without change. CT abd/pelvis 01/05/25 IMPRESSION: Solid density encapsulated structure traversing the right acetabulum through the inferomedial right iliac bone and extending into the right hemipelvis. 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 Advise nonemergent follow-up with orthopedic surgery. No acute findings to correlate to patient's left lower abdominal symptoms. Assessment & Plan Assessment & Plan (1) Hx of bilateral hip replacements: Code(s): Z96.643 - Presence of artificial hip joint, bilateral Category: Surgical Plan: In the setting of the implants are 29 years old and he is experiencing difficulty in the left and also had a CT scan showing possible seroma I will order a bone scan to further evaluate the integrity of his prosthesis. Patient is content with this plan and I will submit the order and I will contact him once the scan is complete to discuss the next step. Orders: Orders XR hip BI w PEL1V Today M25.559 - Pain in unspecified hip NM bone scan whole body Today M25.551 - Pain in right hip, M25.552 - Pain in left hip, Z96.643 - Presence of artificial hip joint, bilateral Coding Level of Care Code Est Pt Level 3 (69673) Complex EM visit Add On G2211 Diagnoses Hx of bilateral hip replacements Z96.643
[2025-03-04 11:03] VITALS: BMI 30.8
--- OUTSIDE RECORDS SUMMARY | 2025-03-04 11:30 | XMS_ITS | Encounter Summary ---
Author Organization [employer] Address [address] [facility] [address] [place] [address] Care Team Providers Care Type Casting Machine Operator Name Role Phone Enid Diaz Primary Care Provider [phone] Reason for Visit * Reason Comments Med Refill Encounter Details Date Type Department Care Team ([facility] st Contact Info) Description 04/29/2023 Refill [facility] [address] [place] [address] Enid Diaz FNP [address] [place] [address] Hypothyroidism, unspecified type Social History Tobacco Use [...] Please ask him to come to the [facility] to complete blood work at his convenience, thank you! documented in this encounter Plan of Treatment Upcoming Encounters Date Type Department Care Team (Late st Contact Info) Description 08/18/2025 1:00 PM EDT Office Visit [facility] ADULT DENTAL [address] [place] [address] Karlene Hancock documented as of this encounter Procedures Procedure Name Priority Date/Time Associated Diagnosis Comments TSH W/REFLEX TO FT4 Routine 05/01/2023 9 :25 AM EST Hypothyroidism, unspecified type documented in this encounter Results * TSH W/Reflex to FT4 (05/01/2023 9:25 AM EST) TSH reflex Free T4 0.62 0.32 - 4.0 uIU/mL [facility] Blood 05/01/2023 9:25 AM EST 05/01/2023 11:13 AM EST us En[facility] BLOOD ORDERABLES Final Res ult [facility] [address] [place] [address] [phone] documented in this encounter Visit Diagnoses Diagnosis Hypothyroidism, unspecified type documented in this encounter Additional Health Concerns Assessment Noted Time PHQ-9 Depression Total Score: 0 05/21/20 22 3:26 PM EST documented as of this encounter Care Teams Type Casting Machine Operator Relationship Specialty Start Date End Date Enid Diaz FNP [address] [place] [address] PCP - General Family Medicine 01/18/22 documented as of this encounter
--- OUTSIDE RECORDS SUMMARY | 2025-03-04 11:30 | XMS_ITS | Encounter Summary ---
Author Organization [employer] Address [address] [facility] [address] [place] [address] Care Team Providers Care Public Relations Writer Name Role Phone Enid Diaz MARINE BIOLOGIST Primary Care Provider [phone] Encounter Details Date Type Department Care Team ([facility] st Contact Info) Description 05/05/2024 Orders Only [facility] MED [facility] PEDS [address] [place], [place] [id number] Provider, MD Harvey Social History Tobacco Use [...] Description 08/18/2025 1:00 PM EDT Office Visit [facility] ADULT DENTAL [address] [place] [address] Karlene Hancock documented as of this encounter [...] documented as of this encounter Care Teams Public Relations Writer Relationship Specialty Start Date End Date Enid Diaz FNP [address] [place] [address] PCP - General Family Medicine 01/18/22 documented as of this encounter
--- OUTSIDE RECORDS SUMMARY | 2025-03-04 11:30 | XMS_ITS | Encounter Summary ---
Author Organization [employer] [facility] Address [address] [place] [address] [address] [place] [address] Care Team Providers Care Dry Cleaner Name Role Phone Enid Diaz Primary Care Provider Encounter Details Date Type Department Care Team (Latest Contact Info) Description 12/10/2018 Abstract [facility] CONVERSIONS Dental, Provider, DDS Social History [...] Description 08/18/2025 1:00 PM EDT Office Visit [facility] ADULT DENTAL [address] [place] [address] Karlene Hancock documented as of this encounter Visit Diagnoses Not on filedocumented in this encounter Care Teams Dry Cleaner Relationship Specialty Start Date End Date Enid Diaz FNP [address] [place] [address] PCP - General Family Medicine 01/18/22 documented as of this encounter
--- OUTSIDE RECORDS SUMMARY | 2025-03-04 11:30 | XMS_ITS | Encounter Summary ---
Author Organization [employer] Address [address] [facility] [address] [place] [address] Care Team Providers Care Spanish Moss Picker Name Role Phone Enid Diaz DIGITAL ASSET COORDINATOR Primary Care Provider [phone] Encounter Details Date Type Department Care Team (Late st Contact Info) Description 08/30/2022 Orders Only [facility] MED & PEDS [address] [place] [address] Winnie Harris LPN Social History Tobacco Use [...] PM EDT Office Visit [facility] ADULT DENTAL [address] [place] [address] Karlene Hancock documented as of this encounter Visit Diagnoses Not on filedocumented in this encounter Additional Health Concerns Assessment Noted Time PHQ-9 Depression Total Score: 0 05/21/20 3:26 PM EST documented as of this encounter Care Teams Spanish Moss Picker Relationship Specialty Start Date End Date Enid Diaz FNP [address] [place] [id number] PCP - General Family Medicine 01/18/22 documented as of this encounter
--- OUTSIDE RECORDS SUMMARY | 2025-03-04 11:30 | XMS_ITS | Encounter Summary ---
Author Organization [employer] Address [address] [facility] [address] [place] [address] Care Team Providers Care Produce Clerk Name Role Phone Enid Diaz Primary Care Provider [phone] Reason for Visit * Reason Comments Med Refill Encounter Details Date Type Department Care Team ([facility] st Contact Info) Description 02/04/2025 Refill [facility] MED[facility]INE [address] [place] [address] Enid Diaz FNP [address] [place] [address] Muscle spasm Social History Tobacco Use Types Packs/Day Years Used Date Smoking Tobacco: Never Passive Smoke Exposure: Never Smokeless Tobacco: Never Comments:20 years ago. [...] Date Recorded Patient Health Questionnaire-9 Score 0 01/12/2025 Patient Health Questionnaire-9 Score 0 01/12/2025 Last PHQ-9: Questionnaire Data Not on file 0 01/12/2025 Housing Stability Answer Date Recorded What is your housing situation today? I have sudarshan devlin 01/12/[address] you li ve. Do you have problems with any of the following? None of the above 01/12/2025 Food Insecurity Answer Date Recorded Within the past 12 months, y ou worried that your food would run out before you got money to buy more: Never True 01/12/2025 Within the past 12 months,th e food you bought just didn't last and you didn't have enough money to get more: Never True Transportation Answer Date Recorded In the past 12 months, has l ack of transportation kept you from medical appts, meetings, work or from getting things needed for daily living? No 01/12/2025 Utilities Answer Date Recorded In the past 12 months, has t he electric, gas, oil or water company threatened to shut off services in your home? No 01/12/2025 Depression Answer Date Recorded Patient Health Questionnaire-2 Score 0 01/12/2025 Internet Access Answer Date Recorded Internet Access Q1 No 01/12/2025 Internet Access Q2 I do not want or need it 12/31 Sex and Gender Information Value Date Recorded Sex Assigned at Male 04/01/2022 10:14 AM EDT Legal Sex Male 10:14 AM EDT Gender Identity Male 04/01/2022 10:14 AM EDT Sexual Orientation Straight 04/01/2022 10 :14 AM EDT documented as of this encounter Plan of Treatment Upcoming Encounters Date Type Department Care Team (Late st Contact Info) Description 08/18/2025 1:00 PM EDT Office Visit [facility] ADULT DENTAL [address] [place] [address] Karlene Hancock documented as of this encounter Visit Diagnoses Diagnosis Muscle spasm Spasm of muscle documented in this encounter Additional Health Concerns Assessment Noted Time PHQ-9 Depression Total Score: 0 01/13/20 25 9:41 AM EDT documented as of this encounter Care Teams Produce Clerk Relationship Specialty Start Date End Date Enid Diaz FNP [address] [place] [address] PCP - General Family Medicine 01/18/22 documented as of this encounter
--- OUTSIDE RECORDS SUMMARY | 2025-03-04 11:30 | XMS_ITS | Encounter Summary ---
Author Organization [employer] Address [address] [facility] [address] [place] [address] Care Team Providers Care Quilt Sewer Name Role Phone Enid Diaz Primary Care Provider [phone] Reason for Visit * Reason Comments Med Refill Encounter Details Date Type Department Care Team ([facility] st Contact Info) Description 12/03/2023 Refill [facility] MED[facility] [address] [place] [address] Enid Diaz FNP [address] [place] [address] Erectile dysfunction, unspecified erectile dysfunction type Social [...] Description 08/18/2025 1:00 PM EDT Office Visit [facility] ADULT DENTAL [address] [place] [address] Karlene Hancock documented as of this encounter Visit Diagnoses Diagnosis Erectile dysfunction, unspecified erectile dysfunction type documented in this encounter Additional Health Concerns Assessment Noted Time PHQ-9 Depression Total Score: 2 09/17/19 24 10:52 AM EDT documented as of this encounter Care Teams Quilt Sewer Relationship Specialty Start Date End Date Enid Diaz FNP [address] [place] [address] PCP - General Family Medicine 01/18/22 documented as of this encounter
--- OUTSIDE RECORDS SUMMARY | 2025-03-04 11:30 | XMS_ITS | Clinical Summary ---
Author Organization [facility] Address [address] [place] [address] Phone Care Team Providers Care Medication Tech Name Role Phone Arlene Wong NP Primary Care Provider [phone] Allergies Active Allergy Reactions Criticality Noted Date [...] Cancer Screening: Sigmoidoscopy 2002 Influenza Vaccine (#1) 2025 Hepatitis B Vaccine Aged Out No longe r eligible based on patient's age to complete this topic Insurance [facility] [place] [id number] [facility] [place] [id number] Care Teams Medication Tech Relationship Specialty Start Date End Date Arlene Wong NP PCP - General 06/12/20
--- OUTSIDE RECORDS SUMMARY | 2025-03-04 11:30 | XMS_ITS | Clinical Summary ---
Author Organization [employer] Address [address] [place] [address] [address] [place] [address] Care Team Providers Care Validation Manager Name Role Phone Enid Diaz BLOWER MECH[employer]IC Primary Care Provider [phone] Allergies Active Allergy Reactions Criticality Noted Date Comments Ibuprofen 09/11/2015 Other reaction(s): upset stomach Penicillin G 05/21/2022 Medications clotrimazole (Lotrimin) 1 % creamIndications:T inea pedis of both feet Apply topically between affected toes twice daily for 28 days 30 g 2 08/24/19 23 Active traMADol (Ultram) 50 MG tabletIndications: History of bilateral hip replacements Take 1 tablet (50 mg) by mouth if needed each day for severe pain. 10 tablet 1 04/09/20 23 Active pantoprazole (ProtoNix) 40 MG EC tablet TAKE 1 TABLET BY MOUTH EVERY DAY 90 tablet 1 04/17/20 23 Active lidocaine (Lidoderm) 5 % patch Apply 1 patch topically Once per day. Remove & discard patch within 12 hours or as directed by MD. 30 patch 2 09/21/19 24 Active lidocaine-prilocai ne (Emla) 2.5-2.5 % cream Apply topically if needed in the morning, at noon, and at bedtime for mild pain. 30 g 2 09/29/19 24 Active amLODIPine (Norvasc) 2.5 MG tabletIndications: Hypertension, unspecified type TAKE 1 TABLET BY MOUTH EVERY MORNING 90 tablet 3 04/27/20 24 Active loratadine (Claritin) 10 MG tablet TAKE 1 TABLET BY MOUTH EVERY DAY NEEDED 90 tablet 3 05/20/20 24 Active albuterol 108 (90 Base) MCG/ACT inhalerIndications :Mild intermittent asthma without complication Inhale 2 puffs Every 4-6 hours as needed for wheezing or shortness of breath. 18 g 2 07/07/19 25 026 Active cholecalciferol (D3 Super Strength) 50 MCG (1999 UT) capsule TAKE 1 CAPSULE BY MOUTH EVERY DAY IN THE MORNING 90 capsule 1 09/07/19 25 Active levothyroxine (Synthroid, Levoxyl) 112 MCG tabletIndications: Acquired hypothyroidism TAKE 1 TABLET BY MOUTH FRIDAY, FRIDAY, FRIDAY, FRIDAY BEFORE BREAKFAST. 48 tablet 3 09/16/19 25 Active rosuvastatin (Crestor) 10 MG tablet TAKE 1 TABLET BY MOUTH EVERY DAY AT BEDTIME 90 tablet 3 10/14/19 25 Active levothyroxine (Synthroid, Levoxyl) 125 MCG tablet TAKE 1 TABLET BY MOUTH ON FRIDAY, FRIDAY AND FRIDAY BEFORE BREAKFAST 36 tablet 3 10/30/19 25 Active sildenafil (Viagra) 100 MG tabletIndications: Erectile dysfunction, unspecified erectile dysfunction type TAKE 1/2 TO 1 TABLET BY MOUTH ONCE DAILY NEEDED 9 tablet 5 11/23/19 25 Active cyclobenzaprine (Flexeril) 10 MG tabletIndications: Muscle spasm Take 1 tablet (10 mg) by mouth if needed in the morning, at noon, and at bedtime for muscle spasms for up to 10 days. 30 tablet 1 01/13/20 25 Active Additional Information Patient not taking.Reported on 01/24/2025 Active Problems Problem Noted Date Diagnosed Date Tubular adenoma 07/08/2024 Overview (07/08/2024): History of tubular adenoma of colon Followed by [facility] general surgery-Dr. Bowling Colonoscopy April 2024. Removed [...] maintenance 04/09/2023 Overview (07/08/2024): Colonoscopy: 04/16/24 at [facility] (Dr. Bowling). Multiple tubular adenomas. Next due: Apr 2025. Acute idiopathic gout of left hand 03/03/2023 Assessment & Plan (03/03/2023 5:22 PM EDT): On 2nd digit. Labs showed significant inflammation, but other inflammatory etiologies are mostly ro'd. Counseled re low purine diet, he's quit alcohol for some time now. Tramadol prn pain. FU w PCP History of bilateral hip replacements 10/06/2022 Overview (12/04/2022): Status post right total hip 10/09/1995 and total left hip 05/24/[address] Hurtado XR 03/24/2019 show bilateral hip prosthesis in good position Continues with intermittent pain in bilateral hips, previously tx with tramadol with noted improvement Avoid NSAIDs due to hx CKD APAP does not always provide significant relief Assessment & Plan (01/13/2025 7:55 AM EDT): - CT Abd/pelvis during ED visit 12/2024 demonstrated solid density encapsulated structure traversing the right acetabulum through the inferomedial right iliac bone and extending into the right hemipelvis. 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 - Referral to [facility] Ortho for further eval placed on 01/12/25. Assessment & Plan (04/09/2023 5:15 PM EST): -May use tramadol sparingly (rx 10-15 tablets/month). Reviewed med safety and SE. -Consider referral to [facility] program if need for tramadol persists Assessment & Plan (12/04/2022 6:07 PM EDT): -Tramadol 50mg daily PRN sent to pharmacy - shared decision making to use as infrequently as possible, while still maintaining ability to function in ADLs. (plan for 15 tablets total/month). If benefits > risks and pt continues to request refill of med, will consider [facility] contract -Reviewed med safety and SE. Has [...] to request refill of med, will consider [facility] contract -Reviewed med safety and SE. Satyaan sent to pharmacy. Hypertension 05/21/2022 Assessment & [...] Assessment & Plan (04/09/2023 5:14 PM EST): Well controlled per home readings Cont amlodipine 2.5mg daily Assessment & Plan (03/03/2023 5:20 PM EDT): Uncontrolled, likely related to pain No change in meds, treat pain and fu w PCP Stage 3 chronic kidney disease (CMS/HCC) 021 Assessment & Plan (07/08/2024 10:44 AM EST): Continue following with nephrology- Dr. Griffith at [facility]. H/o mild hypercalcemia - following calcium and PTH Repeat BMP and microalbumin Assessment & Plan (12/17/2023 10:49 AM EDT): Continue following with nephrology- Dr. Griffith at [facility]. H/o mild hypercalcemia - following with repeat calcium and PTH on routine basis Assessment & Plan (09/21/2023 8:37 PM EDT): Continue following with nephrology- Dr. Griffith at [facility]. Per consult note Jul 2023: h/o mild hypercalcemia - following with repeat calcium and PTH Assessment & Plan (08/06/2023 4:47 PM EST): Continue following with nephrology- Dr. Griffith at [facility] Assessment & Plan (12/04/2022 6:04 [...] Encounters Date Type Department Care Team Description 02/04/2025 Refill [facility] [address] [place] [address] Enid Diaz FNP Muscle spasm 01/24/2025 11:00 AM EDT Office Visit [facility] [address] [place] [phone] Karlene Hancock Dental calculus (Primary Dx); Dental staining 01/19/2025 Telephone [facility] [address] [place] [address] Karissa Karlene 01/12/2025 9:45 AM EDT Office Visit [facility] [address] [place] [phone] Enid Diaz FNP Abnormal finding on imaging (Primary Dx); History of bilateral hip replacements; Hematuria, unspecified type; Muscle spasm 01/12/2025 Travel 01/11/2025 Telephone [facility] [address] [place] [phone] Enid Diaz FNP CHART PREP 01/05/2025 Orders Only GENERIC EXTERNAL DATA DEPARTMENT Provider, Generic External Data 01/04/2025 Orders Only GENERIC EXTERNAL DATA DEPARTMENT Provider, Generic External Data from Last 3 Months Immunizations Immunization Administration Dates Next Due Influenza High-dose Quadriva [...] Passive Smoke Exposure: Never Smokeless Tobacco: Never Tobacco Cessation:Counseling Given: [...] Sign Reading Time Taken Comments Blood Pressure 146/86 01/24/2025 11:04 AM EDT Pulse 75 01/12/2025 9:44 AM EDT Temperature 36.6 C (97.8 F) 01/12/2025 9:44 AM EDT Respiratory Rate 20 01/12/2025 9:44 AM EDT Oxygen Saturation 99% 01/12/2025 9:44 AM EDT Inhaled Oxygen Concentration - - Weight 87 kg (191 lb 12.8 oz) 01/12/2025 9:44 AM EDT Height 168.9 cm (5' 6.5 ) 01/12/2025 9:44 AM EDT Body Mass Index 30.49 01/12/2025 9:44 AM EDT Plan of Treatment Upcoming Encounters Date Type Department Care Team (Late st Contact Info) Description 08/18/2025 1:00 PM EDT Office Visit [facility] [address] [place] [phone] Karlene Hancock Health Maintenance Due Date Last Done Comments CT Colonography 1955 FIT DNA/Cologuard 1955 FIT 1955 FOBT 1955 Sigmoidoscopy 1955 RSV Patients and Patients Aged 60 years or older (1 - Risk 60-74 years 1-dose series) 2013 COVID-19 Vaccine ( season) 2025 07/07/2024, 08/06/2023, 12/04/2022, Additional history exists Influenza Vaccine (#1) 2025 , 04/09/2023, 04/23/2022, Additional history exists Colonoscopy 04/16/2025 04/16/2024 Colorectal Cancer Screening 04/16/2025 Dental Oral Exam 07/28/2025 01/24/2025, , 01/13/2024, Additional history exists Dental Prophylaxis 07/28/2025 01/24/2025, 0 07/15/2024, 01/13/2024, Additional history exists Alcohol/Substance Use Screening 01/12/2026 01/12/2025 Depression Screening 01/12/2026 01/12/2025, 01/13/20 SDOH Screening 01/12/2026 01/12/2025 Tobacco Screening 01/24/2026 01/24/2025 Dental X-Ray: Bitewings 01/25/2026 01/25/20, 01/13/2024, 06/12/2023, Additional history exists Dental X-Ray: Full Mouth 06/13/2026 024, 03/23/2013, 04/22/2012 Lipid Panel 10/04/2029 10/04/2024, 08/31, 04/24/2022, Additional history exists DTaP/Tdap/Td Vaccines (3 - Td or Tdap) 12/04/2032 12/04/2022, 09/24/2012, 01/06/2008, Additional history exists Pneumococcal Vaccine: 50+ Years Completed 03/24/2020, 09/24/2018, 03/07/2009 Zoster Vaccines Completed 10/24/2022, 08/01, 07/18/2016 Hepatitis C Screening Completed 10/04/2024 , 10/01/2022, 04/24/2022 HIB Vaccines Aged Out No longer eligi [...] patient's age to complete this topic Meningococcal B Vaccine Aged Out No l onger eligible based on patient's age to complete [...] PERIODIC ORAL EVALUATION - ESTABLISHED PATIENT Routine 01/24/2025 11:00 AM EDT ORAL HYGIENE INSTRUCTIONS Routine 01/24/2025 11:00 AM EDT Dental calculus Dental staining CASE PRESENTATION, DETAILED AND EXTENSIVE TREATMENT PLANNING Routine 01/24/2025 11:00 AM EDT BITEWINGS - 4 RADIOGRAPHIC IMAGES Routine 01/24/2025 11:00 AM EDT Dental calculus Dental staining PROPHYLAXIS - ADULT Routine 01/24/2025 1 1:00 AM EDT Dental calculus Dental staining CT ABDOMEN PELVIS W CONTRAST Routine 01/05/2025 3:23 AM EDT URINALYSIS, COMPLETE, WITH REFLEX TO CULTURE Routine 01/05/2025 1:06 AM EDT URINALYSIS WITH REFLEX MICROSCOPIC Routine 01/05/2025 1:06 AM EDT XR HIP LEFT WITH PELVIS 1 VIEW Routine 01/04/2025 9:30 PM EDT MAGNESIUM Routine 01/04/2025 8:52 PM EDT BASIC METABOLIC PANEL Routine 01/04/2025 8:52 PM EDT HEPATIC FUNCTION PANEL Routine 01/04/2025 8:52 PM EDT CBC WITH AUTO DIFFERENTIAL Routine 01/04/2025 8:52 PM EDT HEPATITIS C VIRAL RNA, QUANTITATIVE, REAL-TIME PCR Routine 10/04/2024 9:56 AM EDT Healthcare maintenance LIPID PANEL, STANDARD Routine 10/04/2024 9:56 AM EDT Healthcare maintenance HM COLONOSCOPY Routine 04/16/2024 4:45 PM EST INTRAORAL - COMPLETE SERIES OF RADIOGRAPHIC IMAGES Routine 06/12/2023 3:00 PM EST Dental calculus Periodontal disease Missing teeth, acquired Generalized gingival recession, moderate from Last 3 Months or Most Recently Relevant to Health Maintenance Results * CT Abdomen Pelvis w/ Contrast (01/05/2025 3:23 AM EDT) Anatomical Region Laterality Modality Body, Pelvis, Abdomen Computed T omography 01/05/2025 3:23 AM EDT Narrative 01/05/2025 3:25 AM EDT [place] [address] [address] Scan Report Signed Patient: Jose Angel Haas MR#: [id number] 82 : 1955 Acct:[id number] Age/Sex: 69 / M ADM Date: 01/04/25 Loc: HO.ED Attending Dr: Ordering Physician: Santos Ramos PA-C Date of Service: 01/05/25 Procedure(s): CT abdomen pelvis w IV con Accession Number(s): [id number] cc: Santos Ramos PA-C; Enid Diaz [facility] Report Number: [id number]: Total DLP = 635.00 mGy-cm CLINICAL HISTORY: LLQ Abd pain and tenderness CT abdomen and pelvis with contrast Comparison: DX/SR - XR HIP 1 VIEW RIGHT WITH PELVIS - 06/12/22 15:05 EST Findings: The lung bases are clear. The gallbladder and solid organs are within normal limits. No renal stones. No bowel obstruction, pneumoperitoneum, or pneumatosis. Limited visualization of the pelvis due to streak artifact from bilateral hip arthroplasty. Incomplete visualization of the bilateral distal ureterovesical junction. Partially visualized pelvic contents unremarkable. Normal appendix. No acute fracture. Intact bilateral hip arthroplasties. Arising from the right acetabulum and extending through the inferomedial right iliac bone at the pelvic brim is a solid density encapsulated structure measuring 32 Hounsfield units, extending into the right hemipelvis. IMPRESSION: Solid density encapsulated structure traversing the right acetabulum through the inferomedial right iliac bone and extending into the right hemipelvis. 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 Advise nonemergent follow-up with orthopedic surgery. No acute findings to correlate to patient's left lower abdominal symptoms. This document has been electronically signed by: Aaron Wasserman MD on 01/05/2025 03:23:25 Dictated By: Aaron Wasserman MD Signed By: <Electronically signed by Aaron Wasserman MD in OV> 01/05/25 0324 DD/ 2 TD/TT: 01/05/25 032 [employer]: Procedure Note Barbet[employer]oter, Image - 01/05/[address] [address] [address] Scan Report Signed Patient: Jose Angel HaasMR#: [id number] [birth year] : 1955cct:[id number] Age/Sex: 69 / MADM Date: 01/04/25 Loc: HO.ED Attending Dr: Ordering Physician: Santos Ramos PA-C Date of Service: 01/05/25 Procedure(s): CT abdomen pelvis w IV con Accession Number(s): [id number] cc: Santos Ramos PA-C; Enid Diaz [facility] Report Number: [id number]: Total DLP = 635.00 mGy-cm CLINICAL HISTORY: LLQ Abd pain and tenderness CT abdomen and pelvis with contrast Comparison: DX/SR - XR HIP 1 VIEW RIGHT WITH PELVIS - 06/12/22 15:05 EST Findings: The lung bases are clear. The gallbladder and solid organs are within normal limits. No renal stones. No bowel obstruction, pneumoperitoneum, or pneumatosis. Limited visualization of the pelvis due to streak artifact from bilateral hip arthroplasty. Incomplete visualization of the bilateral distal ureterovesical junction. Partially visualized pelvic contents unremarkable. Normal appendix. No acute fracture. Intact bilateral hip arthroplasties. Arising from the right acetabulum and extending through the inferomedial right iliac bone at the pelvic brim is a solid density encapsulated structure measuring 32 Hounsfield units, extending into the right hemipelvis. IMPRESSION: Solid density encapsulated structure traversing the right acetabulum through the inferomedial right iliac bone and extending into the right hemipelvis. 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 Advise nonemergent follow-up with orthopedic surgery. No acute findings to correlate to patient's left lower abdominal symptoms. This document has been electronically signed by: Aaron Wasserman MD on 01/05/2025 03:23:25 Dictated By: Aaron Wasserman MD Signed By: <Electronically signed by Aaron Wasserman MD in OV> 01/05/25 0324 DD/ 2 TD/TT: 01/05/25322 [employer]: [facility] External Provider IMG CT PROCEDURES Final Result * (ABNORMAL) Urinalysis, Complete, with Reflex to Culture (01/05/2025 1:06 AM EDT) Color Urine Yellow [facility] Appearance Urine Clear [facility] PH 5.5 5.0 - 9.0 [facility] Glucose Urine UA Negative Negative mg/dL [facility] Urine Blood Trace(A) Negative [facility] Specific [place] - Urine 1.015 1.005 - 1.025 [facility] Urine Protein Negative Neg-Trace mg/dL [facility] Urine Ketones Negative Negative mg/dL [facility] Nitrite Urine Negative Negative [facility] Leukocyte Esterase Urine Negative Negative [facility] RBC Urine 0-2 0 - 2 /HPF [facility] Urine WBC 0-5 0 - 5 /HPF [facility] Urine Squamous Epithelial Cell 0-2 0 - 2 /HPF [facility] Urine Bacteria None Seen None Seen [facility] Hyaline Casts, Urine 0-2 0 - 2 /LPF [facility] 01/05/2025 1:06 AM EDT 01/05/2025 1:11 AM EDT Narrative [facility] - 01/05/2025 1:32 AM EDT Urine, Clean Catch Generic External Data Provider LAB URINE ORDERAB LES Final Result [facility] [address] [place] [phone] * (ABNORMAL) Urinalysis w/reflex microscopic (01/05/2025 1:06 AM EDT) Color Urine Yellow [facility] Appearance Urine Clear [facility] PH 5.5 5.0 - 9.0 [facility] Glucose Urine UA Negative Negative mg/dL [facility] Urine Blood Trace(A) Negative [facility] Specific [place] - Urine 1.015 1.005 - 1.025 [facility] Urine Protein Negative Neg-Trace mg/dL [facility] Urine Ketones Negative Negative mg/dL [facility] Nitrite Urine Negative Negative [facility] Leukocyte Esterase Urine Negative Negative [facility] 01/05/2025 1:06 AM EDT 01/05/2025 1:11 AM EDT Narrative [facility] - 01/05/2025 1:29 AM EDT Urine, Clean Catch us Generic External Data Provider LAB URINE ORDERAB LES Final Result Performing Organization Address City/State/[facility] Co de Phone Number [facility] [address] [place] [phone] * XR Hip left with Pelvis 1 view (01/04/2025 9:30 PM EDT) Anatomical Region Laterality Modality Lower Extremities, Hip Bilateral Radiograp hic Imaging 01/04/2025 9:30 PM EDT Narrative 01/04/2025 9:31 PM EDT [place] [address] XRay Report Signed Patient: Jose Angel Haas MR#: [id number] [birth year] : 1955 Acct:[id number] Age/Sex: 69 / M ADM Date: 01/04/25 Loc: HO.ED Attending Dr: Ordering Physician: Lisa Mclain Date of Service: 01/04/25 Procedure(s): XR hip LT w PEL1V Accession Number(s): [id number] cc: Enid Diaz; Lisa Mclain CLINICAL HISTORY: pain 3 view, pelvis and left hip Comparison: X-ray of the pelvis and right hip from 06/12/2022. Findings: Osseous lucencies of the proximal remaining left femur are nonspecific and can be seen with chronic and/or subacute hardware loosening. No acute fracture about left hip arthroplasty hardware at this time. Right hip arthroplasty hardware also redemonstrated in the [id number]. Portions of the pelvis obscured without acute displaced fracture by radiographs. Vascular calcifications are redemonstrated. Degenerative changes of the imaged SI joints of the imaged spine. IMPRESSION: 1. Mild lucencies of the proximal left femur nonspecific. Differential considerations include bone resorption. Consider nonemergent nuclear medicine bone scan of the there is clinical concern for hardware loosening. 2. No acute displaced fracture by radiographs. This document has been electronically signed by: Fernando Little MD on 01/04/2025 21:30:14 Dictated By: Fernando Little MD Signed By: <Electronically signed by Fernando Little MD in OV> 01/04/252130 DD/ 29 TD/TT: 01/04/252129 [employer]: Procedure Note [employer]useinterpreter, Image - 01/04/2025 [place] [address] XRay Report Signed Patient: Arlene Haas#: [id number] 80 : 1955cct:[id number] Age/Sex: 69 / MADM Date: 01/04/25 Loc: HO.ED Attending Dr: Ordering Physician: Lisa Mclain Date of Service: 01/04/25 Procedure(s): XR hip LT w PEL1V Accession Number(s): [id number] cc: Enid DiazP; Lisa Mclain CLINICAL HISTORY: pain 3 view, pelvis and left hip Comparison: X-ray of the pelvis and right hip from 06/12/2022. Findings: Osseous lucencies of the proximal remaining left femur are nonspecific and can be seen with chronic and/or subacute hardware loosening. No acute fracture about left hip arthroplasty hardware at this time. Right hip arthroplasty hardware also redemonstrated in the [id number]. Portions of the pelvis obscured without acute displaced fracture by radiographs. Vascular calcifications are redemonstrated. Degenerative changes of the imaged SI joints of the imaged spine. IMPRESSION: 1. Mild lucencies of the proximal left femur nonspecific. Differential considerations include bone resorption. Consider nonemergent nuclear medicine bone scan of the there is clinical concern for hardware loosening. 2. No acute displaced fracture by radiographs. This document has been electronically signed by: Fernando Little MD on 01/04/2025 21:30:14 Dictated By: Fernando Little MD Signed By: <Electronically signed by Fernando Little MD in OV> 01/04/252130 DD/ 29 TD/TT: 01/04/252129 [employer]: us [facility] External Provider IMG XR PROCEDURES Edited Result - Final * (ABNORMAL) CBC auto differential (01/04/2025 8:52 PM EDT) White Blood Count 11.8(H) 4.8 - 10.8 X10*3/uL [facility] Red Blood Count 4.45(L) 4.60 - 5.80 X10*6/uL [facility] Hemoglobin 15.4 14.0 - 18.0 g/dl [facility] Hematocrit 44.4 42.0 - 52.0 % [facility] Mean Corpuscular Volume 99.8(H) 80.0 - 98.0 fL [facility] Mean Corpuscular Hemoglobin 34.6(H) 27.0 - 33.0 pg [facility] Mean Corpuscular HGB Conc 34.7 31.0 - 36.0 g/dl [facility] Red Cell Distribution Width 12.2 11.0 - 16.0 % [facility] Platelet Count 198 160 - 400 X10*3/uL [facility] Mean Platelet Volume 10.9 9.4 - 12.4 fL [facility] Neutrophils Percent Auto 56.6 45 - 73 % [facility] Imm Gran Pct Auto 0.3 0.0 - 0.4 % [facility] Lymphocytes Percent Auto 33.8 20 - 40 % [facility] Monocytes Percent Auto 6.5 2 - 11 % [facility] Eosinophils Percent Auto 2.0 0 - 4 % [facility] Basophils Percent Auto 0.8 0 - 2 % [facility] NRBC Pct Auto 0.0 0.0 - 0.2 /100WBC [facility] Neutrophils Absolute Auto 6.7 2.0 - 8.3 x10*3/uL [facility] Imm Gran Abs Auto 0.04(H) 0.00 - 0.03 X10*3/uL [facility] Lymphocytes Absolute Auto 4.0 1.2 - 4.9 X10*3/uL [facility] Monocytes Absolute Auto 0.8 0.1 - 1.2 X10*3/uL [facility] Eosinophils Absolute Auto 0.2 0.0 - 0.4 X10*3/uL [facility] Basophils Absolute Auto 0.1 0.0 - 0.2 X10*3/uL [facility] NRBC Abs Auto 0.000 0.0 - 0.012 X10*3/uL [facility] 01/04/2025 8:52 PM EDT 01/04/2025 8:55 PM EDT Generic External Data Provider LAB BLOOD ORDERAB LES Final Result Performing Organization Address [facility] Co de Phone Number [facility] [address] [place] [address] [phone] * Magnesium (01/04/2025 8:52 PM EDT) Magnesium 2.0 1.6 - 2.6 mg/dL [facility] 01/04/2025 8:52 PM EDT 01/04/2025 8:55 PM EDT Generic External Data Provider LAB BLOOD ORDERAB LES Final Result Performing Organization Address [facility] Co de Phone Number [facility] [address] [place] [phone] * Hepatic Function Panel (01/04/2025 8:52 PM EDT) Bilirubin, Total 0.6 0.0 - 1.0 mg/dL [facility] Bilirubin, Direct 0.2 0.0 - 0.5 mg/dL [facility] Aspartate Amino Transferase 27 5 - 37 U/L [facility] Alanine Aminotransferase 31 0 - 40 U/L [facility] Total Protein 7.5 6.5 - 8.0 g/dL [facility] Albumin Level 4.4 3.5 - 5.0 g/dL [facility] Alkaline Phosphatase 66 39 - 117 U/L [facility] 01/04/2025 8:52 PM EDT 01/04/2025 8:55 PM EDT us Generic External Data Provider LAB BLOOD ORDERAB LES Final Result [facility] [address] [place] [phone] * (ABNORMAL) Basic Metabolic Panel (01/04/2025 8:52 PM EDT) Sodium 144 135 - 145 mmol/L [facility] Potassium 4.1 3.3 - 5.1 mmol/L [facility] Chloride 108 96 - 108 mmol/L [facility] Carbon Dioxide 25 22 - 29 mmol/L [facility] Anion Gap 15 12 - 20 [facility] Urea Nitrogen (BUN) 13 9 - 16 mg/dL [facility] Creatinine, Serum 1.16 0.5 - 1.4 mg/dL [facility] Creatinine Clr Calc Pharmacy 60.3 [facility] Comment:eGFR (calculated fro m the MDRD study equation) and eCrCl(calculated from the Cockcroft-Gault equation) are based ondifferent parameters and may not yield comparable results.If eCrCl result is absurd, please check patient'sheight/weight. Estimated Glomerular Filt Rate >60 [facility] Comment:Chronic Kidney Disea se: Estimated GFR < 60 mL/min/1.19r1Nadfvp Kidney Disease: Estimated GFR < 15 mL/min/1.73m2 Glucose 122(H) 60 - 115 mg/dL [facility] Calcium 9.4 8.4 - 10.2 mg/dL [facility] 01/04/2025 8:52 PM EDT 01/04/2025 8:55 PM EDT us Generic External Data Provider LAB BLOOD ORDERAB LES Final Result Performing Organization Address [facility] de Phone Number [facility] [address] [place] [phone] * Hepatitis C Viral RNA, Quantitative, Real-Time PCR (10/04/2024 9:56 AM EDT) Hepatitis C Viral Load <15 NOT DETECTED NOT DETECTED IU/mL [facility] HCV Log PCR <1.18 NOT DETECTED NOT DETECTED Log IU/mL [facility] Comment:For additional infor martha, please refer tohttp://education.Tiempy/faq/OGJ24l8(This link is being provided for informational/educational purposes only.)THIS TEST WAS PERFORMED AT:[employer] [place] [phone] REYNOLDS MD Blood 10/04/2024 9:56 AM EDT 10/04/2024 11:18 AM EDT us Enid Diaz BLOWER MECHANIC LAB BLOOD ORDERABLES Final Res ult Performing Organization Address [facility] de Phone Number [facility] [address] [place] [phone] * Lipid Panel, Standard (10/04/2024 9:56 AM EDT) Triglycerides 78 <150 mg/dL [facility] Comment:Desirable Triglyceri de: less than 150 mg/dLBorderline High Triglyceride 150-199 mg/dLHigh Triglyceride: 200-499 mg/dLVery High Triglyceride: greater than or equal to 5OO mg/dL Cholesterol 140 <200 mg/dL [facility] Comment:Desirable Cholestero l: less than 200 mg/dLBorderline High Cholesterol: 200-239 mg/dLHigh Cholesterol: greater than 239 mg/dL LDL Cholesterol Calculated 53 <100 mg/dL [facility] Comment:Desirable LDL: less than 100 mg/dLNear Optimal/Above Optimal LDL: 110- 129 mg/dLBorderline High LDL: 130-159 mg/dLHigh LDL: 160-189 mg/dLVery High LDL: greater than or equal to 190 mg/dL HDL Cholesterol 72 >40 mg/dL [facility] Comment:Desirable HDL: great er than 40 mg/dL Note: This HDL assay may give artificially low results in patients with liver disease. Blood Venous blood specimen / Unknown 10/04/2024 9:56 AM EDT 10/04/2024 11:19 AM EDT Enid Diaz BLOWER MECHANIC LAB BLOOD ORDERABLES Final Res ult [facility] [address] [place] [phone] * Colonoscopy (04/16/2024 4:45 PM EST) Historical Provider HEALTH MAINTENANCE Final Result from Last 3 Months or Most Recently Relevant to Health Maintenance Insurance [facility] [employer] OPTIONS (O D-SNP) [place] [id number] [facility] Care Teams Validation Manager Relationship Specialty Start Date End Date Enid Diaz FNP [address] [place] [phone] PCP - General Family Medicine 01/18/22
--- OUTSIDE RECORDS SUMMARY | 2025-03-04 11:30 | XMS_ITS | Encounter Summary ---
Author Organization [facility] Address [address] [facility] 7t [place] [address] Care Team Providers Care Ski Patrol Officer Name Role Phone Enid Diaz INSPECTOR FUEL HOSE Primary Care Provider [phone] Reason for Visit * Reason Comments Med Refill Encounter Details Date Type Department Care Team (Late st Contact Info) Description 02/11/2023 Refill [facility] [address] [place] [address] Name, MD Josef [address] [place] [address] Hypertension, unspecified type Social History Tobacco Use [...] Description 08/18/2025 1:00 PM EDT Office Visit [facility]ULT [facility] [address] [place] [address] Karlene Hancock documented as of this encounter Visit Diagnoses Diagnosis Hypertension, unspecified type documented in this encounter Additional Health Concerns Assessment Noted Time PHQ-9 Depression Total Score: 0 05/21/20 3:26 PM EST documented as of this encounter Care Teams Ski Patrol Officer Relationship Specialty Start Date End Date Enid Diaz FNP [address] [place] [address] PCP - General Family Medicine 01/18/22 documented as of this encounter
== END 2025-03-04 11:34 | disposition home or self-care (01) ==
LOC: HO.HOS 10:35
PROVIDERS: PCP Registered Nurse; Visit Provider Physician Assistant
DX: M25.551 Pain in right hip (principal); M25.552 Pain in left hip; Z96.643 Presence of artificial hip joint, bilateral
CPT/HCPCS: 99213; G2211

== ENCOUNTER → 2025-03-04 10:34 | Outpatient (BNVA) | payer OTHER, SELFPAY | PROVIDERS: PCP Registered Nurse; Visit Provider Physician Assistant | DX: M25.552 Pain in left hip (principal); M25.551 Pain in right hip; Z96.643 Presence of artificial hip joint, bilateral | CPT/HCPCS: 99212 ==

== ENCOUNTER → 2025-03-04 10:48 | Outpatient (BNV) | payer OTHER, SELFPAY | PROVIDERS: Visit Provider Radiology Diagnostic Radiology | DX: M25.551 Pain in right hip (principal); M25.552 Pain in left hip; Z96.643 Presence of artificial hip joint, bilateral | CPT/HCPCS: 73521 ==

== ENCOUNTER 2025-03-05 08:27 | Outpatient (REF) | payer OTHER, SELFPAY ==
--- NOTE | ~2025-03-05 | XR_ITS ---
EXAMINATION: XR HIP 2 OR MORE VIEWS BILATERAL HISTORY: M25.559 - Pain in unspecified hip COMPARISON: Comparison is made with the prior examination dated 01/04/2025. FINDINGS: A single AP view of the pelvis and 2 additional views of each hip are submitted. The patient is status post bilateral total hip arthroplasty. The orthopedic elements are in anatomic alignment. There is lucency adjacent to the acetabular component of the right hip without significant change. No fracture or dislocation is seen. There are vascular calcifications. XR/XR hip BI w PEL1V IMPRESSION: Status post bilateral total hip arthroplasty. Lucency about the right acetabular component without change. Electronically signed by: Venu Hudson MD 03/04/2025 11:08 AM EDT
--- OUTSIDE RECORDS SUMMARY | 2025-03-07 08:57 | XMS_ITS | Encounter Summary ---
Author Organization [employer] Address [address] [facility] 7t [place] [address] Care Team Providers Care Revenue Enforcement Agent Name Role Phone Enid Diaz Primary Care Provider [phone] Reason for Visit * Reason Comments Med Refill Encounter Details Date Type Department Care Team ([facility] st Contact Info) Description 12/03/2023 Refill [facility] [address] [place] [address] Enid Diaz FNP [address] [place] [address] Erectile dysfunction, unspecified erectile dysfunction type Social [...] Description 08/18/2025 1:00 PM EDT Office Visit [facility] ADULT DENTAL [address] [place] [address] Karlene Hancock documented as of this encounter Visit Diagnoses Diagnosis Erectile dysfunction, unspecified erectile dysfunction type documented in this encounter Additional Health Concerns Assessment Noted Time PHQ-9 Depression Total Score: 2 09/17/19 24 10:52 AM EDT documented as of this encounter Care Teams Revenue Enforcement Agent Relationship Specialty Start Date End Date Enid Diaz FNP [address] [place] [address] PCP - General Family Medicine 01/18/22 documented as of this encounter
--- OUTSIDE RECORDS SUMMARY | 2025-03-07 08:57 | XMS_ITS | Clinical Summary ---
Author Organization [employer] Address [address] [place] [address] 7t [place] [address] Care Team Providers Care Municipal Bond Trader Name Role Phone Enid Diaz SURFACE PLATE INSPECTOR Primary Care Provider [phone] Allergies Active Allergy Reactions Criticality Noted Date [...] of tubular adenoma of colon Followed by [facility] general surgery-Dr. Bowling Colonoscopy April 2024. Removed [...] maintenance 04/09/2023 Overview (07/08/2024): Colonoscopy: 04/16/24 at [facility] (Dr. Bowling). Multiple tubular adenomas. Next due: [...] post arthroplasty chronic seroma. - Referral to [facility] Ortho for further eval placed on 01/12/25. Assessment & Plan (04/09/2023 5:15 PM EST): -May use tramadol sparingly (rx 10-15 tablets/month). Reviewed med safety and SE. -Consider referral to OPERATIONS LOGISTICS ANALYST program if need for tramadol persists Assessment & Plan (12/04/2022 6:07 PM EDT): -Tramadol 50mg daily PRN sent to pharmacy - shared decision making to use as infrequently as possible, while still maintaining ability to function in ADLs. (plan for 15 tablets total/month). If benefits > risks and pt continues to request refill of med, will consider OPERATIONS LOGISTICS ANALYST contract -Reviewed med safety and SE. Has [...] to request refill of med, will consider OPERATIONS LOGISTICS ANALYST contract -Reviewed med safety and SE. Satyaan [...] Continue following with nephrology- Dr. Griffith at [facility]. H/o mild hypercalcemia - following calcium and PTH Repeat BMP and microalbumin Assessment & Plan (12/17/2023 10:49 AM EDT): Continue following with nephrology- Dr. Griffith at [facility]. H/o mild hypercalcemia - following with repeat calcium and PTH on routine basis Assessment & Plan (09/21/2023 8:37 PM EDT): Continue following with nephrology- Dr. Griffith at [facility]. Per consult note Jul 2023: h/o mild hypercalcemia - following with repeat calcium and PTH Assessment & Plan (08/06/2023 4:47 PM EST): Continue following with nephrology- Dr. Griffith at [facility] Assessment & Plan (12/04/2022 6:04 [...] Type Department Care Team Description 02/04/2025 Refill [facility] [address] [place] [address] Enid Diaz FNP Muscle spasm 01/24/2025 11:00 AM EDT Office Visit [facility] ADULT [facility] [address] [place] [phone] Karlene Hancock Dental calculus (Primary Dx); Dental staining 01/19/2025 Telephone [facility] [address] [place] [address] Karissa Karlene 01/12/2025 9:45 AM EDT Office Visit [facility] [address] [place] [phone] Enid Diaz FNP Abnormal finding on imaging (Primary Dx); History of bilateral hip replacements; Hematuria, unspecified type; Muscle spasm 01/12/2025 Travel 01/11/2025 Telephone [facility] [address] [place] [phone] Enid Diaz FNP CHART PREP 01/05/2025 Orders [...] Description 08/18/2025 1:00 PM EDT Office Visit [facility] [address] [place] [phone] Karlene Hancock Health Maintenance Due Date Last [...] AM EDT Narrative 01/05/2025 3:25 AM EDT [place] [address] [address] Scan Report Signed Patient: Jose Angel Haas MR#: [id number] 80 : 1955 Acct:[id number] Age/Sex: 69 / M ADM Date: 01/04/25 Loc: HO.ED Attending Dr: Ordering Physician: Santos Ramos PA-C Date of Service: 01/05/25 Procedure(s): CT abdomen pelvis w IV con Accession Number(s): [id number] cc: Santos Ramos PA-C; Enid Diaz [facility] Report Number: [id number]: Total DLP = 635.00 mGy-cm CLINICAL HISTORY: [...] 01/05/25 0324 DD/ 2 TD/TT: 01/05/25 032 Crown Buffer: Procedure Note Barbetitoter, Image - 01/05/[address] [address] [address] Scan Report Signed Patient: Jose Angel HaasMR#: [id number] 80 : 1955cct:[id number] Age/Sex: 69 / MADM Date: 01/04/25 Loc: HO.ED Attending Dr: Ordering Physician: Santos Ramos PA-C Date of Service: 01/05/25 Procedure(s): CT abdomen pelvis w IV con Accession Number(s): [id number] cc: Santos Ramos PA-C; Enid Diaz [facility] Report Number: [id number]: Total DLP = 635.00 mGy-cm CLINICAL HISTORY: [...] OV> 01/05/25 0324 DD/ 2 TD/TT: 01/05/25322 Crown Buffer: [facility] External Provider IMG CT PROCEDURES Final Result * (ABNORMAL) Urinalysis, Complete, with Reflex to Culture (01/05/2025 1:06 AM EDT) Color Urine Yellow [facility] Appearance Urine Clear [facility] PH 5.5 5.0 - 9.0 [facility] Glucose Urine UA Negative Negative mg/dL [facility] Urine Blood Trace(A) Negative [facility] Specific [employer] - Urine 1.015 1.005 - 1.025 [facility] Urine Protein Negative Neg-Trace mg/dL [facility] Urine Ketones Negative Negative mg/dL [facility] Nitrite Urine Negative Negative [facility] Leukocyte Esterase Urine Negative Negative [facility] RBC Urine 0-2 0 - 2 /HPF [facility] Urine WBC 0-5 0 - 5 /HPF [facility] Urine Squamous Epithelial Cell 0-2 0 - 2 /HPF [facility] Urine Bacteria None Seen None Seen [facility] Hyaline Casts, Urine 0-2 0 - 2 /LPF [facility] 01/05/2025 1:06 AM EDT 01/05/2025 1:11 AM EDT Narrative [facility] - 01/05/2025 1:32 AM EDT Urine, Clean Catch Generic External Data Provider LAB URINE ORDERAB LES Final Result [facility] [address] [place] [phone] * (ABNORMAL) Urinalysis w/reflex microscopic (01/05/2025 1:06 AM EDT) Color Urine Yellow [facility] Appearance Urine Clear [facility] PH 5.5 5.0 - 9.0 [facility] Glucose Urine UA Negative Negative mg/dL [facility] Urine Blood Trace(A) Negative [facility] Specific [place] - Urine 1.015 1.005 - 1.025 [facility] Urine Protein Negative Neg-Trace mg/dL [facility] Urine Ketones Negative Negative mg/dL [facility] Nitrite Urine Negative Negative [facility] Leukocyte Esterase Urine Negative Negative [facility] 01/05/2025 1:06 AM EDT 01/05/2025 1:11 AM EDT Narrative [facility] - 01/05/2025 1:29 AM EDT Urine, Clean Catch us Generic External Data Provider LAB URINE ORDERAB LES Final Result Performing Organization Address City/State/[facility] Co de Phone Number [facility] [address] [place] [phone] * XR Hip left with Pelvis 1 view (01/04/2025 9:30 PM EDT) Anatomical Region Laterality Modality Lower Extremities, Hip Bilateral Radiograp hic Imaging 01/04/2025 9:30 PM EDT Narrative 01/04/2025 9:31 PM EDT [place] [address] XRay Report Signed Patient: Jose Angel Haas MR#: [id number] 80 : 1955 Acct:[id number] Age/Sex: 69 / M ADM Date: 01/04/25 Loc: HO.ED Attending Dr: Ordering Physician: Lisa Mclain Date of Service: 01/04/25 Procedure(s): XR hip LT w PEL1V Accession Number(s): [id number] cc: Enid Diaz; Lisa Mclain CLINICAL HISTORY: [...] hip arthroplasty hardware also redemonstrated in the [id number]. Portions of the pelvis obscured without acute [...] in OV> 01/04/252130 DD/ 29 TD/TT: 01/04/252129 Crown Buffer: Procedure Note Donotuseinterpreter, Image - 01/04/2025 [place] [address] XRay Report Signed Patient: Arlene Haas#: [id number] 80 : 1955cct:[id number] Age/Sex: 69 / MADM Date: 01/04/25 Loc: HO.ED Attending Dr: Ordering Physician: Lisa Mclain Date of Service: 01/04/25 Procedure(s): XR hip LT w PEL1V Accession Number(s): [id number] cc: Enid DiazP; Lisa Mclain CLINICAL HISTORY: [...] hip arthroplasty hardware also redemonstrated in the asqmf-ml-vcgu. Portions of the pelvis obscured without acute [...] in OV> 01/04/252130 DD/ 29 TD/TT: 01/04/252129 Crown Buffer: us [facility] External Provider IMG XR PROCEDURES Edited Result - Final * (ABNORMAL) CBC auto differential (01/04/2025 8:52 PM EDT) White Blood Count 11.8(H) 4.8 - 10.8 X10*3/uL [facility] Red Blood Count 4.45(L) 4.60 - 5.80 X10*6/uL [facility] Hemoglobin 15.4 14.0 - 18.0 g/dl [facility] Hematocrit 44.4 42.0 - 52.0 % [facility] Mean Corpuscular Volume 99.8(H) 80.0 - 98.0 fL [facility] Mean Corpuscular Hemoglobin 34.6(H) 27.0 - 33.0 pg [facility] Mean Corpuscular HGB Conc 34.7 31.0 - 36.0 g/dl [facility] Red Cell Distribution Width 12.2 11.0 - 16.0 % [facility] Platelet Count 198 160 - 400 X10*3/uL [facility] Mean Platelet Volume 10.9 9.4 - 12.4 fL [facility] Neutrophils Percent Auto 56.6 45 - 73 % [facility] Imm Gran Pct Auto 0.3 0.0 - 0.4 % [facility] Lymphocytes Percent Auto 33.8 20 - 40 % [facility] Monocytes Percent Auto 6.5 2 - 11 % [facility] Eosinophils Percent Auto 2.0 0 - 4 % [facility] Basophils Percent Auto 0.8 0 - 2 % [facility] NRBC Pct Auto 0.0 0.0 - 0.2 /100WBC [facility] Neutrophils Absolute Auto 6.7 2.0 - 8.3 x10*3/uL [facility] Imm Gran Abs Auto 0.04(H) 0.00 - 0.03 X10*3/uL [facility] Lymphocytes Absolute Auto 4.0 1.2 - 4.9 X10*3/uL [facility] Monocytes Absolute Auto 0.8 0.1 - 1.2 X10*3/uL [facility] Eosinophils Absolute Auto 0.2 0.0 - 0.4 X10*3/uL [facility] Basophils Absolute Auto 0.1 0.0 - 0.2 X10*3/uL [facility] NRBC Abs Auto 0.000 0.0 - 0.012 X10*3/uL [facility] 01/04/2025 8:52 PM EDT 01/04/2025 8:55 PM EDT Generic External Data Provider LAB BLOOD ORDERAB LES Final Result Performing Organization Address [facility] Co de Phone Number [facility] [address] [place] [address] [phone] * Magnesium (01/04/2025 8:52 PM EDT) Magnesium 2.0 1.6 - 2.6 mg/dL [facility] 01/04/2025 8:52 PM EDT 01/04/2025 8:55 PM EDT Generic External Data Provider LAB BLOOD ORDERAB LES Final Result Performing Organization Address [facility] Co de Phone Number [facility] [address] [place] [phone] * Hepatic Function Panel (01/04/2025 8:52 PM EDT) Bilirubin, Total 0.6 0.0 - 1.0 mg/dL [facility] Bilirubin, Direct 0.2 0.0 - 0.5 mg/dL [facility] Aspartate Amino Transferase 27 5 - 37 U/L [facility] Alanine Aminotransferase 31 0 - 40 U/L [facility] Total Protein 7.5 6.5 - 8.0 g/dL [facility] Albumin Level 4.4 3.5 - 5.0 g/dL [facility] Alkaline Phosphatase 66 39 - 117 U/L [facility] 01/04/2025 8:52 PM EDT 01/04/2025 8:55 PM EDT us Generic External Data Provider LAB BLOOD ORDERAB LES Final Result [facility] [address] [place] [phone] * (ABNORMAL) Basic Metabolic Panel (01/04/2025 8:52 PM EDT) Sodium 144 135 - 145 mmol/L [facility] Potassium 4.1 3.3 - 5.1 mmol/L [facility] Chloride 108 96 - 108 mmol/L [facility] Carbon Dioxide 25 22 - 29 mmol/L [facility] Anion Gap 15 12 - 20 [facility] Urea Nitrogen (BUN) 13 9 - 16 mg/dL [facility] Creatinine, Serum 1.16 0.5 - 1.4 mg/dL [facility] Creatinine Clr Calc Pharmacy 60.3 [facility] Comment:eGFR (calculated fro m the MDRD study equation) and eCrCl(calculated from the Cockcroft-Gault equation) are based ondifferent parameters and may not yield comparable results.If eCrCl result is absurd, please check patient'sheight/weight. Estimated Glomerular Filt Rate >60 [facility] Comment:Chronic Kidney Disea se: Estimated GFR < 60 mL/min/1.30n0Lqlbqo Kidney Disease: Estimated GFR < 15 mL/min/1.73m2 Glucose 122(H) 60 - 115 mg/dL [facility] Calcium 9.4 8.4 - 10.2 mg/dL [facility] 01/04/2025 8:52 PM EDT 01/04/2025 8:55 PM EDT us Generic External Data Provider LAB BLOOD ORDERAB LES Final Result Performing Organization Address [facility] de Phone Number [facility] [address] [place] [phone] * Hepatitis C Viral RNA, Quantitative, Real-Time PCR (10/04/2024 9:56 AM EDT) Hepatitis C Viral Load <15 NOT DETECTED NOT DETECTED IU/mL [facility] HCV Log PCR <1.18 NOT DETECTED NOT DETECTED Log IU/mL [facility] Comment:For additional infor martha, please refer tohttp://education.Porphyrio/faq/IWX36a4(This link is being provided for informational/educational purposes only.)THIS TEST WAS PERFORMED AT:[facility] [place] [phone] REYNOLDS MD Blood 10/04/2024 9:56 AM EDT 10/04/2024 11:18 AM EDT us Enid Diaz SURFACE PLATE INSPECTOR LAB BLOOD ORDERABLES Final Res ult Performing Organization Address [facility] de Phone Number [facility] [address] [place] [phone] * Lipid Panel, Standard (10/04/2024 9:56 AM EDT) Triglycerides 78 <150 mg/dL [facility] Comment:Desirable Triglyceri de: less than 150 mg/dLBorderline High Triglyceride 150-199 mg/dLHigh Triglyceride: 200-499 mg/dLVery High Triglyceride: greater than or equal to 5OO mg/dL Cholesterol 140 <200 mg/dL [facility] Comment:Desirable Cholestero l: less than 200 mg/dLBorderline High Cholesterol: 200-239 mg/dLHigh Cholesterol: greater than 239 mg/dL LDL Cholesterol Calculated 53 <100 mg/dL [facility] Comment:Desirable LDL: less than 100 mg/dLNear Optimal/Above Optimal LDL: 110- 129 mg/dLBorderline High LDL: 130-159 mg/dLHigh LDL: 160-189 mg/dLVery High LDL: greater than or equal to 190 mg/dL HDL Cholesterol 72 >40 mg/dL [facility] Comment:Desirable HDL: great er than 40 mg/dL Note: This HDL assay may give artificially low results in patients with liver disease. Blood Venous blood specimen / Unknown 10/04/2024 9:56 AM EDT 10/04/2024 11:19 AM EDT Enid Diaz SURFACE PLATE INSPECTOR LAB BLOOD ORDERABLES Final Res ult [facility] [address] [place] [phone] * Colonoscopy (04/16/2024 4:45 PM EST) Historical Provider HEALTH MAINTENANCE Final Result from Last 3 Months or Most Recently Relevant to Health Maintenance Insurance [facility] CUSTODIAL OPTIONS (O D-SNP) [place] [id number] [facility] Care Teams Municipal Bond Trader Relationship Specialty Start Date End Date Enid Diaz FNP [address] [place] [phone] PCP - General Family Medicine 01/18/22
--- OUTSIDE RECORDS SUMMARY | 2025-03-07 08:57 | XMS_ITS | Clinical Summary ---
Author Organization [facility] Address [address] [place] [address] Phone Care Team Providers Care Enrollment Processor Name Role Phone Arlene Wong NP Primary Care Provider [phone] Allergies Active Allergy Reactions Criticality Noted Date [...] patient's age to complete this topic Insurance [facility] [place] [id number] [facility] [place] [id number] Care Teams Enrollment Processor Relationship Specialty Start Date End Date Arlene Wong NP PCP - General 06/12/20
--- OUTSIDE RECORDS SUMMARY | 2025-03-07 08:57 | XMS_ITS | Encounter Summary ---
Author Organization [employer] Address [address] [facility] 7t [place] [address] Care Team Providers Care Service Worker Helper Name Role Phone Enid Diaz CARDIOPULMONARY TECHNOLOGIST CHIEF Primary Care Provider [phone] Encounter Details Date Type Department Care Team ([facility] st Contact Info) Description 05/05/2024 Orders Only [facility] MED & PEDS [address] [place], [place] [id number] Provider, MD Harvey Social History Tobacco Use [...] Description 08/18/2025 1:00 PM EDT Office Visit [facility] ADULT DENTAL [address] [place] [address] Karlene Hancock documented as of this encounter [...] documented as of this encounter Care Teams Service Worker Helper Relationship Specialty Start Date End Date Enid Diaz FNP [address] [place] [address] PCP - General Family Medicine 01/18/22 documented as of this encounter
--- OUTSIDE RECORDS SUMMARY | 2025-03-07 08:57 | XMS_ITS | Encounter Summary ---
Author Organization [employer] Address [address] [facility] 7t [place] [address] Care Team Providers Care Softwood Faller Name Role Phone Enid Diaz Primary Care Provider [phone] Reason for Visit * Reason Comments Med Refill Encounter Details Date Type Department Care Team ([facility] st Contact Info) Description 02/04/[address] [facility] MEDICINE [address] [place] [address] Enid Diaz FNP [address] [place] [address] Muscle spasm Social History Tobacco Use Types [...] Description 08/18/2025 1:00 PM EDT Office Visit [facility] ADULT DENTAL [address] [place] [address] Karlene Hancock documented as of this encounter Visit Diagnoses Diagnosis Muscle spasm Spasm of muscle documented in this encounter Additional Health Concerns Assessment Noted Time PHQ-9 Depression Total Score: 0 01/13/20 25 9:41 AM EDT documented as of this encounter Care Teams Softwood Faller Relationship Specialty Start Date End Date Enid Diaz FNP [address] [place] [address] PCP - General Family Medicine 01/18/22 documented as of this encounter
--- OUTSIDE RECORDS SUMMARY | 2025-03-07 08:57 | XMS_ITS | Encounter Summary ---
Author Organization [employer] [facility] Address [address] [facility] [address] [place] [address] Care Team Providers Care Vocational Instructor Name Role Phone Enid Diaz INNOVATION MANAGER Primary Care Provider [phone] Reason for Visit * Reason Comments Med Refill Encounter Details Date Type Department Care Team (Late st Contact Info) Description 02/11/2023 Refill [facility] MEDICINE [address] [place] [address] Name, MD Josef [address] [place] [address] Hypertension, unspecified type Social History Tobacco Use [...] 1:00 PM EDT Office Visit [facility] ADULT DENTAL [address] [place] [address] Karlene Hancock documented as of this encounter Visit Diagnoses Diagnosis Hypertension, unspecified type documented in this encounter Additional Health Concerns Assessment Noted Time PHQ-9 Depression Total Score: 0 05/21/20 3:26 PM EST documented as of this encounter Care Teams Vocational Instructor Relationship Specialty Start Date End Date Enid Diaz FNP [address] [place] [address] PCP - General Family Medicine 01/18/22 documented as of this encounter
--- OUTSIDE RECORDS SUMMARY | 2025-03-07 08:58 | XMS_ITS | Encounter Summary ---
Author Organization [employer] Address [address] [facility] [address] [place] [address] Care Team Providers Care Hand I Tube Bender Name Role Phone Enid Diaz UNIVERSAL BANKER Primary Care Provider [phone] Encounter Details Date Type Department Care Team (Late st Contact Info) Description 08/30/2022 Orders Only [facility] CHC MED & PEDS [address] [place] [address] Winnie Harris LPN Social History Tobacco Use [...] [facility] [address] [place] [address] Karlene Hancock documented as of this encounter Visit Diagnoses Not on filedocumented in this encounter Additional Health Concerns Assessment Noted Time PHQ-9 Depression Total Score: 0 05/21/20 3:26 PM EST documented as of this encounter Care Teams Hand I Tube Bender Relationship Specialty Start Date End Date Enid Diaz FNP [address] [place] [address] PCP - General Family Medicine 01/18/22 documented as of this encounter
--- OUTSIDE RECORDS SUMMARY | 2025-03-07 08:58 | XMS_ITS | Encounter Summary ---
Author Organization [employer] Address [address] [facility] [address] [place] [address] Care Team Providers Care Patient Sitter Name Role Phone Enid Diaz Primary Care Provider [phone] Reason for Visit * Reason Comments Med Refill Encounter Details Date Type Department Care Team ([facility] st Contact Info) Description 04/29/2023 Refill [facility] [address] [place] [address] Enid Diaz FNP [address] [place] [address] Hypothyroidism, unspecified type Social History Tobacco Use [...] Please ask him to come [email or web address] to complete blood work at his convenience, thank you! documented in this encounter Plan of Treatment Upcoming Encounters Date Type Department Care Team (Late st Contact Info) Description 08/18/2025 1:00 PM EDT Office Visit [facility] ADULT DENT[facility] [address] [place] [address] Karlene Hancock documented as of this encounter Procedures Procedure Name Priority Date/Time Associated Diagnosis Comments TSH W/REFLEX TO FT4 Routine 05/01/2023 9 :25 AM EST Hypothyroidism, unspecified type documented in this encounter Results * TSH W/Reflex to FT4 (05/01/2023 9:25 AM EST) TSH reflex Free T4 0.62 0.32 - 4.0 uIU/mL [facility] Blood 05/01/2023 9:25 AM EST 05/01/2023 11:13 AM EST us [facility] BLOOD ORDERABLES Final Res ult [facility] [address] [place] [address] [phone] documented in this encounter Visit Diagnoses Diagnosis Hypothyroidism, unspecified type documented in this encounter Additional Health Concerns Assessment Noted Time PHQ-9 Depression Total Score: 0 05/21/20 22 3:26 PM EST documented as of this encounter Care Teams Patient Sitter Relationship Specialty Start Date End Date Enid Diaz FNP [address] [place] [address] PCP - General Family Medicine 01/18/22 documented as of this encounter
--- OUTSIDE RECORDS SUMMARY | 2025-03-07 08:58 | XMS_ITS | Encounter Summary ---
Author Organization [employer] [facility] Address [address] [place] [address] [address] [place] [address] Care Team Providers Care Consulting Group Analyst Name Role Phone Enid Diaz Primary Care Provider [phone] Encounter Details Date Type Department Care Team (Latest Contact Info) Description 12/10/2018 Abstract [facility] CONVERSION[facility] Dental, Provider, DDS Social History [...] 1:00 PM EDT Office Visit [facility] ADULT DENTAL [address] [place] [address] Karlene Hancock documented as of this encounter Visit Diagnoses Not on filedocumented in this encounter Care Teams Consulting Group Analyst Relationship Specialty Start Date End Date Enid Diaz FNP [address] [place] [address] PCP - General Family Medicine 01/18/22 documented as of this encounter
== END 2025-03-05 08:28 | disposition home or self-care (01) ==
LOC: HO.HOSX 08:27
PROVIDERS: Visit Provider Physician Assistant
DX: M25.551 Pain in right hip (principal); M25.552 Pain in left hip
CPT/HCPCS: 73521

== ENCOUNTER 2025-03-31 11:18 | Outpatient (REF) | payer OTHER, SELFPAY ==
[2025-03-31 12:28] LABS: Anion Gap 9 (12-20); Blood Urea Nitrogen 15 mg/dL (9-16); Calcium 9.7 mg/dL (8.4-10.2); Carbon Dioxide 28 mmol/L (22-29); Chloride 110 mmol/L (96-108); Estimated Glomerular Filt Rate 59; Potassium 4.3 mmol/L (3.3-5.1); Sodium 143 mmol/L (135-145)
[2025-03-31 12:37] LABS: Parathyroid Hormone Intact 97.4 pg/mL (8.7-77.1)
--- OUTSIDE RECORDS SUMMARY | 2025-03-31 14:10 | XMS_ITS | Encounter Summary ---
Author Organization [employer] Address [address] [facility] [address] [place] [address] Care Team Providers Care Brush Fabrication Supervisor Name Role Phone Enid Diaz Primary Care Provider [phone] Reason for Visit * Reason Comments Med Refill Encounter Details Date Type Department Care Team ([facility] st Contact Info) Description 02/04/2025 Refill [facility] MEDICINE [address] [place] [address] Enid Diaz FNP [address] [place] [address] Muscle spasm Social History Tobacco Use Types [...] Description 08/18/2025 1:00 PM EDT Office Visit [facility] ADULT DENTAL [address] [place] [address] Karlene Hancock documented as of this encounter Visit Diagnoses Diagnosis Muscle spasm Spasm of muscle documented in this encounter Additional Health Concerns Assessment Noted Time PHQ-9 Depression Total Score: 0 01/13/20 25 9:41 AM EDT documented as of this encounter Care Teams Brush Fabrication Supervisor Relationship Specialty Start Date End Date Enid Diaz FNP [address] [place] [address] PCP - General Family Medicine 01/18/22 documented as of this encounter
--- OUTSIDE RECORDS SUMMARY | 2025-03-31 14:10 | XMS_ITS | Encounter Summary ---
Author Organization [employer] [facility] Address [address] [facility] [address] [place] [address] Care Team Providers Care Car Distributor Name Role Phone Enid Diaz YOUNG ADULT LIBRARIAN Primary Care Provider [phone] Reason for Visit * Reason Comments Med Refill Encounter Details Date Type Department Care Team (Late st Contact Info) Description 02/11/2023 Refill [facility] MEDICINE [address] [place] [address] Name, MD Josef [address] [place] [address] Hypertension, unspecified type Social History Tobacco Use [...] Office Visit [facility] ADULT DENTAL [address] [place] [address] Karlene Hancock documented as of this encounter Visit Diagnoses Diagnosis Hypertension, unspecified type documented in this encounter Additional Health Concerns Assessment Noted Time PHQ-9 Depression Total Score: 0 05/21/20 3:26 PM EST documented as of this encounter Care Teams Car Distributor Relationship Specialty Start Date End Date Enid Diaz FNP [address] [place] [address] PCP - General Family Medicine 01/18/22 documented as of this encounter
--- OUTSIDE RECORDS SUMMARY | 2025-03-31 14:10 | XMS_ITS | Clinical Summary ---
Author Organization [employer] Address [address] [place] [address] 7[address] [place] [address] Care Team Providers Care Digital Account Supervisor Name Role Phone Enid Diaz SERVICE PROVIDER Primary Care Provider [phone] Allergies Active Allergy Reactions Criticality Noted Date Comments Ibuprofen 09/11/2015 Other reaction(s): upset stomach Penicillin G 05/21/2022 Medications clotrimazole (Lotrimin) 1 % creamIndications: Tinea pedis of both feet Apply topically between affected toes twice daily for 28 days 30 g 2 023 Active traMADol (Ultram) 50 MG tabletIndications :History of bilateral hip replacements Take 1 tablet (50 mg) by mouth if needed each day for severe pain. 10 tablet 1 023 Active pantoprazole (ProtoNix) 40 MG EC tablet TAKE 1 TABLET BY MOUTH EVERY DAY 90 tablet 1 023 Active lidocaine (Lidoderm) 5 % patch Apply 1 patch topically Once per day. Remove & discard patch within 12 hours or as directed by MD. 30 patch 2 024 Active lidocaine-priloca ine (Emla) 2.5-2.5 % cream Apply topically if needed in the morning, at noon, and at bedtime for mild pain. 30 g 2 024 Active amLODIPine (Norvasc) 2.5 MG tabletIndications :Hypertension, unspecified type TAKE 1 TABLET BY MOUTH EVERY MORNING 90 tablet 3 024 Active loratadine (Claritin) 10 MG tablet TAKE 1 TABLET BY MOUTH EVERY DAY NEEDED 90 tablet 3 024 Active albuterol 108 (90 Base) MCG/ACT inhalerIndication s:Mild intermittent asthma without complication Inhale 2 puffs Every 4-6 hours as needed for wheezing or shortness of breath. 18 g 2 025 2025 Active levothyroxine (Synthroid, Levoxyl) 112 MCG tabletIndications :Acquired hypothyroidism TAKE 1 TABLET BY MOUTH FRIDAY, FRIDAY, FRIDAY, FRIDAY BEFORE BREAKFAST. 48 tablet 3 025 Active rosuvastatin (Crestor) 10 MG tablet TAKE 1 TABLET BY MOUTH EVERY DAY AT BEDTIME 90 tablet 3 025 Active levothyroxine (Synthroid, Levoxyl) 125 MCG tablet TAKE 1 TABLET BY MOUTH ON FRIDAY, FRIDAY AND FRIDAY BEFORE BREAKFAST 36 tablet 3 025 Active sildenafil (Viagra) 100 MG tabletIndications :Erectile dysfunction, unspecified erectile dysfunction type TAKE 1/2 TO 1 TABLET BY MOUTH ONCE DAILY NEEDED 9 tablet 5 025 Active cyclobenzaprine (Flexeril) 10 MG tabletIndications :Muscle spasm Take 1 tablet (10 mg) by mouth if needed in the morning, at noon, and at bedtime for muscle spasms for up to 10 days. 30 tablet 1 025 Active Additional Information Patient not taking.Reported on 01/24/2025 cholecalciferol (D3 Super Strength) 50 MCG (2000 UT) capsule Take 1 capsule (50 mcg) by mouth Once per day. TAKE 1 CAPSULE BY MOUTH EVERY DAY IN THE MORNING 90 capsule 2 025 Active cholecalciferol (D3 Super Strength) 50 MCG (2000 UT) capsule TAKE 1 CAPSULE BY MOUTH EVERY DAY IN THE MORNING 90 capsule 1 025 2024 Discontinued(R eorder (will not trigger notification to Pharmacy)) Active Problems Problem Noted Date Diagnosed Date Tubular adenoma 07/08/2024 Overview (07/08/2024): History of tubular adenoma of colon Followed by [facility] general surgery-Dr. Bowling Colonoscopy April 2024. Removed [...] maintenance 04/09/2023 Overview (07/08/2024): Colonoscopy: 04/16/24 at [facility] (Dr. Bowling). Multiple tubular adenomas. Next due: [...] post arthroplasty chronic seroma. - Referral to [facility] Ortho for further eval placed on 01/12/25. Assessment & Plan (04/09/2023 5:15 PM EST): -May use tramadol sparingly (rx 10-15 tablets/month). Reviewed med safety and SE. -Consider referral to [facility] program if need for tramadol persists Assessment & Plan (12/04/2022 6:07 PM EDT): -Tramadol 50mg daily PRN sent to pharmacy - shared decision making to use as infrequently as possible, while still maintaining ability to function in ADLs. (plan for 15 tablets total/month). If benefits > risks and pt continues to request refill of med, will consider [facility] contract -Reviewed med safety and SE. Has [...] to request refill of med, will consider [facility] contract -Reviewed med safety and SE. Narcan [...] w PCP Stage 3 chronic kidney disease ([facility]) 021 Assessment & Plan (07/08/2024 10:44 AM EST): Continue following with nephrology- Dr. Griffith at [facility]. H/o mild hypercalcemia - following calcium and PTH Repeat BMP and microalbumin Assessment & Plan (12/17/2023 10:49 AM EDT): Continue following with nephrology- Dr. Griffith at [facility]. H/o mild hypercalcemia - following with repeat calcium and PTH on routine basis Assessment & Plan (09/21/2023 8:37 PM EDT): Continue following with nephrology- Dr. Griffith at [facility]. Per consult note Jul 2023: h/o mild hypercalcemia - following with repeat calcium and PTH Assessment & Plan (08/06/2023 4:47 PM EST): Continue following with nephrology- Dr. Griffith at [facility] Assessment & Plan (12/04/2022 6:04 [...] Encounters Date Type Department Care Team Description 03/31/2025 Orders Only GENERIC EXTERNAL DATA DEPARTMENT Provider, Generic External Data 03/10/2025 Refill [facility] [address] [place] [address] Enid Diaz FNP 02/04/2025 Refill [facility] [address] [place] [address] Enid Diaz FNP Muscle spasm 01/24/2025 11:00 AM EDT Office Visit [facility] ADULT DENTAL [address] [place] [address] Karlene Hancock Dental calculus (Primary Dx); Dental staining 01/19/2025 Telephone [facility] ADULT DENTAL [address] [place] [address] Scarlet Hancocksa 01/12/2025 9:45 AM EDT Office Visit [facility] [address] [place] [phone] Enid Diaz FNP Abnormal finding on imaging (Primary Dx); History of bilateral hip replacements; Hematuria, unspecified type; Muscle spasm 01/12/2025 Travel 01/11/2025 Telephone [facility] [address] [place] [phone] Enid Diaz FNP CHART PREP 01/05/2025 Orders [...] your housing situation today? I have sudarshan quita 01/12/[address] you li [...] Description 08/18/2025 1:00 PM EDT Office Visit [facility] ADULT DENTAL [address] [facility], [place] [phone] Karlene Hancock Health Maintenance Due Date Last [...] Screening 01/24/2026 01/24/2025 Dental X-Ray: [facility] 01/25/2026 01/25/20 25, 01/13/2024, 06/12/2023, Additional history exists Dental X-Ray: [...] Procedure Name Priority Date/Time Associated Diagnosis Comments PTH, INTACT WITHOUT CALCIUM Routine 03/31/2025 11:28 AM EDT BASIC METABOLIC PANEL Routine 03/31/2025 11:28 AM EDT PERIODIC ORAL EVALUATION - ESTABLISHED PATIENT Routine [...] Recently Relevant to Health Maintenance Results * (ABNORMAL) PTH, Intact Without Calcium (03/31/2025 11:28 AM EDT) Parathyroid Hormone, Intact 97.4(H) 8.7 - 77.1 pg/mL [facility] 03/31/2025 11:2 8 AM EDT 03/31/2025 11:28 AM EDT us Generic External Data Provider LAB BLOOD ORDERAB LES Final Result [facility] [address] [place] [phone] * (ABNORMAL) Basic Metabolic Panel (03/31/2025 11:28 AM EDT) Only the most recent of2 resultswithin the time period is included. Sodium 143 135 - 145 mmol/L [facility] Potassium 4.3 3.3 - 5.1 mmol/L [facility] Chloride 110(H) 96 - 108 mmol/L [facility] Carbon Dioxide 28 22 - 29 mmol/L [facility] Anion Gap 9(L) 12 - 20 [facility] Urea Nitrogen (BUN) 15 9 - 16 mg/dL [facility] Creatinine, Serum 1.21 0.5 - 1.4 mg/dL [facility] Estimated Glomerular Filt Rate 59 [facility] Comment:Chronic Kidney Disea se: Estimated GFR < 60 mL/min/1.92k4Zczrza Kidney Disease: Estimated GFR < 15 mL/min/1.73m2 Glucose 212(H) 60 - 115 mg/dL [facility] Calcium 9.7 8.4 - 10.2 mg/dL [facility] 03/31/2025 11:2 8 AM EDT 03/31/2025 11:28 AM EDT us Generic External Data Provider LAB BLOOD ORDERAB LES Final Result Performing Organization Address City/State/[facility] Co de Phone Number [facility] [address] [place] [address] [phone] * CT Abdomen Pelvis w/ Contrast (01/05/2025 3:23 AM EDT) Anatomical Region Laterality Modality Body, Pelvis, Abdomen Computed T omography 01/05/2025 3:23 AM EDT Narrative 01/05/2025 3:25 AM EDT [place] [address] [address] Scan Report Signed Patient: Jose Angel Haas MR#: [id number] [birth year] : 1955 Acct:[id number] Age/Sex: 69 / M ADM Date: 01/04/25 Loc: .ED Attending Dr: Ordering Physician: Santos Ramos PA-C Date of Service: 01/05/25 Procedure(s): CT abdomen pelvis w IV con Accession Number(s): [id number] cc: Santos Ramos PA-C; Enid Diaz SERVICE PROVIDER Report Number: [id number]: Total DLP = 635.00 mGy-cm CLINICAL HISTORY: [...] signed by Aaron Wasserman MD in OV> 01/05/25323 DD/ 2 TD/TT: 01/05/25322 Senior Account Executive: Procedure Note Donotuseinterpreter, Image - 01/05/[address] [place] [address] [address] Scan Report Signed Patient: Jose Angel HaasMR#: [id number] [birth year] : 3Acct:[id number] Age/Sex: 69 / MADM Date: 01/04/25 Loc: HO.ED Attending Dr: Ordering Physician: Santos Ramos PA-C Date of Service: 01/05/25 Procedure(s): CT abdomen pelvis w IV con Accession Number(s): [id number] cc: Santos Ramos PA-C; Enid Diaz SERVICE PROVIDER Report Number: [id number]: Total DLP = 635.00 mGy-cm CLINICAL HISTORY: [...] OV> 01/05/25 0324 DD/ 2 TD/TT: 01/05/25322 Senior Account Executive: us [facility] External Provider IMG CT PROCEDURES Final Result * (ABNORMAL) Urinalysis, Complete, with Reflex to Culture (01/05/2025 1:06 AM EDT) Color Urine Yellow [facility] Appearance Urine Clear [facility] PH 5.5 5.0 - 9.0 [facility] Glucose Urine UA Negative Negative mg/dL [facility] Urine Blood Trace(A) Negative [facility] Specific [place] - Urine 1.015 1.005 - 1.025 [facility] Urine Protein Negative Neg-Trace mg/dL [facility] Urine Ketones Negative Negative mg/dL [facility] Nitrite Urine Negative Negative [facility] Leukocyte Esterase Urine Negative Negative [facility] RBC Urine 0-2 0 - 2 /HPF [facility] Urine WBC 0-5 0 - 5 /HPF [facility] Urine Squamous Epithelial Cell 0-2 0 - 2 /HPF [facility] Urine Bacteria None Seen None Seen [facility] Hyaline Casts, Urine 0-2 0 - 2 /LPF [facility] 01/05/2025 1:06 AM EDT 01/05/2025 1:11 AM EDT Narrative [facility] - 01/05/2025 1:32 AM EDT Urine, Clean Catch Generic External Data Provider LAB URINE ORDERAB LES Final Result Performing Organization Address [facility] Co de Phone Number [facility] [address] [place] [phone] * (ABNORMAL) Urinalysis w/reflex microscopic (01/05/2025 1:06 AM EDT) Color Urine Yellow [facility] Appearance Urine Clear [facility] PH 5.5 5.0 - 9.0 [facility] Glucose Urine UA Negative Negative mg/dL [facility] Urine Blood Trace(A) Negative [facility] Specific [place] - Urine 1.015 1.005 - 1.025 [facility] Urine Protein Negative Neg-Trace mg/dL [facility] Urine Ketones Negative Negative mg/dL [facility] Nitrite Urine Negative Negative [facility] Leukocyte Esterase Urine Negative Negative [facility] 01/05/2025 1:06 AM EDT 01/05/2025 1:11 AM EDT Narrative [facility] - 01/05/2025 1:29 AM EDT Urine, Clean Catch us Generic External Data Provider LAB URINE ORDERAB LES Final Result Performing Organization Address City/[facility]/ZIP Co de Phone Number [facility] [address] [place] [phone] * XR Hip left with Pelvis 1 view (01/04/2025 9:30 PM EDT) Anatomical Region Laterality Modality Lower Extremities, Hip Bilateral Radiograp hic Imaging 01/04/2025 9:30 PM EDT Narrative 01/04/2025 9:31 PM EDT [place] [address] XRay Report Signed Patient: Jose Angel Haas MR#: [id number] [birth year] : 1955 Acct:[id number] Age/Sex: 69 / M ADM Date: 01/04/25 Loc: HO.ED Attending Dr: Ordering Physician: Lisa Mclain Date of Service: 01/04/25 Procedure(s): XR hip LT w PEL1V Accession Number(s): [id number] cc: Enid DiazP; Lisa Mclain CLINICAL HISTORY: [...] hip arthroplasty hardware also redemonstrated in the knnxk-fy-frul. Portions of the pelvis obscured without acute [...] in OV> 01/04/252130 DD/ 29 TD/TT: 01/04/252129 Senior Account Executive: Procedure Note Donotuseinterpreter, Image - 01/04/[address] [address] XRay Report Signed Patient: Jose Angel HaasMR#: [id number] 80 : 1955cct:[id number] Age/Sex: 69 / MADM Date: 01/04/25 Loc: HO.ED Attending Dr: Ordering Physician: Lisa Mclain Date of Service: 01/04/25 Procedure(s): XR hip LT w PEL1V Accession Number(s): [id number] cc: Enid Diaz; iLsa Mclain CLINICAL HISTORY: pain 3 view, pelvis and left hip Comparison: X-ray of the pelvis and right hip from 06/12/2022. Findings: Osseous lucencies of the proximal remaining left femur are nonspecific and can be seen with chronic and/or subacute hardware loosening. No acute fracture about left hip arthroplasty hardware at this time. Right hip arthroplasty hardware also redemonstrated in the chqkw-rw-xiyu. Portions of the pelvis obscured without acute [...] in OV> 01/04/252130 DD/ 29 TD/TT: 01/04/252129 Senior Account Executive: [facility] External Provider IMG XR PROCEDURES Edited Result - Final * (ABNORMAL) CBC auto differential (01/04/2025 8:52 PM EDT) White Blood Count 11.8(H) 4.8 - 10.8 X10*3/uL [facility] Red Blood Count 4.45(L) 4.60 - 5.80 X10*6/uL [facility] Hemoglobin 15.4 14.0 - 18.0 g/dl [facility] Hematocrit 44.4 42.0 - 52.0 % [facility] Mean Corpuscular Volume 99.8(H) 80.0 - 98.0 fL [facility] Mean Corpuscular Hemoglobin 34.6(H) 27.0 - 33.0 pg [facility] Mean Corpuscular HGB Conc 34.7 31.0 - 36.0 g/dl [facility] Red Cell Distribution Width 12.2 11.0 - 16.0 % [facility] Platelet Count 198 160 - 400 X10*3/uL [facility] Mean Platelet Volume 10.9 9.4 - 12.4 fL [facility] Neutrophils Percent Auto 56.6 45 - 73 % [facility] Imm Gran Pct Auto 0.3 0.0 - 0.4 % [facility] Lymphocytes Percent Auto 33.8 20 - 40 % [facility] Monocytes Percent Auto 6.5 2 - 11 % [facility] Eosinophils Percent Auto 2.0 0 - 4 % [facility] Basophils Percent Auto 0.8 0 - 2 % [facility] NRBC Pct Auto 0.0 0.0 - 0.2 /100WBC [facility] Neutrophils Absolute Auto 6.7 2.0 - 8.3 x10*3/uL [facility] Imm Gran Abs Auto 0.04(H) 0.00 - 0.03 X10*3/uL [facility] Lymphocytes Absolute Auto 4.0 1.2 - 4.9 X10*3/uL [facility] Monocytes Absolute Auto 0.8 0.1 - 1.2 X10*3/uL [facility] Eosinophils Absolute Auto 0.2 0.0 - 0.4 X10*3/uL [facility] Basophils Absolute Auto 0.1 0.0 - 0.2 X10*3/uL [facility] NRBC Abs Auto 0.000 0.0 - 0.012 X10*3/uL [facility] 01/04/2025 8:52 PM EDT 01/04/2025 8:55 PM EDT us Generic External Data Provider LAB BLOOD ORDERAB LES Final Result [facility] [address] [place] [address] [phone] * Magnesium (01/04/2025 8:52 PM EDT) Pathologist [facility] Magnesium 2.0 1.6 - 2.6 mg/dL [facility] 01/04/2025 8:52 PM EDT 01/04/2025 8:55 PM EDT Generic External Data Provider LAB BLOOD ORDERAB LES Final Result Performing Organization Address [facility] Co de Phone Number [facility] [address] [place] [phone] * Hepatic Function Panel (01/04/2025 8:52 PM EDT) [facility] Bilirubin, Total 0.6 0.0 - 1.0 mg/dL [facility] Bilirubin, Direct 0.2 0.0 - 0.5 mg/dL [facility] Aspartate Amino Transferase 27 5 - 37 U/L [facility] Alanine Aminotransferase 31 0 - 40 U/L [facility] Total Protein 7.5 6.5 - 8.0 g/dL [facility] Albumin Level 4.4 3.5 - 5.0 g/dL [facility] Alkaline Phosphatase 66 39 - 117 U/L [facility] 01/04/2025 8:52 PM EDT 01/04/2025 8:55 PM EDT Generic External Data Provider LAB BLOOD ORDERAB LES Final Result Performing Organization Address [facility] Co de Phone Number [facility] [address] [place] [phone] * Hepatitis C Viral RNA, Quantitative, Real-Time PCR (10/04/2024 9:56 AM EDT) [facility] Hepatitis C Viral Load <15 NOT DETECTED NOT DETECTED IU/mL [facility] HCV Log PCR <1.18 NOT DETECTED NOT DETECTED Log IU/mL [facility] Comment:For additional infor martha, please refer tohttp://education.questdiagnostics.com/faq/IIS04m2(This link is being provided for informational/educational purposes only.)THIS TEST WAS PERFORMED AT:[facility] [place] [phone] REYNOLDS MD Blood 10/04/2024 9:56 AM EDT 10/04/2024 11:18 AM EDT us Enid Diaz SERVICE PROVIDER LAB BLOOD ORDERABLES Final Res ult Performing Organization Address [facility] Co de Phone Number [facility] [address] [place] [address] [phone] * Lipid Panel, Standard (10/04/2024 9:56 AM EDT) Triglycerides 78 <150 mg/dL [facility] Comment:Desirable Triglyceri de: less than 150 mg/dLBorderline High Triglyceride 150-199 mg/dLHigh Triglyceride: 200-499 mg/dLVery High Triglyceride: greater than or equal to 5OO mg/dL Cholesterol 140 <200 mg/dL [facility] Comment:Desirable Cholestero l: less than 200 mg/dLBorderline High Cholesterol: 200-239 mg/dLHigh Cholesterol: greater than 239 mg/dL LDL Cholesterol Calculated 53 <100 mg/dL [facility] Comment:Desirable LDL: less than 100 mg/dLNear Optimal/Above Optimal LDL: 110- 129 mg/dLBorderline High LDL: 130-159 mg/dLHigh LDL: 160-189 mg/dLVery High LDL: greater than or equal to 190 mg/dL HDL Cholesterol 72 >40 mg/dL [facility] Comment:Desirable HDL: great er than 40 mg/dL Note: This HDL assay may give artificially low results in patients with liver disease. Blood Venous blood specimen / Unknown 10/04/2024 9:56 AM EDT 10/04/2024 11:19 AM EDT us Enid Diaz SERVICE PROVIDER LAB BLOOD ORDERABLES Final Res ult [facility] [address] [place] [phone] [phone] * Hm Colonoscopy (04/16/2024 4:45 PM EST) us Historical Provider HEALTH MAINTENANCE Final Result from Last 3 Months or Most Recently Relevant to Health Maintenance Insurance [facility] [employer] OPT[employer] (HMO D-SNP) [facility] Care Teams Digital Account Supervisor Relationship Specialty Start Date End Date Enid Diaz FNP [address] [place] [address] PCP - General Family Medicine 01/18/22
--- OUTSIDE RECORDS SUMMARY | 2025-03-31 14:10 | XMS_ITS | Encounter Summary ---
Author Organization [employer] Address [address] [facility] [address] [place] [address] Care Team Providers Care Ada Accommodation Consultant Name Role Phone Enid Diaz Primary Care Provider [phone] Reason for Visit * Reason Comments Med Refill Encounter Details Date Type Department Care Team ([facility] st Contact Info) Description 12/03/[address] [facility] MED[facility] [address] [place] [phone] Enid Diaz FNP [address] [place] [address] Erectile dysfunction, unspecified erectile dysfunction type Social [...] PM EDT Office Visit [facility] ADULT DENTAL [address] [place] [address] Karlene Hancock documented as of this encounter Visit Diagnoses Diagnosis Erectile dysfunction, unspecified erectile dysfunction type documented in this encounter Additional Health Concerns Assessment Noted Time PHQ-9 Depression Total Score: 2 09/17/19 24 10:52 AM EDT documented as of this encounter Care Teams Ada Accommodation Consultant Relationship Specialty Start Date End Date Enid Diaz FNP [address] [place] [address] PCP - General Family Medicine 01/18/22 documented as of this encounter
--- OUTSIDE RECORDS SUMMARY | 2025-03-31 14:10 | XMS_ITS | Encounter Summary ---
Author Organization [email or web address] Address [address] [facility] [address] [place] [address] Care Team Providers Care Cycle Repairer Name Role Phone Enid Diaz GEOTHERMAL TECHNICIAN Primary Care Provider [phone] Encounter Details Date Type Department Care Team ([facility] st Contact Info) Description 05/05/[address] [facility] [address] [place], [place] [phone] Provider, MD Harvey Social History Tobacco Use [...] Description 08/18/2025 1:00 PM EDT Office Visit [facility] ADULT DENTAL [address] [place] [address] Karlene Hancock documented as of this encounter [...] documented as of this encounter Care Teams Cycle Repairer Relationship Specialty Start Date End Date Enid Diaz FNP [address] [place] [address] PCP - General Family Medicine 01/18/22 documented as of this encounter
--- OUTSIDE RECORDS SUMMARY | 2025-03-31 14:10 | XMS_ITS | Encounter Summary ---
Author Organization [facility] Address [address] [place] [address] [address] [place] [address] Care Team Providers Care Physical Therapist Clinic Director Name Role Phone Enid Diaz Primary Care Provider [phone] Encounter Details Date Type Department Care Team (Latest Contact Info) Description 12/10/2018 Abstract [facility] Dental, Provider, DDS Social History Tobacco [...] Description 08/18/2025 1:00 PM EDT Office Visit [facility]ULT [facility] [address] [place] [address] Karlene Hancock documented as of this encounter Visit Diagnoses Not on filedocumented in this encounter Care Teams Physical Therapist Clinic Director Relationship Specialty Start Date End Date Enid Diaz FNP [address] [place] [address] PCP - General Family Medicine 01/18/22 documented as of this encounter
--- OUTSIDE RECORDS SUMMARY | 2025-03-31 14:10 | XMS_ITS | Encounter Summary ---
Author Organization [employer] Address [address] [facility] [address]t [place] [address] Care Team Providers Care Mechanical Estimator Name Role Phone Enid Diaz Primary Care Provider [phone] Reason for Visit * Reason Comments Med Refill Encounter Details Date Type Department Care Team ([facility] st Contact Info) Description 04/29/2023 Refill [facility] MEDICINE [address] [place] [address] Enid Diaz FNP [address] [place] [address] Hypothyroidism, unspecified type Social History Tobacco Use [...] Please ask him to come to the [facility] to complete blood work at his convenience, thank you! documented in this encounter Plan of Treatment Upcoming Encounters Date Type Department Care Team (Late st Contact Info) Description 08/18/2025 1:00 PM EDT Office Visit [facility] ADULT DENTAL [address] [place] [address] Karlene Hancock documented as of this encounter Procedures Procedure Name Priority Date/Time Associated Diagnosis Comments TSH W/REFLEX TO FT4 Routine 05/01/2023 9 :25 AM EST Hypothyroidism, unspecified type documented in this encounter Results * TSH W/Reflex to FT4 (05/01/2023 9:25 AM EST) TSH reflex Free T4 0.62 0.32 - 4.0 uIU/mL [facility] Blood 05/01/2023 9:25 AM EST 05/01/2023 11:13 AM EST us Enid MAYS LAB BLOOD ORDERABLES Final Res ult [facility] [address] [place] [address] [phone] documented in this encounter Visit Diagnoses Diagnosis Hypothyroidism, unspecified type documented in this encounter Additional Health Concerns Assessment Noted Time PHQ-9 Depression Total Score: 0 05/21/20 22 3:26 PM EST documented as of this encounter Care Teams Mechanical Estimator Relationship Specialty Start Date End Date Enid Diaz FNP [address] [place] [address] PCP - General Family Medicine 01/18/22 documented as of this encounter
--- OUTSIDE RECORDS SUMMARY | 2025-03-31 14:10 | XMS_ITS | Encounter Summary ---
Author Organization [employer] Address [address] [facility] 7[address] [place] [address] Care Team Providers Care Rate Quoting Operator Name Role Phone Enid Diaz DAVON Primary Care Provider [phone] Encounter Details Date Type Department Care Team (Late st Contact Info) Description 03/31/2025 Orders Only GENERIC EXTERNAL DATA [...] Description 08/18/2025 1:00 PM EDT Office Visit [facility] ADULT DENTAL [address] [place] [address] Karlene Hancock documented as of this encounter Procedures Procedure Name Priority Date/Time Associated Diagnosis Comments PTH, INTACT WITHOUT CALCIUM Routine 03/31/2025 11:28 AM EDT BASIC METABOLIC PANEL Routine 03/31/2025 11:28 AM EDT documented in this encounter Results * (ABNORMAL) PTH, Intact Without Calcium (03/31/2025 11:28 AM EDT) Parathyroid Hormone, Intact 97.4(H) 8.7 - 77.1 pg/mL [facility] 03/31/2025 11:2 8 AM EDT 03/31/2025 11:28 AM EDT us Generic External Data Provider LAB BLOOD ORDERAB LES Final Result [facility] [address] [place] [phone] * (ABNORMAL) Basic Metabolic Panel (03/31/2025 11:28 AM EDT) Sodium 143 135 - 145 mmol/L [facility] Potassium 4.3 3.3 - 5.1 mmol/L [facility] Chloride 110(H) 96 - 108 mmol/L [facility] Carbon Dioxide 28 22 - 29 mmol/L [facility] Anion Gap 9(L) 12 - 20 [facility] Urea Nitrogen (BUN) 15 9 - 16 mg/dL [facility] Creatinine, Serum 1.21 0.5 - 1.4 mg/dL [facility] Estimated Glomerular Filt Rate 59 [facility] Comment:Chronic Kidney Disea se: Estimated GFR < 60 mL/min/[id number] Kidney Disease: Estimated GFR < 15 mL/min/1.73m2 Glucose 212(H) 60 - 115 mg/dL [facility] Calcium 9.7 8.4 - 10.2 mg/dL [facility] 03/31/2025 11:2 8 AM EDT 03/31/2025 11:28 AM EDT us Generic External Data Provider LAB BLOOD ORDERAB LES Final Result Performing Organization Address City/State/[facility] Co de Phone Number LABS [address] [place] [phone] documented in this encounter Visit Diagnoses Not on filedocumented in this encounter Additional Health Concerns Assessment Noted Time PHQ-9 Depression Total Score: 0 01/13/20 25 9:41 AM EDT documented as of this encounter Care Teams Rate Quoting Operator Relationship Specialty Start Date End Date Enid Diaz FNP [address] [place] [address] PCP - General Family Medicine 01/18/22 documented as of this encounter
--- OUTSIDE RECORDS SUMMARY | 2025-03-31 14:10 | XMS_ITS | Encounter Summary ---
Author Organization [employer] Address [address] [facility] [address] [place] [address] Care Team Providers Care Engineer Automated Equipment Name Role Phone Eind Diaz MATH INSTRUCTOR Primary Care Provider [phone] Encounter Details Date Type Department Care Team (Late st Contact Info) Description 08/30/2022 Orders Only [facility] PEDS [address] [place] [address] Winnie Harris LPN Social History Tobacco Use [...] Description 08/18/2025 1:00 PM EDT Office Visit [facility] ADULT DENTAL [address] [place] [address] Karlene Hancock documented as of this encounter Visit Diagnoses Not on filedocumented in this encounter Additional Health Concerns Assessment Noted Time PHQ-9 Depression Total Score: 0 05/21/20 3:26 PM EST documented as of this encounter Care Teams Engineer Automated Equipment Relationship Specialty Start Date End Date Enid Diaz FNP [address] [place] [phone] PCP - General Family Medicine 01/18/22 documented as of this encounter
== END 2025-03-31 11:19 | disposition home or self-care (01) ==
LOC: HO.LAB 11:18
PROVIDERS: PCP Registered Nurse; Visit Provider Internal Medicine Hypertension Specialist
DX: I12.9 Hypertensive chronic kidney disease with stage 1 through stage 4 chronic kidney disease, or unspecified chronic kidney disease (principal); N18.9 Chronic kidney disease, unspecified
CPT/HCPCS: 36415; 80048; 83970

== ENCOUNTER → 2025-04-04 08:41 | Outpatient (REF) | payer OTHER, SELFPAY ==
--- NOTE | ~2025-04-04 | NM_ITS ---
EXAMINATION: NM BONE SCAN WHOLE BODY HISTORY: Z96.643 - Presence of artificial hip joint, bilateral. TECHNIQUE: A total body bone scan was performed following the intravenous administration of 30 mCi technetium 99m-MDP. COMPARISON: Comparison is made with the prior examination dated 07/01/2019. Correlation is also made to plain films of the pelvis and right hip dated 03/04/2025. FINDINGS: There are photopenic defects at both hips consistent with joint arthroplasties. No abnormal uptake is seen in either hip to suggest loosening. There is mild increased asymmetric uptake involving the right AC joint and the right sternoclavicular joint, consistent with osteoarthritis. Mild increased uptake at the knees and in the right midfoot are consistent with degenerative change. There are foci of increased activity at the T11 and T8 vertebral levels on the right consistent with degenerative change. There is normal bilateral renal uptake. NM/NM bone scan whole body IMPRESSION: Status post bilateral total hip arthroplasty. No abnormal uptake is seen to suggest loosening. Electronically signed by: Venu Hudson MD 04/04/2025 02:28 PM JACKELYN
--- OUTSIDE RECORDS SUMMARY | 2025-04-04 09:13 | XMS_ITS | Encounter Summary ---
Author Organization [employer] Address [address] [facility] [address] [place] [address] Care Team Providers Care Keno Manager Name Role Phone Enid Diaz DAVON Primary Care Provider [phone] Encounter Details Date Type Department Care Team [...] Team (Late st Contact Info) Description 08/18/2025 12:45 PM EDT Office Visit [facility] ADULT DENTAL [address] [place] [address] Karlene Hancock documented as of this encounter Procedures Procedure Name Priority Date/Time Associated Diagnosis Comments PTH, INTACT WITHOUT CALCIUM Routine 03/31/2025 11:28 AM EDT BASIC METABOLIC PANEL Routine 03/31/2025 11:28 AM EDT documented in this encounter Results * (ABNORMAL) PTH, Intact Without Calcium (03/31/2025 11:28 AM EDT) Parathyroid Hormone, Intact 97.4(H) 8.7 - 77.1 pg/mL [facility] 03/31/2025 11:2 8 AM EDT 03/31/2025 11:28 AM EDT us Generic External Data Provider LAB BLOOD ORDERAB LES Final Result [facility] [address] [place] [phone] * (ABNORMAL) Basic Metabolic Panel (03/31/2025 11:28 AM EDT) Sodium 143 135 - 145 mmol/L [facility] Potassium 4.3 3.3 - 5.1 mmol/L [facility] Chloride 110(H) 96 - 108 mmol/L [facility] Carbon Dioxide 28 22 - 29 mmol/L [facility] Anion Gap 9(L) 12 - 20 [facility] Urea Nitrogen (BUN) 15 9 - 16 mg/dL [facility] Creatinine, Serum 1.21 0.5 - 1.4 mg/dL [facility] Estimated Glomerular Filt Rate 59 [facility] Comment:Chronic Kidney Disea se: Estimated GFR < 60 mL/min/[id number] Kidney Disease: Estimated GFR < 15 mL/min/1.73m2 Glucose 212(H) 60 - 115 mg/dL [facility] Calcium 9.7 8.4 - 10.2 mg/dL [facility] 03/31/2025 11:2 8 AM EDT 03/31/2025 11:28 AM EDT us Generic External Data Provider LAB BLOOD ORDERAB LES Final Result Performing Organization Address City/State/[facility] Co de Phone Number [facility] [address] [place] [phone] documented in this encounter Visit Diagnoses Not on filedocumented in this encounter Additional Health Concerns Assessment Noted Time PHQ-9 Depression Total Score: 0 01/13/20 25 9:41 AM EDT documented as of this encounter Care Teams Keno Manager Relationship Specialty Start Date End Date Enid Diaz FNP [address] [place] [address] PCP - General Family Medicine 01/18/22 documented as of this encounter
--- OUTSIDE RECORDS SUMMARY | 2025-04-04 09:13 | XMS_ITS | Encounter Summary ---
Author Organization [employer] Address [address] [facility] [address] [place] [address] Care Team Providers Care Non Destructive Testing Supervisor Name Role Phone Enid Diaz Primary Care Provider [phone] Reason for Visit * Reason Comments Med Refill Encounter Details Date Type Department Care Team ([facility] st Contact Info) Description 04/29/2023 Refill [facility] MEDICINE [address] [place] [address] Enid Diaz FNP [address] [place] [address] Hypothyroidism, unspecified type Social History Tobacco Use [...] Please ask him to come to the [facility] to complete blood work at his convenience, thank you! documented in this encounter Plan of Treatment Upcoming Encounters Date Type Department Care Team (Late st Contact Info) Description 08/18/2025 12:45 PM EDT Office Visit [facility] ADULT DENTAL [address] [place] [address] Karlene Hancock documented as of this encounter Procedures Procedure Name Priority Date/Time Associated Diagnosis Comments TSH W/REFLEX TO FT4 Routine 05/01/2023 9 :25 AM EST Hypothyroidism, unspecified type documented in this encounter Results * TSH W/Reflex to FT4 (05/01/2023 9:25 AM EST) TSH reflex Free T4 0.62 0.32 - 4.0 uIU/mL [facility] Blood 05/01/2023 9:25 AM EST 05/01/2023 11:13 AM EST us Enid MAYS LAB BLOOD ORDERABLES Final Res ult [facility] [address] [place] [phone] documented in this encounter Visit Diagnoses Diagnosis Hypothyroidism, unspecified type documented in this encounter Additional Health Concerns Assessment Noted Time PHQ-9 Depression Total Score: 0 05/21/20 22 3:26 PM EST documented as of this encounter Care Teams Non Destructive Testing Supervisor Relationship Specialty Start Date End Date Enid Diaz FNP [address] [place] [address] PCP - General Family Medicine 01/18/22 documented as of this encounter
--- OUTSIDE RECORDS SUMMARY | 2025-04-04 09:13 | XMS_ITS | Encounter Summary ---
Author Organization [employer] Address [address] [facility] [address] [place] [address] Care Team Providers Care Associate Professor Of Education Name Role Phone Enid Diaz Primary Care Provider [phone] Reason for Visit * Reason Comments Med Refill Encounter Details Date Type Department Care Team ([facility] st Contact Info) Description 12/03/2023 Refill [facility] MEDICINE [address] [place] [address] Enid Diaz FNP [address] [place] [address] Erectile dysfunction, unspecified erectile dysfunction type Social [...] Description 08/18/2025 12:45 PM EDT Office Visit [facility] ADULT DENTAL [address] [place] [address] Karlene Hancock documented as of this encounter Visit Diagnoses Diagnosis Erectile dysfunction, unspecified erectile dysfunction type documented in this encounter Additional Health Concerns Assessment Noted Time PHQ-9 Depression Total Score: 2 09/17/19 24 10:52 AM EDT documented as of this encounter Care Teams Associate Professor Of Education Relationship Specialty Start Date End Date Enid Diaz FNP [address] [place] [address] PCP - General Family Medicine 01/18/22 documented as of this encounter
--- OUTSIDE RECORDS SUMMARY | 2025-04-04 09:13 | XMS_ITS | Clinical Summary ---
Author Organization [employer] Address [address] [place] [address] 7t [place] [address] Care Team Providers Care Offshore Diver Name Role Phone Enid Diaz TITLE CLOSER Primary Care Provider [phone] Allergies Active Allergy Reactions Criticality Noted Date [...] of tubular adenoma of colon Followed by [facility] general surgery-Dr. Bowling Colonoscopy April 2024. Removed [...] maintenance 04/09/2023 Overview (07/08/2024): Colonoscopy: 04/16/24 at [facility] (Dr. Bowling). Multiple tubular adenomas. Next due: [...] post arthroplasty chronic seroma. - Referral to [facility] Ortho for further eval placed on 01/12/25. Assessment & Plan (04/09/2023 5:15 PM EST): -May use tramadol sparingly (rx 10-15 tablets/month). Reviewed med safety and SE. -Consider referral to [facility] program if need for tramadol persists Assessment & Plan (12/04/2022 6:07 PM EDT): -Tramadol 50mg daily PRN sent to pharmacy - shared decision making to use as infrequently as possible, while still maintaining ability to function in ADLs. (plan for 15 tablets total/month). If benefits > risks and pt continues to request refill of med, will consider [facility] contract -Reviewed med safety and SE. Has [...] to request refill of med, will consider [facility] contract -Reviewed med safety and SE. Narcan [...] w PCP Stage 3 chronic kidney disease ([facility]) 021 Assessment & Plan (07/08/2024 10:44 AM EST): Continue following with nephrology- Dr. Griffith at [facility]. H/o mild hypercalcemia - following calcium and PTH Repeat BMP and microalbumin Assessment & Plan (12/17/2023 10:49 AM EDT): Continue following with nephrology- Dr. Griffith at [facility]. H/o mild hypercalcemia - following with repeat calcium and PTH on routine basis Assessment & Plan (09/21/2023 8:37 PM EDT): Continue following with nephrology- Dr. Griffith at [facility]. Per consult note Jul 2023: h/o mild hypercalcemia - following with repeat calcium and PTH Assessment & Plan (08/06/2023 4:47 PM EST): Continue following with nephrology- Dr. Griffith at [facility] Assessment & Plan (12/04/2022 6:04 [...] DEPARTMENT Provider, Generic External Data 03/10/2025 Refill [facility] [address] [place] [address] Enid Diaz FNP 02/04/2025 Refill [facility] [address] [place] [address] Enid Diaz FNP Muscle spasm 01/24/2025 11:00 AM EDT Office Visit [facility] [address] [place] [address] Karlene Hancock Dental calculus (Primary Dx); Dental staining 01/19/2025 Telephone [facility] [address] [place] [address] Scarlet Hancocksa 01/12/2025 9:45 AM EDT Office Visit [facility] [address] [place] [phone] Enid Diaz FNP Abnormal finding on imaging (Primary Dx); History of bilateral hip replacements; Hematuria, unspecified type; Muscle spasm 01/12/2025 Travel 01/11/2025 Telephone [facility] [address] [place] [phone] Enid Diaz FNP CHART PREP 01/05/2025 Orders [...] Description 08/18/2025 12:45 PM EDT Office Visit [facility] [address] [facility], [place] [phone] Karlene Hancock Health Maintenance Due Date Last [...] Intact 97.4(H) 8.7 - 77.1 pg/mL [facility] 03/31/2025 11:2 8 AM EDT 03/31/2025 11:28 AM EDT us Generic External Data Provider LAB BLOOD ORDERAB LES Final Result [facility] [address] [place] [phone] * (ABNORMAL) Basic Metabolic Panel (03/31/2025 11:28 AM EDT) Only the most recent of2 resultswithin the time period is included. Sodium 143 135 - 145 mmol/L [facility] Potassium 4.3 3.3 - 5.1 mmol/L [facility] Chloride 110(H) 96 - 108 mmol/L [facility] Carbon Dioxide 28 22 - 29 mmol/L [facility] Anion Gap 9(L) 12 - 20 [facility] Urea Nitrogen (BUN) 15 9 - 16 mg/dL [facility] Creatinine, Serum 1.21 0.5 - 1.4 mg/dL [facility] Estimated Glomerular Filt Rate 59 [facility] Comment:Chronic Kidney Disea se: Estimated GFR < 60 mL/min/1.44b6Twafza Kidney Disease: Estimated GFR < 15 mL/min/1.73m2 Glucose 212(H) 60 - 115 mg/dL [facility] Calcium 9.7 8.4 - 10.2 mg/dL [facility] 03/31/2025 11:2 8 AM EDT 03/31/2025 11:28 AM EDT us Generic External Data Provider LAB BLOOD ORDERAB LES Final Result Performing Organization Address City/State/[facility] Co de Phone Number [facility] [address] [place] [address] [phone] * CT Abdomen Pelvis w/ Contrast (01/05/2025 3:23 AM EDT) Anatomical Region Laterality Modality Body, Pelvis, Abdomen Computed T omography 01/05/2025 3:23 AM EDT Narrative 01/05/2025 3:25 AM EDT [place] [address] [address] Scan Report Signed Patient: Jose Angel Haas MR#: [id number] [birth year] : 1955 Acct:[id number] Age/Sex: 69 / M ADM Date: 01/04/25 Loc: .ED Attending Dr: Ordering Physician: Santos Ramos PA-C Date of Service: 01/05/25 Procedure(s): CT abdomen pelvis w IV con Accession Number(s): [id number] cc: Santos Ramos PA-C; Enid Diaz TITLE CLOSER Report Number: [id number]: Total DLP = 635.00 mGy-cm CLINICAL HISTORY: [...] in OV> 01/05/25323 DD/ 2 TD/TT: 01/05/25322 Lacquer Machine Feeder: Procedure Note Donotuseinterpreter, Image - 01/05/[address] [place] [address] [address] Scan Report Signed Patient: Jose Angel HaasMR#: [id number] [birth year] : 3Acct:[id number] Age/Sex: 69 / MADM Date: 01/04/25 Loc: HO.ED Attending Dr: Ordering Physician: Santos Ramos PA-C Date of Service: 01/05/25 Procedure(s): CT abdomen pelvis w IV con Accession Number(s): [id number] cc: Santos Ramos PA-C; Enid Diaz TITLE CLOSER Report Number: [id number]: Total DLP = 635.00 mGy-cm CLINICAL HISTORY: [...] OV> 01/05/25 0324 DD/ 2 TD/TT: 01/05/25322 Lacquer Machine Feeder: us [facility] External Provider IMG CT PROCEDURES Final Result * (ABNORMAL) Urinalysis, Complete, with Reflex to Culture (01/05/2025 1:06 AM EDT) Color Urine Yellow [facility] Appearance Urine Clear [facility] PH 5.5 5.0 - 9.0 [facility] Glucose Urine UA Negative Negative mg/dL [facility] Urine Blood Trace(A) Negative [facility] Specific [place] - Urine 1.015 1.005 - 1.025 [facility] Urine Protein Negative Neg-Trace mg/dL [facility] Urine Ketones Negative Negative mg/dL [facility] Nitrite Urine Negative Negative [facility] Leukocyte Esterase Urine Negative Negative [facility] RBC Urine 0-2 0 - 2 /HPF [facility] Urine WBC 0-5 0 - 5 /HPF [facility] Urine Squamous Epithelial Cell 0-2 0 - 2 /HPF [facility] Urine Bacteria None Seen None Seen [facility] Hyaline Casts, Urine 0-2 0 - 2 /LPF [facility] 01/05/2025 1:06 AM EDT 01/05/2025 1:11 AM EDT Narrative [facility] - 01/05/2025 1:32 AM EDT Urine, Clean Catch Generic External Data Provider LAB URINE ORDERAB LES Final Result Performing Organization Address [facility] Co de Phone Number [facility] [address] [place] [phone] * (ABNORMAL) Urinalysis w/reflex microscopic (01/05/2025 1:06 AM EDT) Color Urine Yellow [facility] Appearance Urine Clear [facility] PH 5.5 5.0 - 9.0 [facility] Glucose Urine UA Negative Negative mg/dL [facility] Urine Blood Trace(A) Negative [facility] Specific [place] - Urine 1.015 1.005 - 1.025 [facility] Urine Protein Negative Neg-Trace mg/dL [facility] Urine Ketones Negative Negative mg/dL [facility] Nitrite Urine Negative Negative [facility] Leukocyte Esterase Urine Negative Negative [facility] 01/05/2025 1:06 AM EDT 01/05/2025 1:11 AM EDT Narrative [facility] - 01/05/2025 1:29 AM EDT Urine, Clean Catch us Generic External Data Provider LAB URINE ORDERAB LES Final Result Performing Organization Address City/[facility]/ZIP Co de Phone Number [facility] [address] [place] [phone] * XR Hip left with Pelvis 1 view (01/04/2025 9:30 PM EDT) Anatomical Region Laterality Modality Lower Extremities, Hip Bilateral Radiograp hic Imaging 01/04/2025 9:30 PM EDT Narrative 01/04/2025 9:31 PM EDT [place] [address] XRay Report Signed Patient: Jose Angel Haas MR#: [id number] [birth year] : 1955 Acct:[id number] Age/Sex: 69 / M ADM Date: 01/04/25 Loc: HO.ED Attending Dr: Ordering Physician: Lisa Mclain Date of Service: 01/04/25 Procedure(s): XR hip LT w PEL1V Accession Number(s): [id number] cc: Enid DiazP; Lisa Mclain CLINICAL HISTORY: [...] hip arthroplasty hardware also redemonstrated in the [id number]. Portions of the pelvis obscured without acute [...] in OV> 01/04/252130 DD/ 29 TD/TT: 01/04/252129 Lacquer Machine Feeder: Procedure Note Donotuseinterpreter, Image - 01/04/[address] [address] XRay Report Signed Patient: Jose Angel HaasMR#: [id number] 80 : 1955cct:[id number] Age/Sex: 69 / MADM Date: 01/04/25 Loc: HO.ED Attending Dr: Ordering Physician: Lisa Mclain Date of Service: 01/04/25 Procedure(s): XR hip LT w PEL1V Accession Number(s): [id number] cc: Enid Diaz; Lisa Mclain CLINICAL HISTORY: [...] hip arthroplasty hardware also redemonstrated in the [id number]. Portions of the pelvis obscured without acute [...] in OV> 01/04/252130 DD/ 29 TD/TT: 01/04/252129 Lacquer Machine Feeder: [facility] External Provider IMG XR PROCEDURES Edited Result - Final * (ABNORMAL) CBC auto differential (01/04/2025 8:52 PM EDT) White Blood Count 11.8(H) 4.8 - 10.8 X10*3/uL [facility] Red Blood Count 4.45(L) 4.60 - 5.80 X10*6/uL [facility] Hemoglobin 15.4 14.0 - 18.0 g/dl [facility] Hematocrit 44.4 42.0 - 52.0 % [facility] Mean Corpuscular Volume 99.8(H) 80.0 - 98.0 fL [facility] Mean Corpuscular Hemoglobin 34.6(H) 27.0 - 33.0 pg [facility] Mean Corpuscular HGB Conc 34.7 31.0 - 36.0 g/dl [facility] Red Cell Distribution Width 12.2 11.0 - 16.0 % [facility] Platelet Count 198 160 - 400 X10*3/uL [facility] Mean Platelet Volume 10.9 9.4 - 12.4 fL [facility] Neutrophils Percent Auto 56.6 45 - 73 % [facility] Imm Gran Pct Auto 0.3 0.0 - 0.4 % [facility] Lymphocytes Percent Auto 33.8 20 - 40 % [facility] Monocytes Percent Auto 6.5 2 - 11 % [facility] Eosinophils Percent Auto 2.0 0 - 4 % [facility] Basophils Percent Auto 0.8 0 - 2 % [facility] NRBC Pct Auto 0.0 0.0 - 0.2 /100WBC [facility] Neutrophils Absolute Auto 6.7 2.0 - 8.3 x10*3/uL [facility] Imm Gran Abs Auto 0.04(H) 0.00 - 0.03 X10*3/uL [facility] Lymphocytes Absolute Auto 4.0 1.2 - 4.9 X10*3/uL [facility] Monocytes Absolute Auto 0.8 0.1 - 1.2 X10*3/uL [facility] Eosinophils Absolute Auto 0.2 0.0 - 0.4 X10*3/uL [facility] Basophils Absolute Auto 0.1 0.0 - 0.2 X10*3/uL [facility] NRBC Abs Auto 0.000 0.0 - 0.012 X10*3/uL [facility] 01/04/2025 8:52 PM EDT 01/04/2025 8:55 PM EDT us Generic External Data Provider LAB BLOOD ORDERAB LES Final Result [facility] [address] [place] [address] [phone] * Magnesium (01/04/2025 8:52 PM EDT) Pathologist [facility] Magnesium 2.0 1.6 - 2.6 mg/dL [facility] 01/04/2025 8:52 PM EDT 01/04/2025 8:55 PM EDT Generic External Data Provider LAB BLOOD ORDERAB LES Final Result Performing Organization Address [facility] Co de Phone Number [facility] [address] [place] [phone] * Hepatic Function Panel (01/04/2025 8:52 PM EDT) [facility] Bilirubin, Total 0.6 0.0 - 1.0 mg/dL [facility] Bilirubin, Direct 0.2 0.0 - 0.5 mg/dL [facility] Aspartate Amino Transferase 27 5 - 37 U/L [facility] Alanine Aminotransferase 31 0 - 40 U/L [facility] Total Protein 7.5 6.5 - 8.0 g/dL [facility] Albumin Level 4.4 3.5 - 5.0 g/dL [facility] Alkaline Phosphatase 66 39 - 117 U/L [facility] 01/04/2025 8:52 PM EDT 01/04/2025 8:55 PM EDT Generic External Data Provider LAB BLOOD ORDERAB LES Final Result Performing Organization Address [facility] Co de Phone Number [facility] [address] [place] [phone] * Hepatitis C Viral RNA, Quantitative, Real-Time PCR (10/04/2024 9:56 AM EDT) [facility] Hepatitis C Viral Load <15 NOT DETECTED NOT DETECTED IU/mL [facility] HCV Log PCR <1.18 NOT DETECTED NOT DETECTED Log IU/mL [facility] Comment:For additional infor martha, please refer tohttp://education.questdiagnostics.com/faq/ERY42k9(This link is being provided for informational/educational purposes only.)THIS TEST WAS PERFORMED AT:[facility] [place] [phone] REYNOLDS MD Blood 10/04/2024 9:56 AM EDT 10/04/2024 11:18 AM EDT us Enid Diaz TITLE CLOSER LAB BLOOD ORDERABLES Final Res ult Performing Organization Address [facility] Co de Phone Number [facility] [address] [place] [address] [phone] * Lipid Panel, Standard (10/04/2024 9:56 AM EDT) Triglycerides 78 <150 mg/dL [facility] Comment:Desirable Triglyceri de: less than 150 mg/dLBorderline High Triglyceride 150-199 mg/dLHigh Triglyceride: 200-499 mg/dLVery High Triglyceride: greater than or equal to 5OO mg/dL Cholesterol 140 <200 mg/dL [facility] Comment:Desirable Cholestero l: less than 200 mg/dLBorderline High Cholesterol: 200-239 mg/dLHigh Cholesterol: greater than 239 mg/dL LDL Cholesterol Calculated 53 <100 mg/dL [facility] Comment:Desirable LDL: less than 100 mg/dLNear Optimal/Above Optimal LDL: 110- 129 mg/dLBorderline High LDL: 130-159 mg/dLHigh LDL: 160-189 mg/dLVery High LDL: greater than or equal to 190 mg/dL HDL Cholesterol 72 >40 mg/dL [facility] Comment:Desirable HDL: great er than 40 mg/dL Note: This HDL assay may give artificially low results in patients with liver disease. Blood Venous blood specimen / Unknown 10/04/2024 9:56 AM EDT 10/04/2024 11:19 AM EDT us Enid Diaz TITLE CLOSER LAB BLOOD ORDERABLES Final Res ult [facility] [address] [place] [address] [phone] * Hm Colonoscopy (04/16/2024 4:45 PM EST) us Historical Provider HEALTH MAINTENANCE Final Result from Last 3 Months or Most Recently Relevant to Health Maintenance Insurance [facility] CORRECTION OPTIONS (HMO D-SNP) D[facility]AL [facility] Care Teams Offshore Diver Relationship Specialty Start Date End Date Enid Diaz FNP [address] [place] [address] PCP - General Family Medicine 01/18/22
--- OUTSIDE RECORDS SUMMARY | 2025-04-04 09:13 | XMS_ITS | Encounter Summary ---
Author Organization [employer] Address [address] [facility] [address]t [place] [address] Care Team Providers Care Fly Finisher Name Role Phone Enid Diaz RETAIL SALESPERSON Primary Care Provider [phone] Encounter Details Date Type Department Care Team (Late st Contact Info) Description 08/30/2022 Orders Only [facility] [address] [place] [address] Winnie Harris LPN Social History Tobacco Use [...] Description 08/18/2025 12:45 PM EDT Office Visit [facility] ADULT DENTAL [address] [place] [address] Karlene Hancock documented as of this encounter Visit Diagnoses Not on filedocumented in this encounter Additional Health Concerns Assessment Noted Time PHQ-9 Depression Total Score: 0 05/21/20 3:26 PM EST documented as of this encounter Care Teams Fly Finisher Relationship Specialty Start Date End Date Enid Diaz FNP [address] [place] [phone] PCP - General Family Medicine 01/18/22 documented as of this encounter
--- OUTSIDE RECORDS SUMMARY | 2025-04-04 09:13 | XMS_ITS | Encounter Summary ---
Author Organization [facility] Address [address] [place] [address] 7t [place] [address] Care Team Providers Care Acura Sales Consultant Name Role Phone Enid Diaz Primary Care Provider [phone] Encounter Details Date Type Department Care Team (Latest Contact Info) Description 12/10/2018 Abstract [facility] CONVERSIONS Dental, Provider, DDS Social History [...] 12:45 PM EDT Office Visit [facility] ADULT DENTAL [address] [place] [address] Karlene Hancock documented as of this encounter Visit Diagnoses Not on filedocumented in this encounter Care Teams Acura Sales Consultant Relationship Specialty Start Date End Date Enid Diaz FNP [address] [place] [address] PCP - General Family Medicine 01/18/22 documented as of this encounter
--- OUTSIDE RECORDS SUMMARY | 2025-04-04 09:13 | XMS_ITS | Encounter Summary ---
Author Organization [employer] [facility] Address [address] [facility] [address]t [place] [address] Care Team Providers Care Music Executive Name Role Phone Enid Diaz MOLD TOOLING TECHNICIAN Primary Care Provider Reason for Visit * Reason Comments Med Refill Encounter Details Date Type Department Care Team (Late st Contact Info) Description 02/11/[address] [facility] [address] [place] [address] Name, MD Josef [address] [place] [address] Hypertension, unspecified type Social History Tobacco Use [...] Description 08/18/2025 12:45 PM EDT Office Visit [facility] ADULT DENTAL [address] [place] [address] Karlene Hancock documented as of this encounter Visit Diagnoses Diagnosis Hypertension, unspecified type documented in this encounter Additional Health Concerns Assessment Noted Time PHQ-9 Depression Total Score: 0 05/21/20 3:26 PM EST documented as of this encounter Care Teams Music Executive Relationship Specialty Start Date End Date Enid Diaz FNP [address] [place] [address] PCP - General Family Medicine 01/18/22 documented as of this encounter
--- OUTSIDE RECORDS SUMMARY | 2025-04-04 09:13 | XMS_ITS | Encounter Summary ---
Author Organization [employer] Address [address] [facility] [address] [place] [address] Care Team Providers Care Meat Boner And Slicer Name Role Phone Enid Diaz Primary Care Provider [phone] Reason for Visit * Reason Comments Med Refill Encounter Details Date Type Department Care Team ([facility] st Contact Info) Description 02/04/2025 Refill [facility] [address] [place] [address] Enid Diaz FNP [address] [place] [address] Muscle spasm Social History Tobacco Use Types [...] Description 08/18/2025 12:45 PM EDT Office Visit [facility] ADULT DENT[facility] [address] [place] [address] Karlene Hancock documented as of this encounter Visit Diagnoses Diagnosis Muscle spasm Spasm of muscle documented in this encounter Additional Health Concerns Assessment Noted Time PHQ-9 Depression Total Score: 0 01/13/20 25 9:41 AM EDT documented as of this encounter Care Teams Meat Boner And Slicer Relationship Specialty Start Date End Date Enid Diaz FNP [address] [place] [address] PCP - General Family Medicine 01/18/22 documented as of this encounter
--- OUTSIDE RECORDS SUMMARY | 2025-04-04 09:13 | XMS_ITS | Encounter Summary ---
Author Organization [employer] Address [address] [facility] [address] [place] [address] Care Team Providers Care Rail Car Unloader Name Role Phone nEid Diaz HEALTH PROGRAM MANAGER Primary Care Provider [phone] Encounter Details Date Type Department Care Team ([facility] st Contact Info) Description 05/05/2024 Orders Only [facility] MED & PEDS [address] [place], [place] [phone] Provider, MD Harvey Social History Tobacco Use [...] Office Visit [facility] ADULT DENTAL [address] [place] [address] Karlene Hancock documented as of this encounter [...] documented as of this encounter Care Teams Rail Car Unloader Relationship Specialty Start Date End Date Enid Diaz FNP [address] [place] [address] PCP - General Family Medicine 01/18/22 documented as of this encounter
== END ==
LOC: HO.NUCMED 08:41
PROVIDERS: PCP Registered Nurse; Visit Provider Physician Assistant
DX: I12.9 Hypertensive chronic kidney disease with stage 1 through stage 4 chronic kidney disease, or unspecified chronic kidney disease (principal); N18.2 Chronic kidney disease, stage 2 (mild); M25.551 Pain in right hip; M25.552 Pain in left hip; Z96.643 Presence of artificial hip joint, bilateral
CPT/HCPCS: 78306; 99212; A9503

== ENCOUNTER → 2025-04-04 08:43 | Outpatient (BNV) | payer OTHER, SELFPAY | PROVIDERS: PCP Registered Nurse; Visit Provider Radiology Diagnostic Radiology | DX: Z96.643 Presence of artificial hip joint, bilateral (principal) | CPT/HCPCS: 78306 ==

== ENCOUNTER 2025-04-04 11:46 | Outpatient (AMB) | payer OTHER, SELFPAY ==
[2025-04-04 11:51] VITALS: BP 136/74; PULSE 92; O2SAT 98; BMI 31.5
--- NOTE | 2025-04-04 11:51 | HO.NEPHOV ---
Vital Signs 04/04/25 11:51 Height 5 ft 6 in Weight 195 lb BMI 31.5 BP 136/74 Blood Pressure Location Lt brachial Position Sitting Pulse 92 Pulse Source Pulse Oximeter Pulse Oximetry (%) 98 Oxygen Delivery Method Room Air Intake Visit Reasons: 6 MO FU confirmed Manager Managed Backup Services Required: Yes Manager Managed Backup Services Name: Jaclyn [id number] Accompanied by: Self / Same As Patient Allergies ibuprofen (From MOTRIN) Allergy (Intermediate, Verified 04/25/25 11:01) GI PROBLEM, GI upset dicloxacillin Allergy (Unknown, Verified 04/25/25 11:01) Unknown Penicillins (PENICILLINS) Allergy (Unknown, Verified 04/25/25 11:01) UNKNOWN Medication List - Last Reconciled 04/04/25 by Nacho Carmona MD amlodipine 2.5 mg PO DAILY cholecalciferol (vitamin D3) (Vitamin D3) 50 mcg PO DAILY cyclobenzaprine 10 mg PO TID PRN levothyroxine 112 mcg PO Q2D levothyroxine 125 mcg PO Q2D loratadine 10 mg PO DAILY PRN losartan 50 mg PO DAILY pantoprazole 40 mg PO DAILY rosuvastatin 10 mg PO BEDTIME sildenafil (Viagra) 50 - 100 mg PO DAILY PRN HPI Comments Details: Elderly man with HTN and CKD 03/30/24;Feels better. No new issues 10/05/24 : Overall doing OK Gained weight from last visit. 04/04/2025 The patient is a 70-year-old male presenting for nephrology follow-up and management of CKD The patient reports swelling in the legs for the past two to four days, primarily affecting one side. He has a history of gout, which was previously diagnosed by another physician. The patient's kidney function remains stable, with no changes in his renal parameters since the last visit. His blood pressure is well-controlled, and no adjustments to his current management plan are necessary. [facility] Medical History History of colon polyps Tubular adenoma of colon GERD (gastroesophageal reflux disease) Kidney disease High cholesterol Hypothyroid Colon abnormality Asthma History of adenomatous polyp of colon Hypertension Surgical History Hx of colonoscopy (~11/15/24) H/O colonoscopy H/O: hemorrhoidectomy Status post total hip replacement, bilateral Social History Are you a primary home care music therapist to a significant other at home: No Do you presently have visiting nurse or other home services: No Alcohol intake: current Alcohol intake frequency: 3 or more drinks per day Alcohol type: beer Patient Tobacco Use Status: Never used Tobacco Substance Use Type: Marijuana Current occupational status: disabled Physical Exam Vital Signs: Last Vital Signs Pulse 92 04/04/25 11:51 BP 136/74 04/04/25 11:51 Pulse Ox 98 04/04/25 11:51 Oxygen Delivery Method Room Air 04/04/25 11:51 BMI result Body Mass Index 31.5 Comfortable Neck supple no JVD. Lungs entry equal no rales. Heart S1-S2 heard no gallop or rub. Abdomen soft nontender. Neuro alert awake oriented. No asterixis. Extremities 1+ edema. Results Reviewed Nephrology Results: Hgb, (14.0-18.0) 15.4 g/dl 01/04/25 WBC, (4.8-10.8) 11.8 X10*3/uL H 01/04/25 Plt Count, (160-400) 198 X10*3/uL 01/04/25 Sodium, (135-145) 141 mmol/L 04/05/25 Potassium, (3.3-5.1) 4.6 mmol/L 04/05/25 Chloride, (96-108) 108 mmol/L 04/05/25 Carbon Dioxide, (22-29) 26 mmol/L 04/05/25 BUN, (9-16) 15 mg/dL 04/05/25 Creatinine, (0.5-1.4) 1.08 mg/dL 04/05/25 Calcium, (8.4-10.2) 9.7 mg/dL 04/05/25 PTH Intact, (8.7-77.1) 97.4 pg/mL H 03/31/25 Urine Protein, (Neg-Trace) Negative mg/dL 04/05/25 Assessment & Plan Assessment & Plan (1) Hypertension: Code(s): I10 - Essential (primary) hypertension Category: Medical Plan: BP well controlled Stay on low salt diet No change in meds h/o Mild hypercalcemia- stands corrected. Reason calcium 9.7 and stable. No anemia Repeat PTH marginally elevated 97. (2) CKD (chronic kidney disease): Code(s): N18.9 - Chronic kidney disease, unspecified Category: Medical Plan: Mild CKD Avoid nephrotoxins and NSAIDS Keep BP < 130/80 Orders: Orders Basic Metabolic Panel 6 Months I10 - Essential (primary) hypertension, N18.9 - Chronic kidney disease, unspecified UA and rflx microscopic 6 Months I10 - Essential (primary) hypertension, N18.9 - Chronic kidney disease, unspecified Uric Acid 6 Months I10 - Essential (primary) hypertension, N18.9 - Chronic kidney disease, unspecified Total Protein Urine Random 6 Months I10 - Essential (primary) hypertension, N18.9 - Chronic kidney disease, unspecified Creatinine Urine 6 Months I10 - Essential (primary) hypertension, N18.9 - Chronic kidney disease, unspecified Coding Level of Care Code Est Pt Level 4 (59019) Diagnoses Hypertension I10 CKD (chronic kidney disease) N18.9
--- OUTSIDE RECORDS SUMMARY | 2025-04-04 15:01 | XMS_ITS | Clinical Summary ---
Author Organization [facility] Address [address] [place] [address] Phone Care Team Providers Care Plant Health Manager Name Role Phone Arlene Wong NP Primary Care Provider [phone] Allergies Active Allergy Reactions Criticality Noted Date [...] patient's age to complete this topic Insurance [facility] [place] [id number] [facility] [place] [id number] Care Teams Plant Health Manager Relationship Specialty Start Date End Date Arlene Wong NP PCP - General 06/12/20
== END 2025-04-04 12:03 | disposition home or self-care (01) ==
LOC: HO.HKA 11:47
PROVIDERS: PCP Registered Nurse; Visit Provider Internal Medicine Hypertension Specialist
DX: I12.9 Hypertensive chronic kidney disease with stage 1 through stage 4 chronic kidney disease, or unspecified chronic kidney disease (principal); N18.9 Chronic kidney disease, unspecified
CPT/HCPCS: 99214

== ENCOUNTER 2025-04-05 08:23 | Outpatient (REF) | payer OTHER, SELFPAY ==
--- OUTSIDE RECORDS SUMMARY | 2025-04-04 18:00 | XMS_ITS | Encounter Summary ---
Author Organization [employer] Address [address] [facility] 7t [place] [address] Care Team Providers Care Cooking Teacher Name Role Phone Enid Diaz DATA ENTRY SPECIALIST Primary Care Provider [phone] Encounter Details Date Type Department Care Team ([facility] st Contact Info) Description 04/04/2025 6:00 PM EST Office Visit [facility] [address] [place] [address] Localized swelling of right foot (Primary Dx); Tinea pedis of right foot Social History Tobacco Use Types Packs/Day Years [...] AM EDT documented as of this encounter Last Filed Vital Signs Vital Sign Reading Time Taken Comments Blood Pressure 138/77 04/04/2025 6:37 PM EST Pulse 67 04/04/2025 6:37 PM EST Temperature 36.1 C (96.9 F) 04/04/2025 6:37 PM EST Respiratory Rate 17 04/04/2025 6:37 PM EST Oxygen Saturation 96% 04/04/2025 6:37 PM EST Inhaled Oxygen Concentration - - Weight 88 kg (194 lb) 04/04/2025 6:37 PM EST Height 167.6 cm (5' 6 ) 04/04/2025 6:37 PM EST Body Mass Index 31.31 04/04/2025 6:37 PM EST documented in this encounter Plan of Treatment Upcoming Encounters Date Type Department Care Team (Late st Contact Info) Description 08/18/2025 12:45 PM EDT Office Visit [facility] [address] [place] [address] Karlene Hancock Scheduled Orders Name Type Priority Associated Diagnoses Orde r Schedule XR Foot 3+ Views Right Imaging Routine Localized swelling of right foot Expected: 04/04/2025, Expires: 04/04/2026 Uric acid Lab Routine Localized swelling of right foot Expected: 04/04/2025 (Approximate), Expires: 04/04/2026 documented as of this encounter Visit Diagnoses Diagnosis Localized swelling of right foot- Primary Tinea pedis of right foot documented in this encounter Additional Health Concerns Assessment Noted Time PHQ-9 Depression Total Score: 0 01/13/20 25 9:41 AM EDT documented as of this encounter Care Teams Cooking Teacher Relationship Specialty Start Date End Date Enid Diaz FNP [address] [place] [id number] PCP - General Family Medicine 01/18/22 documented as of this encounter
--- NOTE | ~2025-04-05 | XR_ITS ---
EXAMINATION: XR FOOT 3 OR MORE VIEWS RIGHT HISTORY: swelling COMPARISON: Comparison is made with the prior examination dated 09/07/2015. FINDINGS: Three views of the right foot are submitted. Osseous mineralization is normal. There is no fracture or dislocation. There is moderate osteoarthritis of the 1st MTP joint, with joint space narrowing and osteophyte formation. There are calcaneal spurs at the plantar aspect and at the insertion of the Achilles tendon. There are vascular calcifications. 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 Electronically signed by: Venu Hudson MD 04/05/2025 08:58 AM EST
--- OUTSIDE RECORDS SUMMARY | 2025-04-05 08:42 | XMS_ITS | Encounter Summary ---
Author Organization [employer] Address [address] [facility] [address] [place] [address] Care Team Providers Care Top Frame Fitter Name Role Phone Enid Diaz DIRECTOR LEARNING AND DEVELOPMENT Primary Care Provider [phone] Encounter Details Date Type Department Care Team ([facility] st Contact Info) Description 05/05/2024 Orders Only [facility] [address] [place], [place] [id number] Provider, MD Harvey Social History Tobacco Use [...] Description 08/18/2025 12:45 PM EDT Office Visit [facility] [address] [place] [address] Karlene Hancock documented as of this encounter [...] documented as of this encounter Care Teams Top Frame Fitter Relationship Specialty Start Date End Date Enid Diaz FNP [address] [place] [address] PCP - General Family Medicine 01/18/22 documented as of this encounter
--- OUTSIDE RECORDS SUMMARY | 2025-04-05 08:42 | XMS_ITS | Clinical Summary ---
Author Organization [facility] Address [address] [place] [address] Phone Care Team Providers Care Crematorium Operator Name Role Phone Arlene Wong NP Primary Care Provider [phone] Allergies Active Allergy Reactions Criticality Noted Date [...] to complete this topic Insurance [facility] [place] [id number] [facility] [place] [id number] Care Teams Crematorium Operator Relationship Specialty Start Date End Date Arlene Wong NP PCP - General 06/12/20
--- OUTSIDE RECORDS SUMMARY | 2025-04-05 08:43 | XMS_ITS | Encounter Summary ---
Author Organization [facility] Address [address] [place] [address] [address] [place] [address] Care Team Providers Care Pack Room Operator Name Role Phone Enid Diaz Primary Care Provider [phone] Encounter Details Date Type Department Care Team (Latest Contact Info) Description 12/10/2018 Abstract [facility] Dental, Provider, DDS Social History [...] Description 08/18/2025 12:45 PM EDT Office Visit [facility] [address] [place] [address] Karlene Hancock documented as of this encounter Visit Diagnoses Not on filedocumented in this encounter Care Teams Pack Room Operator Relationship Specialty Start Date End Date Enid Diaz FNP [address] [place] [address] PCP - General Family Medicine 01/18/22 documented as of this encounter
--- OUTSIDE RECORDS SUMMARY | 2025-04-05 08:43 | XMS_ITS | Encounter Summary ---
Author Organization [employer] Address [address] [facility] [address] [place] [address] Care Team Providers Care Noise Abatement Engineer Name Role Phone Enid Diaz Primary Care Provider [phone] Reason for Visit * Reason Comments Med Refill Encounter Details Date Type Department Care Team ([facility] st Contact Info) Description 02/04/2025 Refill [facility] [address] [place] [address] Enid Diaz FNP [address] [place] [address] Muscle spasm Social History Tobacco Use Types [...] Description 08/18/2025 12:45 PM EDT Office Visit [facility] [address] [place] [address] Karlene Hancock documented as of this encounter Visit Diagnoses Diagnosis Muscle spasm Spasm of muscle documented in this encounter Additional Health Concerns Assessment Noted Time PHQ-9 Depression Total Score: 0 01/13/20 25 9:41 AM EDT documented as of this encounter Care Teams Noise Abatement Engineer Relationship Specialty Start Date End Date Eind Diaz FNP [address] [place] [address] PCP - General Family Medicine 01/18/22 documented as of this encounter
--- OUTSIDE RECORDS SUMMARY | 2025-04-05 08:43 | XMS_ITS | Encounter Summary ---
Author Organization [employer] Address [address] [facility] [address] [place] [address] Care Team Providers Care Magistrate Judge Name Role Phone Enid Diaz Primary Care Provider [phone] Reason for Visit * Reason Comments Med Refill Encounter Details Date Type Department Care Team ([facility] st Contact Info) Description 12/03/2023 Refill [facility] [address] [place] [address] Enid Diaz FNP [address] [place] [address] Erectile dysfunction, unspecified erectile dysfunction type Social [...] Description 08/18/2025 12:45 PM EDT Office Visit [facility] [address] [place] [address] Karlene Hancock documented as of this encounter Visit Diagnoses Diagnosis Erectile dysfunction, unspecified erectile dysfunction type documented in this encounter Additional Health Concerns Assessment Noted Time PHQ-9 Depression Total Score: 2 09/17/19 24 10:52 AM EDT documented as of this encounter Care Teams Magistrate Judge Relationship Specialty Start Date End Date Enid Diaz FNP [address] [place] [address] PCP - General Family Medicine 01/18/22 documented as of this encounter
--- OUTSIDE RECORDS SUMMARY | 2025-04-05 08:43 | XMS_ITS | Clinical Summary ---
Author Organization [employer] Address [address] [place] [address] 7[address] [place] [address] Care Team Providers Care Semiconductor Packages Tester Name Role Phone Enid Diaz BUSINESS CONTINUITY COORDINATOR Primary Care Provider [phone] Allergies Active Allergy Reactions Criticality Noted Date [...] DAY IN THE MORNING 90 capsule 2 Active econazole nitrate 1 % creamIndications: Tinea pedis of right foot Apply topically Once per day. 15 g 025 2024 Active cholecalciferol (D3 Super Strength) 50 MCG (2000 UT) capsule TAKE 1 CAPSULE BY MOUTH EVERY DAY IN THE MORNING 90 capsule 1 025 2024 Discontinued(R eorder (will not trigger notification to Pharmacy)) Active Problems Problem Noted Date Diagnosed Date Tubular adenoma 07/08/2024 Overview (07/08/2024): History of tubular adenoma of colon Followed by [facility] general surgery-Dr. Bowling Colonoscopy April 2024. Removed [...] maintenance 04/09/2023 Overview (07/08/2024): Colonoscopy: 04/16/24 at [facility] (Dr. Bowling). Multiple tubular adenomas. Next due: [...] post arthroplasty chronic seroma. - Referral to [facility] Ortho for further eval placed on 01/12/25. Assessment & Plan (04/09/2023 5:15 PM EST): -May use tramadol sparingly (rx 10-15 tablets/month). Reviewed med safety and SE. -Consider referral to [facility] [employer] program if need for tramadol persists Assessment & Plan (12/04/2022 6:07 PM EDT): -Tramadol 50mg daily PRN sent to pharmacy - shared decision making to use as infrequently as possible, while still maintaining ability to function in ADLs. (plan for 15 tablets total/month). If benefits > risks and pt continues to request refill of med, will consider [employer] [employer] contract -Reviewed med safety and SE. Has [...] to request refill of med, will consider [employer] [employer] contract -Reviewed med safety and SE. Narcan [...] w PCP Stage 3 chronic kidney disease ([facility]/HCC) 021 Assessment & Plan (07/08/2024 10:44 AM EST): Continue following with nephrology- Dr. Griffith at [facility]. H/o mild hypercalcemia - following calcium and PTH Repeat BMP and microalbumin Assessment & Plan (12/17/2023 10:49 AM EDT): Continue following with nephrology- Dr. Griffith at [facility]. H/o mild hypercalcemia - following with repeat calcium and PTH on routine basis Assessment & Plan (09/21/2023 8:37 PM EDT): Continue following with nephrology- Dr. Griffith at [facility]. Per consult note Jul 2023: h/o mild hypercalcemia - following with repeat calcium and PTH Assessment & Plan (08/06/2023 4:47 PM EST): Continue following with nephrology- Dr. Griffith at [facility] Assessment & Plan (12/04/2022 6:04 [...] moderate 06/12/2023 08/06/2023 Hypertensive heart disease w [facility] heart failure 10/31/2020 09/21/2023 Primary osteoarthritis invol ving multiple joints 04/17/2015 10/06/2022 Encounters Date Type Department Care Team Description 04/04/2025 6:00 PM EST Office Visit [facility] [address] [place] [phone] Localized swelling of right foot (Primary Dx); Tinea pedis of right foot 04/04/2025 Travel 03/31/2025 Orders Only GENERIC EXTERNAL DATA DEPARTMENT Provider, Generic External Data 03/10/2025 Refill [facility] [address] [place] [address] Enid Diaz FNP 02/04/2025 Refill [facility] [address] [place] [phone] Enid Diaz FNP Muscle spasm 01/24/2025 11:00 AM EDT Office Visit [facility] [address] [place] [address] Karlene Hancock Dental calculus (Primary Dx); Dental staining 01/19/2025 Telephone [facility] [address] [place] [phone] Karissa Karlene 01/12/2025 9:45 AM EDT Office Visit [facility] [address] [place] [phone] Enid Diaz FNP Abnormal finding on imaging (Primary Dx); History of bilateral hip replacements; Hematuria, unspecified type; Muscle spasm 01/12/2025 Travel 01/11/2025 Telephone [facility] [address] [place] [phone] Enid Diaz FNP CHART PREP 01/05/2025 Orders [...] Mass Index 31.31 04/04/2025 6:37 PM EST Plan of Treatment Upcoming Encounters Date Type Department Care Team (Late st Contact Info) Description 08/18/2025 12:45 PM EDT Office Visit [facility] [address] [place] [address] Karlene Hancock [facility] Due Date Last Done Comments CT Colonography [...] Procedure Name Priority Date/Time Associated Diagnosis Comments NM BONE WHOLE BODY Routine 04/04/2025 12 :22 PM EST PTH, INTACT WITHOUT CALCIUM Routine 03/31/2025 11:28 [...] Recently Relevant to Health Maintenance Results * NM Bone Whole Body (04/04/2025 12:22 PM EST) Anatomical Region Laterality Modality Nuclear Medicine 04/04/2025 12:2 2 PM EST Narrative 04/04/2025 2:31 PM EST [place] [address] Nuclear Medicine Report Signed Patient: Jose Angel Haas MR#: [id number] [birth year] : 1955 Acct:[id number] Age/Sex: 70 / M ADM Date: 04/04/25 Loc: [facility]QUA Attending Dr: Curtis Velez PA-C Ordering Physician: Curtis Velez PA-C Date of Service: 04/04/25 Procedure(s): NM bone scan whole body Accession Number(s): [id number] cc: Curtis Velez PA-C; Enid Diaz Reason for Exam: Z96.643 - Presence of artificial hip joint, bilateral EXAMINATION: NM BONE SCAN WHOLE BODY HISTORY: Z96.643 - Presence of artificial hip joint, bilateral. TECHNIQUE: A total body bone scan was performed following the intravenous administration of 30 mCi technetium 99m-MDP. COMPARISON: Comparison is made with the prior examination dated 07/01/2019. Correlation is also made to plain films of the pelvis and right hip dated 03/04/2025. FINDINGS: There are photopenic defects at both hips consistent with joint arthroplasties. No abnormal uptake is seen in either hip to suggest loosening. There is mild increased asymmetric uptake involving the right AC joint and the right sternoclavicular joint, consistent with osteoarthritis. Mild increased uptake at the knees and in the right midfoot are consistent with degenerative change. There are foci of increased activity at the T11 and T8 vertebral levels on the right consistent with degenerative change. There is normal bilateral renal uptake. NM/NM bone scan whole body IMPRESSION: Status post bilateral total hip arthroplasty. No abnormal uptake is seen to suggest loosening. Electronically signed by: Venu Hudson MD 04/04/2025 02:28 PM [facility] Dictated By: Venu Hudson MD Signed By: <Electronically signed by Venu Hudson MD in OV> 04/04/25 1428 DD/ 1222 TD/TT: 04/04/25 1340 Technology Support Analyst: Procedure Note Donotuseinterpreter, Image - 04/04/[address] [address] Nuclear Medicine Report Signed Patient: Jose Angel HaasMR#: [id number] 80 : 1955cct:[id number] Age/Sex: 70 / MADM Date: 04/04/25 Loc: SH[facility]QUA Attending Dr: Curtis Velez PA-C Ordering Physician: Curtis Velez PA-C Date of Service: 04/04/25 Procedure(s): NM bone scan whole body Accession Number(s): [id number] cc: Curtis Velez PA-C; Enid Diaz Reason for Exam: Z96.643 - Presence of artificial hip joint, bilateral EXAMINATION: NM BONE SCAN WHOLE BODY HISTORY: Z96.643 - Presence of artificial hip joint, bilateral. TECHNIQUE: A total body bone scan was performed following the intravenous administration of 30 mCi technetium 99m-MDP. COMPARISON: Comparison is made with the prior examination dated 07/01/2019. Correlation is also made to plain films of the pelvis and right hip dated 03/04/2025. FINDINGS: There are photopenic defects at both hips consistent with joint arthroplasties. No abnormal uptake is seen in either hip to suggest loosening. There is mild increased asymmetric uptake involving the right AC joint and the right sternoclavicular joint, consistent with osteoarthritis. Mild increased uptake at the knees and in the right midfoot are consistent with degenerative change. There are foci of increased activity at the T11 and T8 vertebral levels on the right consistent with degenerative change. There is normal bilateral renal uptake. NM/NM bone scan whole body IMPRESSION: Status post bilateral total hip arthroplasty. No abnormal uptake is seen to suggest loosening. Electronically signed by: Venu Hudson MD 04/04/2025 02:28 PM [facility] Dictated By: Venu Hudson MD Signed By: <Electronically signed by Venu Hudson MD in OV> 04/04/25 1428 DD/ 1222 TD/TT: 04/04/25 1340 Technology Support Analyst: [facility] External Provider IM NM PROCEDURES Final Result * (ABNORMAL) PTH, Intact Without Calcium (03/31/2025 11:28 AM EDT) Parathyroid Hormone, Intact 97.4(H) 8.7 - 77.1 pg/mL [facility] 03/31/2025 11:2 8 AM EDT 03/31/2025 11:28 AM EDT us Generic External Data Provider LAB BLOOD ORDERAB LES Final Result Performing Organization Address [facility] Co de Phone Number [facility] [address] [place] [address] [phone] * (ABNORMAL) Basic Metabolic Panel (03/31/2025 11:28 AM EDT) Only the most recent of2 resultswithin the time period is included. Sodium 143 135 - 145 mmol/L [facility] Potassium 4.3 3.3 - 5.1 mmol/L [facility] Chloride 110(H) 96 - 108 mmol/L [facility] Carbon Dioxide 28 22 - 29 mmol/L [facility] Anion Gap 9(L) 12 - 20 [facility] Urea Nitrogen (BUN) 15 9 - 16 mg/dL [facility] Creatinine, Serum 1.21 0.5 - 1.4 mg/dL [facility] Estimated Glomerular Filt Rate 59 [facility] Comment:Chronic Kidney Disea se: Estimated GFR < 60 mL/min/1.64t3Oxzujc Kidney Disease: Estimated GFR < 15 mL/min/1.73m2 Glucose 212(H) 60 - 115 mg/dL [facility] Calcium 9.7 8.4 - 10.2 mg/dL [facility] 03/31/2025 11:2 8 AM EDT 03/31/2025 11:28 AM EDT us Generic External Data Provider LAB BLOOD ORDERAB LES Final Result Performing Organization Address [facility]/ZIP Co de Phone Number [facility] [address] [place] [address] [phone] * CT Abdomen Pelvis w/ Contrast (01/05/2025 3:23 AM EDT) Anatomical Region Laterality Modality Body, Pelvis, Abdomen Computed T omography 01/05/2025 3:23 AM EDT Narrative 01/05/2025 3:25 AM EDT [address] [address] [address] Scan Report Signed Patient: Jose Angel Haas MR#: [id number] [birth year] : 1955 Acct:[id number] Age/Sex: 69 / M ADM Date: 01/04/25 Loc: HO.ED Attending Dr: Ordering Physician: Santos Ramos PA-C Date of Service: 01/05/25 Procedure(s): CT abdomen pelvis w IV con Accession Number(s): [id number] cc: Santos Ramos PA-C; Enid Diaz BUSINESS CONTINUITY COORDINATOR Report Number: [id number]: Total DLP = 635.00 mGy-cm CLINICAL HISTORY: [...] OV> 01/05/25 0324 DD/ 2 TD/TT: 01/05/25322 Technology Support Analyst: Procedure Note Donotuseinterpreter, Image - 01/05/[address] [place] [address] [address] Scan Report Signed Patient: Jose Angel HaasMR#: [id number] 80 : 1955cct:[id number] Age/Sex: 69 / MADM Date: 01/04/25 Loc: HO.ED Attending Dr: Ordering Physician: Santos Ramos PA-C Date of Service: 01/05/25 Procedure(s): CT abdomen pelvis w IV con Accession Number(s): [id number] cc: Santos Ramos PA-C; Enid Diaz [facility] Report Number: [id number]: Total DLP = 635.00 mGy-cm CLINICAL HISTORY: [...] in OV> 01/05/25323 DD/ 2 TD/TT: 01/05/25322 Technology Support Analyst: us [facility] External Provider IMG CT PROCEDURES Final Result * (ABNORMAL) Urinalysis, Complete, with Reflex to Culture (01/05/2025 1:06 AM EDT) Color Urine Yellow [facility] Appearance Urine Clear [facility] PH 5.5 5.0 - 9.0 [facility] Glucose Urine UA Negative Negative mg/dL [facility] Urine Blood Trace(A) Negative [facility] Specific [place] - Urine 1.015 1.005 - 1.025 [facility] Urine Protein Negative Neg-Trace mg/dL [facility] Urine Ketones Negative Negative mg/dL [facility] Nitrite Urine Negative Negative [facility] Leukocyte Esterase Urine Negative Negative [facility] RBC Urine 0-2 0 - 2 /HPF [facility] Urine WBC 0-5 0 - 5 /HPF [facility] Urine Squamous Epithelial Cell 0-2 0 - 2 /HPF [facility] Urine Bacteria None Seen None Seen [facility] Hyaline Casts, Urine 0-2 0 - 2 /LPF [facility] 01/05/2025 1:06 AM EDT 01/05/2025 1:11 AM EDT Narrative [facility] - 01/05/2025 1:32 AM EDT Urine, Clean Catch Generic External Data Provider LAB URINE ORDERAB LES Final Result [facility] [address] [place] [address] [phone] * (ABNORMAL) Urinalysis w/reflex microscopic (01/05/2025 1:06 AM EDT) Color Urine Yellow [facility] Appearance Urine Clear [facility] PH 5.5 5.0 - 9.0 [facility] Glucose Urine UA Negative Negative mg/dL [facility] Urine Blood Trace(A) Negative [facility] Specific [place] - Urine 1.015 1.005 - 1.025 [facility] Urine Protein Negative Neg-Trace mg/dL [facility] Urine Ketones Negative Negative mg/dL [facility] Nitrite Urine Negative Negative [facility] Leukocyte Esterase Urine Negative Negative [facility] 01/05/2025 1:06 AM EDT 01/05/2025 1:11 AM EDT Narrative [facility] - 01/05/2025 1:29 AM EDT Urine, Clean Catch us Generic External Data Provider LAB URINE ORDERAB LES Final Result Performing Organization Address City/State/[facility] Co de Phone Number [facility] [address] [place] [phone] * XR Hip left with Pelvis 1 view (01/04/2025 9:30 PM EDT) Anatomical Region Laterality Modality Lower Extremities, Hip Bilateral Radiograp hic Imaging 01/04/2025 9:30 PM EDT Narrative 01/04/2025 9:31 PM EDT [address] [address] XRay Report Signed Patient: Jose Angel aHas MR#: [id number] 80 : 1955 Acct:[id number] Age/Sex: 69 / M ADM Date: 01/04/25 Loc: HO.ED Attending Dr: Ordering Physician: Lisa Mclain Date of Service: 01/04/25 Procedure(s): XR hip LT w PEL1V Accession Number(s): [id number] cc: Enid Diaz BUSINESS CONTINUITY COORDINATOR; Lisa Mclain CLINICAL HISTORY: pain 3 view, pelvis and left hip Comparison: X-ray of the pelvis and right hip from 06/12/2022. Findings: Osseous lucencies of the proximal remaining left femur are nonspecific and can be seen with chronic and/or subacute hardware loosening. No acute fracture about left hip arthroplasty hardware at this time. Right hip arthroplasty hardware also redemonstrated in the [id number]. Portions of the pelvis obscured without acute [...] in OV> 01/04/252130 DD/ 29 TD/TT: 01/04/252129 Technology Support Analyst: Procedure Note Donotuseinterpreter, Image - 01/04/2025 [place] [address] XRay Report Signed Patient: Jose Angel HaasMR#: [id number] 80 : 1955cct:[id number] Age/Sex: 69 / MADM Date: 01/04/25 Loc: HO.ED Attending Dr: Ordering Physician: Lisa Mclain Date of Service: 01/04/25 Procedure(s): XR hip LT w PEL1V Accession Number(s): [id number] cc: Enid Diaz; Lisa Mclain CLINICAL HISTORY: [...] hip arthroplasty hardware also redemonstrated in the [id number]. Portions of the pelvis obscured without acute [...] in OV> 01/04/252130 DD/ 29 TD/TT: 01/04/252129 Technology Support Analyst: [facility] External Provider IMG XR PROCEDURES Edited Result - Final * (ABNORMAL) CBC auto differential (01/04/2025 8:52 PM EDT) White Blood Count 11.8(H) 4.8 - 10.8 X10*3/uL [facility] Red Blood Count 4.45(L) 4.60 - 5.80 X10*6/uL [facility] Hemoglobin 15.4 14.0 - 18.0 g/dl [facility] Hematocrit 44.4 42.0 - 52.0 % [facility] Mean Corpuscular Volume 99.8(H) 80.0 - 98.0 fL [facility] Mean Corpuscular Hemoglobin 34.6(H) 27.0 - 33.0 pg [facility] Mean Corpuscular HGB Conc 34.7 31.0 - 36.0 g/dl [facility] Red Cell Distribution Width 12.2 11.0 - 16.0 % [facility] Platelet Count 198 160 - 400 X10*3/uL [facility] Mean Platelet Volume 10.9 9.4 - 12.4 fL [facility] Neutrophils Percent Auto 56.6 45 - 73 % [facility] Imm Gran Pct Auto 0.3 0.0 - 0.4 % [facility] Lymphocytes Percent Auto 33.8 20 - 40 % [facility] Monocytes Percent Auto 6.5 2 - 11 % [facility] Eosinophils Percent Auto 2.0 0 - 4 % [facility] Basophils Percent Auto 0.8 0 - 2 % [facility] NRBC Pct Auto 0.0 0.0 - 0.2 /100WBC [facility] Neutrophils Absolute Auto 6.7 2.0 - 8.3 x10*3/uL [facility] Imm Gran Abs Auto 0.04(H) 0.00 - 0.03 X10*3/uL [facility] Lymphocytes Absolute Auto 4.0 1.2 - 4.9 X10*3/uL [facility] Monocytes Absolute Auto 0.8 0.1 - 1.2 X10*3/uL [facility] Eosinophils Absolute Auto 0.2 0.0 - 0.4 X10*3/uL [facility] Basophils Absolute Auto 0.1 0.0 - 0.2 X10*3/uL [facility] NRBC Abs Auto 0.000 0.0 - 0.012 X10*3/uL [facility] 01/04/2025 8:52 PM EDT 01/04/2025 8:55 PM EDT Generic External Data Provider LAB BLOOD ORDERAB LES Final Result Performing Organization Address City/[facility]/ZIP Co de Phone Number [facility] [address] [place] [phone] * Magnesium (01/04/2025 8:52 PM EDT) [facility] Magnesium 2.0 1.6 - 2.6 mg/dL [facility] 01/04/2025 8:52 PM EDT 01/04/2025 8:55 PM EDT Generic External Data Provider LAB BLOOD ORDERAB LES Final Result Performing Organization Address [facility] Co de Phone Number [facility] [address] [place] [phone] * Hepatic Function Panel (01/04/2025 8:52 PM EDT) Bilirubin, Total 0.6 0.0 - 1.0 mg/dL [facility] Bilirubin, Direct 0.2 0.0 - 0.5 mg/dL [facility] Aspartate Amino Transferase 27 5 - 37 U/L [facility] Alanine Aminotransferase 31 0 - 40 U/L [facility] Total Protein 7.5 6.5 - 8.0 g/dL [facility] Albumin Level 4.4 3.5 - 5.0 g/dL [facility] Alkaline Phosphatase 66 39 - 117 U/L [facility] 01/04/2025 8:52 PM EDT 01/04/2025 8:55 PM EDT us Generic External Data Provider LAB BLOOD ORDERAB LES Final Result Performing Organization Address [facility]/ZIP Co de Phone Number [facility] [address] [place] [phone] * Hepatitis C Viral RNA, Quantitative, Real-Time PCR (10/04/2024 9:56 AM EDT) Hepatitis C Viral Load <15 NOT DETECTED NOT DETECTED IU/mL [facility] HCV Log PCR <1.18 NOT DETECTED NOT DETECTED Log IU/mL [facility] Comment:For additional infor matyesy, please refer tohttp://education.Tout/faq/GAC15i4(This link is being provided for informational/educational purposes only.)THIS TEST WAS PERFORMED AT:[employer] [place] [phone] REYNOLDS MD Blood 10/04/2024 9:56 AM EDT 10/04/2024 11:18 AM EDT us Enid Diaz BUSINESS CONTINUITY COORDINATOR LAB BLOOD ORDERABLES Final Res ult Performing Organization Address [facility]/ZIP Co de Phone Number [facility] [address] [place] [address] [phone] * Lipid Panel, Standard (10/04/2024 9:56 AM EDT) Triglycerides 78 <150 mg/dL [facility] Comment:Desirable Triglyceri de: less than 150 mg/dLBorderline High Triglyceride 150-199 mg/dLHigh Triglyceride: 200-499 mg/dLVery High Triglyceride: greater than or equal to 5OO mg/dL Cholesterol 140 <200 mg/dL [facility] Comment:Desirable Cholestero l: less than 200 mg/dLBorderline High Cholesterol: 200-239 mg/dLHigh Cholesterol: greater than 239 mg/dL LDL Cholesterol Calculated 53 <100 mg/dL [facility] Comment:Desirable LDL: less than 100 mg/dLNear Optimal/Above Optimal LDL: 110- 129 mg/dLBorderline High LDL: 130-159 mg/dLHigh LDL: 160-189 mg/dLVery High LDL: greater than or equal to 190 mg/dL HDL Cholesterol 72 >40 mg/dL [facility] Comment:Desirable HDL: great er than 40 mg/dL Note: This HDL assay may give artificially low results in patients with liver disease. Blood Venous blood specimen / Unknown 10/04/2024 9:56 AM EDT 10/04/2024 11:19 AM EDT Enid Diaz BUSINESS CONTINUITY COORDINATOR LAB BLOOD ORDERABLES Final Res ult [facility] [address] [place] [address] [phone] * Colonoscopy (04/16/2024 4:45 PM EST) Historical Provider HEALTH MAINTENANCE Final Result from Last 3 Months or Most Recently Relevant to Health Maintenance Insurance [facility] LONGTERM OPTIONS (O D-SNP) [facility] Care Teams Semiconductor Packages Tester Relationship Specialty Start Date End Date Enid Diaz FNP [address] [place] [phone] PCP - General Family Medicine 01/18/22
--- OUTSIDE RECORDS SUMMARY | 2025-04-05 08:43 | XMS_ITS | Encounter Summary ---
Author Organization [employer] Address [address] [facility] [address] [place] [address] Care Team Providers Care Character Actor Name Role Phone Enid Diaz Primary Care Provider [phone] Reason for Visit * Reason Comments Med Refill Encounter Details Date Type Department Care Team ([facility] st Contact Info) Description 04/29/2023 Refill [facility] [address] [place] [address] Enid Diaz FNP [address] [place] [address] Hypothyroidism, unspecified type Social History Tobacco Use [...] Please ask him to come to the [facility] to complete blood work at his convenience, thank you! documented in this encounter Plan of Treatment Upcoming Encounters Date Type Department Care Team (Late st Contact Info) Description 08/18/2025 12:45 PM EDT Office Visit [facility] [address] [place] [address] Karlene Hancock documented as of this encounter Procedures Procedure Name Priority Date/Time Associated Diagnosis Comments TSH W/REFLEX TO FT4 Routine 05/01/2023 9 :25 AM EST Hypothyroidism, unspecified type documented in this encounter Results * TSH W/Reflex to FT4 (05/01/2023 9:25 AM EST) TSH reflex Free T4 0.62 0.32 - 4.0 uIU/mL [facility] Blood 05/01/2023 9:25 AM EST 05/01/2023 11:13 AM EST us Enid MAYS LAB BLOOD ORDERABLES Final Res ult [facility] [address] [place] [address] [phone] documented in this encounter Visit Diagnoses Diagnosis Hypothyroidism, unspecified type documented in this encounter Additional Health Concerns Assessment Noted Time PHQ-9 Depression Total Score: 0 05/21/20 22 3:26 PM EST documented as of this encounter Care Teams Character Actor Relationship Specialty Start Date End Date Enid Diaz FNP [address] [place] [address] PCP - General Family Medicine 01/18/22 documented as of this encounter
--- OUTSIDE RECORDS SUMMARY | 2025-04-05 08:43 | XMS_ITS | Encounter Summary ---
Author Organization [employer] Address [address] [facility] 7t [place] [address] Care Team Providers Care Education Associate Name Role Phone Enid Diaz DAVON Primary Care Provider [phone] Encounter Details Date Type Department Care Team [...] Description 08/18/2025 12:45 PM EDT Office Visit [facility] ADULT DENTAL [address] [place] [address] Karlene Hancock documented as of this encounter Procedures Procedure Name Priority Date/Time Associated Diagnosis Comments NM BONE WHOLE BODY Routine 04/04/2025 12 :22 PM EST PTH, INTACT WITHOUT CALCIUM Routine 03/31/2025 11:28 AM EDT BASIC METABOLIC PANEL Routine 03/31/2025 11:28 AM EDT documented in this encounter Results * NM Bone Whole Body (04/04/2025 12:22 PM EST) Anatomical Region Laterality Modality Nuclear Medicine 04/04/2025 12:2 2 PM EST Narrative 04/04/2025 2:31 PM EST [address] [address] Nuclear Medicine Report Signed Patient: Jose Angel Haas MR#: [id number] 80 : 1955 Acct:[id number] Age/Sex: 70 / M ADM Date: 04/04/25 Loc: [facility] Attending Dr: Curtis Velez PA-C Ordering Physician: Curtis Velez PA-C Date of Service: 04/04/25 Procedure(s): NM bone scan whole body Accession Number(s): [id number] cc: Curtis Velez PA-C; Enid Diaz Reason [...] by: Venu Hudson MD 04/04/2025 02:28 PM [facility] [place] Dictated By: Venu Hudson MD Signed By: <Electronically signed by Venu Hudson MD in OV> 04/04/25 1428 DD/ 1222 TD/TT: 04/04/25 1340 Cross Tie Tram Loader: Procedure Note Sherry, Image - 04/04/2025 [place] [address] Nuclear Medicine Report Signed Patient: Jose Angel HaasMR#: [id number] 80 : 1955cct:[id number] Age/Sex: 70 / MADM Date: 04/04/25 Loc: [facility] Attending Dr: Curtis Velez PA-C Ordering Physician: Curtis Velez PA-C Date of Service: 04/04/25 Procedure(s): NM bone scan whole body Accession Number(s): [id number] cc: Curtis Velez PA-C; Enid Diaz Reason [...] by: Venu Hudson MD 04/04/2025 02:28 PM [facility] [place] Dictated By: Venu Hudson MD Signed By: <Electronically signed by Venu Hudson MD in OV> 04/04/25 1428 DD/ 1222 TD/TT: 04/04/25 1340 Cross Tie Tram Loader: [facility] External Provider IMG NM PROCEDURES Final Result * (ABNORMAL) PTH, Intact Without Calcium (03/31/2025 11:28 AM EDT) Parathyroid Hormone, Intact 97.4(H) 8.7 - 77.1 pg/mL [facility] 03/31/2025 11:2 8 AM EDT 03/31/2025 11:28 AM EDT Generic External Data Provider LAB BLOOD ORDERAB LES Final Result Performing Organization Address City/[facility]/ZIP Co de Phone Number [facility] [address] [place] [address] [phone] * (ABNORMAL) Basic Metabolic Panel (03/31/2025 11:28 AM EDT) Sodium 143 135 - 145 mmol/L [facility] Potassium 4.3 3.3 - 5.1 mmol/L [facility] Chloride 110(H) 96 - 108 mmol/L [facility] Carbon Dioxide 28 22 - 29 mmol/L [facility] Anion Gap 9(L) 12 - 20 [facility] Urea Nitrogen (BUN) 15 9 - 16 mg/dL [facility] Creatinine, Serum 1.21 0.5 - 1.4 mg/dL [facility] Estimated Glomerular Filt Rate 59 [facility] Comment:Chronic Kidney Disea se: Estimated GFR < 60 mL/min/1.05d3Iquojb Kidney Disease: Estimated GFR < 15 mL/min/1.73m2 Glucose 212(H) 60 - 115 mg/dL [facility] Calcium 9.7 8.4 - 10.2 mg/dL [facility] 03/31/2025 11:2 8 AM EDT 03/31/2025 11:28 AM EDT Generic External Data Provider LAB BLOOD ORDERAB LES Final Result Performing Organization Address City/[facility]/ZIP Co de Phone Number [facility] [address] [place] [phone] documented in this encounter Visit Diagnoses Not on filedocumented in this encounter Additional Health Concerns Assessment Noted Time PHQ-9 Depression Total Score: 0 01/13/20 25 9:41 AM EDT documented as of this encounter Care Teams Education Associate Relationship Specialty Start Date End Date Enid Diaz FNP [address] [place] [address] PCP - General Family Medicine 01/18/22 documented as of this encounter
--- OUTSIDE RECORDS SUMMARY | 2025-04-05 08:43 | XMS_ITS | Encounter Summary ---
Author Organization [employer] Address [address] [facility] 7t [place] [address] Care Team Providers Care Rn Perioperative Name Role Phone Enid Diaz PRODUCE SPECIALIST Primary Care Provider Encounter Details Date Type Department Care Team (Late st Contact Info) Description 08/30/2022 Orders Only [facility] CHC MED & PEDS [address] [place] [address] Winnie Harris LPN Social History Tobacco Use [...] 08/18/2025 12:45 PM EDT Office Visit [facility] ADULT DENTAL [address] [place] [address] Karlene Hancock documented as of this encounter Visit Diagnoses Not on filedocumented in this encounter Additional Health Concerns Assessment Noted Time PHQ-9 Depression Total Score: 0 05/21/20 3:26 PM EST documented as of this encounter Care Teams Rn Perioperative Relationship Specialty Start Date End Date Enid Diaz FNP [address] [place] [phone] PCP - General Family Medicine 01/18/22 documented as of this encounter
--- OUTSIDE RECORDS SUMMARY | 2025-04-05 08:43 | XMS_ITS | Encounter Summary ---
Author Organization [employer] Address [address] [facility] 7[address] [place] [address] Care Team Providers Care Title Coordinator Name Role Phone Enid Diaz EDUCATION OFFICER Primary Care Provider [phone] Encounter Details Date Type Department Care Team (Latest Contact Info) Description 04/04/2025 Travel Social History Tobacco Use Types Packs/Day Years [...] Description 08/18/2025 12:45 PM EDT Office Visit [facility] ADULT DENTAL [address] [place] [address] Karlene Hancock documented as of this encounter Visit Diagnoses Not on filedocumented in this encounter Additional Health Concerns Assessment Noted Time PHQ-9 Depression Total Score: 0 01/13/20 25 9:41 AM EDT documented as of this encounter Care Teams Title Coordinator Relationship Specialty Start Date End Date Enid Diaz FNP [address] [place] [address] PCP - General Family Medicine 01/18/22 documented as of this encounter
--- OUTSIDE RECORDS SUMMARY | 2025-04-05 08:43 | XMS_ITS | Encounter Summary ---
Author Organization [employer] [facility] Address [address] [facility] 7t [place] [address] Care Team Providers Care Dip Guider Stoves Name Role Phone Enid Diaz COLLEGE ADMISSIONS COUNSELOR Primary Care Provider [phone] Reason for Visit * Reason Comments Med Refill Encounter Details Date Type Department Care Team (Late st Contact Info) Description 02/11/2023 Refill [facility] MEDICINE [address] [place] [address] Name, MD Josef [address] [place] [address] Hypertension, unspecified type Social History Tobacco Use [...] Description 08/18/2025 12:45 PM EDT Office Visit [facility] ADULT DENTAL [address] [place] [address] Karlene Hancock documented as of this encounter Visit Diagnoses Diagnosis Hypertension, unspecified type documented in this encounter Additional Health Concerns Assessment Noted Time PHQ-9 Depression Total Score: 0 05/21/20 3:26 PM EST documented as of this encounter Care Teams Dip Guider Stoves Relationship Specialty Start Date End Date Enid Diaz FNP [address] [place] [address] PCP - General Family Medicine 01/18/22 documented as of this encounter
[2025-04-05 11:44] LABS: Appearance Urine Clear; Glucose Urine UA Negative (Negative); PH 5.5 (5.0-9.0); Specific Gravity - Urine 1.015 (1.005-1.025); UMIC TRIGGER UACC YES
[2025-04-05 12:37] LABS: Uric Acid 7.9 mg/dL (3.4-7.0)
[2025-04-05 12:41] LABS: Anion Gap 12 (12-20); Blood Urea Nitrogen 15 mg/dL (9-16); Calcium 9.7 mg/dL (8.4-10.2); Carbon Dioxide 26 mmol/L (22-29); Chloride 108 mmol/L (96-108); Estimated Glomerular Filt Rate > 60; Potassium 4.6 mmol/L (3.3-5.1); Sodium 141 mmol/L (135-145)
== END 2025-04-05 08:24 | disposition home or self-care (01) ==
LOC: HO.HHCL 08:23
PROVIDERS: Internal Medicine Hypertension Specialist; Registered Nurse; PCP Nurse Practitioner; Visit Provider Nurse Practitioner
DX: R22.41 Localized swelling, mass and lump, right lower limb (principal); R31.9 Hematuria, unspecified; N18.9 Chronic kidney disease, unspecified
CPT/HCPCS: 36415; 73630; 80051; 81001; 82310; 82565; 84520; 84550

== ENCOUNTER → 2025-04-05 08:33 | Outpatient (BNV) | payer OTHER, SELFPAY | PROVIDERS: PCP Nurse Practitioner; Visit Provider Radiology Diagnostic Radiology | DX: M19.171 Post-traumatic osteoarthritis, right ankle and foot (principal) | CPT/HCPCS: 73630 ==

== ENCOUNTER 2025-04-25 10:44 | Outpatient (AMB) | payer OTHER, SELFPAY ==
--- NOTE | 2025-04-25 10:45 | MHC.OFFVIS ---
Vital Signs 04/25/25 10:55 Height 5 ft 6 in Weight 192 lb 6 oz BMI 31.0 Intake Visit Reasons: 1 yr follow up colonoscopy Intake Note: Patient presents for a yearly follow-up colonoscopy. Pt c/o; reports no complaints. Central Lab Technician Required: Yes Central Lab Technician Language: Housekeeping And Laundry Team Leader Services: Central Lab Technician Present Central Lab Technician Name: Radha Information Interpreted: non-clinical & clinical Accompanied by: Self / Same As Patient Allergies ibuprofen (From MOTRIN) Allergy (Intermediate, Verified 05/05/25 13:42) GI PROBLEM, GI upset dicloxacillin Allergy (Unknown, Verified 05/05/25 13:42) Unknown Penicillins (PENICILLINS) Allergy (Unknown, Verified 05/05/25 13:42) UNKNOWN HPI HPI 1 yr follow up colonoscopy: Details: 70-year-old male here for a follow up colonoscopy. He had a colonoscopy last April,. I removed about 8 polyps scattered throughout the entire colon. These were about 5 mm in largest dimension. These were all tubular adenomas and there was 1 sessile serrated polyp at level 70 cm. In view of the above findings, I recommended repeating his colonoscopy within 1 year He says he does not have any GI complaints currently. He denies any rectal bleeding. He denies weight loss. [facility] Medical History History of colon polyps Tubular adenoma of colon GERD (gastroesophageal reflux disease) Kidney disease High cholesterol Hypothyroid Colon abnormality Asthma History of adenomatous polyp of colon Hypertension Surgical History Hx of colonoscopy (~04/16/24) H/O colonoscopy H/O: hemorrhoidectomy Status post total hip replacement, bilateral Social History Are you a primary rn home care to a significant other at home: No Do you presently have visiting nurse or other home services: No Alcohol intake: current Alcohol intake frequency: 3 or more drinks per day Alcohol type: beer Patient Tobacco Use Status: Never used Tobacco Substance Use Type: Marijuana Current occupational status: disabled Review of Systems Const Denies chills and Denies fever(s) Card Denies chest pain, Denies dyspnea and Denies dyspnea on exertion Resp Denies cough, Denies dyspnea and Denies dyspnea on exertion GI Denies hematochezia and Denies change in bowel habits Denies hematuria and Denies difficulty urinating Musc Denies back pain and Denies limited range of motion Neuro Denies focal weakness and Denies convulsions Psych Denies depression and Denies mood swings Physical Exam Vital Signs: BMI result Body Mass Index 31.0 Const General: comfortable and no acute distress Orientation/consciousness: patient oriented x3 Neck Neck: Yes no lymphadenopathy Resp Auscultation: clear to auscultation bilaterally Cardio Rhythm: regular rhythm GI Palpation (GI): Soft to palpation, nontender and no guarding Neuro General: patient oriented x3 Assessment & Plan Assessment & Plan (1) History of colon polyps: Code(s): Z86.0100 - Personal history of colon polyps, unspecified Category: Medical Plan: He had multiple small polyps scattered throughout his entire colon last year. These were all tubular adenomas with 1 serrated adenoma. I recommended repeating his colonoscopy within 1 year. I reviewed with the technique of this procedure. I explained the risks including but not limited to bleeding and perforation, as well as the benefits and alternatives. He says he understands and wants to proceed. Medications: New sodium,potassium,mag sulfates 17.5-3.13-1.6 gram (Suprep Bowel Prep Kit) DILUTE; drink full amount early evening before AND next morning at least 2 hr before procedure; follow w 960 mL water PO 354 mL 0RF sodium,potassium,mag sulfates 17.5-3.13-1.6 gram (Suprep Bowel Prep Kit) DILUTE; drink full amount early evening before AND next morning at least 2 hr before procedure; follow w 960 mL water PO 354 mL 0RF Coding Level of Care Code New Pt Level 3 (20550) Diagnoses History of colon polyps Z86.0100
[2025-04-25 10:55] VITALS: BMI 31.0
== END 2025-04-25 11:01 | disposition home or self-care (01) ==
LOC: HO.HGS 10:45
PROVIDERS: PCP Registered Nurse; Visit Provider Surgery
DX: Z86.0100 Personal history of colon polyps, unspecified (principal)
CPT/HCPCS: 99213

== ENCOUNTER → 2025-04-25 10:44 | Outpatient (BNVA) | payer OTHER, SELFPAY | PROVIDERS: PCP Registered Nurse; Visit Provider Surgery | DX: Z01.818 Encounter for other preprocedural examination (principal); D12.6 Benign neoplasm of colon, unspecified; Z86.0100 Personal history of colon polyps, unspecified | CPT/HCPCS: 99212 ==

== ENCOUNTER 2025-05-05 13:18 | Outpatient (AMB) | payer OTHER, SELFPAY ==
--- NOTE | 2025-05-05 13:40 | MHC.OFFVIS ---
Vital Signs 05/05/25 13:42 Height 5 ft 6 in Weight 192 lb BMI 31.0 Intake Visit Reasons: OV f/u for results of bone scan Intake Note: Jose Angel is a 70 year old male who presents today to discuss results of recent bone scan. Hx of bilateral hip replacements. Allergies ibuprofen (From MOTRIN) Allergy (Intermediate, Verified 05/05/25 13:42) GI PROBLEM, GI upset dicloxacillin Allergy (Unknown, Verified 05/05/25 13:42) Unknown Penicillins (PENICILLINS) Allergy (Unknown, Verified 05/05/25 13:42) UNKNOWN Medication List - Last Reconciled 05/05/25 by Curtis Velez PA-C amlodipine 2.5 mg PO DAILY cholecalciferol (vitamin D3) (Vitamin D3) 50 mcg PO DAILY cyclobenzaprine 10 mg PO TID PRN levothyroxine 112 mcg PO Q2D levothyroxine 125 mcg PO Q2D loratadine 10 mg PO DAILY PRN losartan 50 mg PO DAILY pantoprazole 40 mg PO DAILY rosuvastatin 10 mg PO BEDTIME sildenafil (Viagra) 50 - 100 mg PO DAILY PRN sodium,potassium,mag sulfates 17.5-3.13-1.6 gram (Suprep Bowel Prep Kit) DILUTE; drink full amount early evening before AND next morning at least 2 hr before procedure; follow w 960 mL water PO HPI HPI OV f/u for results of bone scan: Details: 70-year-old gentleman returns to the office today for a follow up of his bone scan. He had bilateral hip replacements done over 20 years ago. Currently he states he has no significant pain in the hips and is doing well. [facility] [facility] Medical History History of colon polyps Tubular adenoma of colon GERD (gastroesophageal reflux disease) Kidney disease High cholesterol Hypothyroid Colon abnormality Asthma History of adenomatous polyp of colon Hypertension Surgical History Hx of colonoscopy (~04/16/24) H/O colonoscopy H/O: hemorrhoidectomy Status post total hip replacement, bilateral Social History Are you a primary acute care nursing assistant to a significant other at home: No Do you presently have visiting nurse or other home services: No Alcohol intake: current Alcohol intake frequency: 3 or more drinks per day Alcohol type: beer Patient Tobacco Use Status: Never used Tobacco Substance Use Type: Marijuana Current occupational status: disabled Review of Systems Const All systems reviewed & are unremarkable except as noted in HPI and below Physical Exam Vital Signs: BMI result Body Mass Index 31.0 Const General: cooperative and no acute distress Orientation/consciousness: patient oriented x3 Resp Effort & Inspection: normal respiratory effort and able to speak in complete sentences Cardio Peripheral pulses: Peripheral pulses 2+ throughout Neuro General: patient oriented x3 Extrem Other: full ROM bilat hip Pain with ABduction bilaterally TTP left great troch Assessment & Plan Assessment & Plan (1) Hx of bilateral hip replacements: Code(s): Z96.643 - Presence of artificial hip joint, bilateral Category: Surgical Plan: I reviewed with the patient the bone scan was negative for signs of loosening or infection. Since he is doing well since I last saw him I encouraged him to continue with activities as tolerated. He should also maintain home exercise program to work on glute strengthening. The patient will contact me if there is any concerns going forward otherwise follow up as needed. Coding Level of Care Code Est Pt Level 3 (21452) Complex visit Add On G2211 Diagnoses Hx of bilateral hip replacements Z96.643
[2025-05-05 13:42] VITALS: BMI 31.0
== END 2025-05-05 14:12 | disposition home or self-care (01) ==
LOC: HO.HOS 13:19
PROVIDERS: PCP Registered Nurse; Visit Provider Physician Assistant
DX: Z47.89 Encounter for other orthopedic aftercare (principal); Z96.643 Presence of artificial hip joint, bilateral
CPT/HCPCS: 99213; G2211

== ENCOUNTER → 2025-05-05 13:18 | Outpatient (BNVA) | payer OTHER, SELFPAY | PROVIDERS: PCP Registered Nurse; Visit Provider Physician Assistant | DX: Z47.1 Aftercare following joint replacement surgery (principal); Z96.643 Presence of artificial hip joint, bilateral | CPT/HCPCS: 99212 ==

== ENCOUNTER 2025-05-20 06:43 | Day surgery (SDC) | payer OTHER, SELFPAY ==
--- OUTSIDE RECORDS SUMMARY | 2025-05-12 06:58 | XMS_ITS | Encounter Summary ---
Author Organization [employer] Address [address] [facility] 7t [place] [address] Care Team Providers Care Fitter Tacker Name Role Phone Enid Diaz Primary Care Provider [phone] Reason for Visit * Reason Comments Med Refill Encounter Details Date Type Department Care Team ([facility] st Contact Info) Description 04/29/2023 Refill [facility] MEDICINE [address] [place] [address] Enid Diaz FNP [address] [place] [address] Hypothyroidism, unspecified type Social History Tobacco Use [...] Please ask him to come to the [facility] to complete blood work at his convenience, thank you! documented in this encounter Plan of Treatment Upcoming Encounters Date Type Department Care Team (Late st Contact Info) Description 08/18/2025 12:45 PM EDT Office Visit [facility] ADULT DENTAL [address] [place] [address] Karlene Hancock documented as of this encounter Procedures Procedure Name Priority Date/Time Associated Diagnosis Comments TSH W/REFLEX TO FT4 Routine 05/01/2023 9 :25 AM EST Hypothyroidism, unspecified type documented in this encounter Results * TSH W/Reflex to FT4 (05/01/2023 9:25 AM EST) TSH reflex Free T4 0.62 0.32 - 4.0 uIU/mL [facility] Blood 05/01/2023 9:25 AM EST 05/01/2023 11:13 AM EST us Enid MAYS LAB BLOOD ORDERABLES Final Res ult [facility] [address] [place] [address] [phone] documented in this encounter Visit Diagnoses Diagnosis Hypothyroidism, unspecified type documented in this encounter Additional Health Concerns Assessment Noted Time PHQ-9 Depression Total Score: 0 05/21/20 22 3:26 PM EST documented as of this encounter Care Teams Fitter Tacker Relationship Specialty Start Date End Date Enid Diaz FNP [address] [place] [address] PCP - General Family Medicine 01/18/22 documented as of this encounter
--- OUTSIDE RECORDS SUMMARY | 2025-05-12 06:58 | XMS_ITS | Encounter Summary ---
Author Organization [employer] Address [address] [facility] 7t [place] [address] Care Team Providers Care Pyrotechnist Name Role Phone Enid Diaz PARING MACHINE OPERATOR Primary Care Provider [phone] Encounter Details Date Type Department Care Team (Late st Contact Info) Description 08/30/2022 Orders Only [facility] CHC MED & PEDS [address] [place] [address] Winnie Harris LPN Social History Tobacco Use [...] Description 08/18/2025 12:45 PM EDT Office Visit [facility] ADULT DENTAL [address] [place] [address] Karlene Hancock documented as of this encounter Visit Diagnoses Not on filedocumented in this encounter Additional Health Concerns Assessment Noted Time PHQ-9 Depression Total Score: 0 05/21/20 3:26 PM EST documented as of this encounter Care Teams Pyrotechnist Relationship Specialty Start Date End Date Enid Diaz FNP [address] [place] [address] PCP - General Family Medicine 01/18/22 documented as of this encounter
--- OUTSIDE RECORDS SUMMARY | 2025-05-12 06:58 | XMS_ITS | Encounter Summary ---
Author Organization [employer] [facility] Address [address] [facility] 7t [place] [address] Care Team Providers Care Apartment Assistant Manager Name Role Phone Enid Diaz DISTRIBUTION LINEMAN Primary Care Provider [phone] Reason for Visit * Reason Comments Med Refill Encounter Details Date Type Department Care Team (Late st Contact Info) Description 02/11/2023 Refill [facility] MEDICINE [address] [place] [address] Name, MD Josef [address] [place] [address] Hypertension, unspecified type Social History Tobacco Use [...] Description 08/18/2025 12:45 PM EDT Office Visit [facility] ADULT DENTAL [address] [place] [address] Karlene Hancock documented as of this encounter Visit Diagnoses Diagnosis Hypertension, unspecified type documented in this encounter Additional Health Concerns Assessment Noted Time PHQ-9 Depression Total Score: 0 05/21/20 3:26 PM EST documented as of this encounter Care Teams Apartment Assistant Manager Relationship Specialty Start Date End Date Enid Diaz FNP [address] [place] [address] PCP - General Family Medicine 01/18/22 documented as of this encounter
--- OUTSIDE RECORDS SUMMARY | 2025-05-12 06:58 | XMS_ITS | Encounter Summary ---
Author Organization [employer] Address [address] [facility] 7t [place] [address] Care Team Providers Care Aircraft Maintenance Engineer Name Role Phone Enid Diaz ELECTRONIC DIE MAKER Primary Care Provider [phone] Encounter Details Date Type Department Care Team ([facility] st Contact Info) Description 05/05/[address] [facility] CHC MED & PEDS [address] [place], [place] [phone] Provider, MD Harvey Social History Tobacco Use [...] 08/18/2025 12:45 PM EDT Office Visit [facility] ADULT DENTAL [address] [place] [address] Karlene Hancock documented as of this encounter [...] documented as of this encounter Care Teams Aircraft Maintenance Engineer Relationship Specialty Start Date End Date Enid Diaz FNP [address] [place] [address] PCP - General Family Medicine 01/18/22 documented as of this encounter
--- OUTSIDE RECORDS SUMMARY | 2025-05-12 06:58 | XMS_ITS | Encounter Summary ---
Author Organization [employer] Address [address] [facility] [address] [place] [address] Care Team Providers Care Mortgage Coordinator Name Role Phone Enid Diaz Primary Care Provider [phone] Reason for Visit * Reason Comments Med Refill Encounter Details Date Type Department Care Team ([facility] st Contact Info) Description 12/03/2023 Refill [facility] MEDICINE [address] [place] [address] Enid Diaz FNP [address] [place] [address] Erectile dysfunction, unspecified erectile dysfunction type Social [...] Description 08/18/2025 12:45 PM EDT Office Visit [facility] ADULT DENTAL [address] [place] [address] Karlene Hancock documented as of this encounter Visit Diagnoses Diagnosis Erectile dysfunction, unspecified erectile dysfunction type documented in this encounter Additional Health Concerns Assessment Noted Time PHQ-9 Depression Total Score: 2 09/17/19 24 10:52 AM EDT documented as of this encounter Care Teams Mortgage Coordinator Relationship Specialty Start Date End Date Enid Diaz FNP [address] [place] [address] PCP - General Family Medicine 01/18/22 documented as of this encounter
--- OUTSIDE RECORDS SUMMARY | 2025-05-12 06:58 | XMS_ITS | Clinical Summary ---
Author Organization [facility] Address [address] [facility] [place] [address] Phone Care Team Providers Care Mixing Machine Attendant Name Role Phone Arlene Wong NP Primary Care Provider [phone] Allergies Active Allergy Reactions Criticality Noted Date [...] patient's age to complete this topic Insurance [facility] [place] [id number] [facility] [place] [id number] Care Teams Mixing Machine Attendant Relationship Specialty Start Date End Date Arlene Wong NP PCP - General 06/12/20
--- OUTSIDE RECORDS SUMMARY | 2025-05-12 06:58 | XMS_ITS | Encounter Summary ---
Author Organization [employer] Address [address] [facility] [address]t [place] [address] Care Team Providers Care Group Teacher Name Role Phone Enid Diaz Primary Care Provider [phone] Reason for Visit * Reason Comments Med Refill Encounter Details Date Type Department Care Team ([facility] st Contact Info) Description 02/04/2025 Refill [facility] MEDICINE [address] [place] [address] Enid Diaz FNP [address] [place] [address] Muscle spasm Social History Tobacco Use Types [...] Description 08/18/2025 12:45 PM EDT Office Visit [facility] ADULT DENTAL [address] [place] [address] Karlene Hancock documented as of this encounter Visit Diagnoses Diagnosis Muscle spasm Spasm of muscle documented in this encounter Additional Health Concerns Assessment Noted Time PHQ-9 Depression Total Score: 0 01/13/20 25 9:41 AM EDT documented as of this encounter Care Teams Group Teacher Relationship Specialty Start Date End Date Enid Diaz FNP [address] [place] [address] PCP - General Family Medicine 01/18/22 documented as of this encounter
--- OUTSIDE RECORDS SUMMARY | 2025-05-12 06:58 | XMS_ITS | Clinical Summary ---
Author Organization [employer] Address [address] [place] [address] Care Team Providers Care Electric Switch Tester Name Role Phone Enid Diaz WINDOWS MIGRATION TECHNICIAN Primary Care Provider [phone] Allergies Active Allergy Reactions Criticality Noted Date [...] mild pain. 30 g 2 024 Active loratadine (Claritin) 10 MG tablet [...] EVERY DAY AT BEDTIME 90 tablet 3 04/19/20 9:37 AM EST 025 Active levothyroxine (Synthroid, Levoxyl) 125 MCG [...] THE MORNING 90 capsule 2 025 Active amLODIPine (Norvasc) 2.5 MG tabletIndications :Hypertension, unspecified type TAKE 1 TABLET BY MOUTH EVERY MORNING 90 tablet 3 04/27/20 25 2:48 PM EST 025 Active oxyCODONE (Roxicodone) 5 MG immediate release tabletIndications :Arthritis Take 1 tablet (5 mg) by mouth every 8 (eight) hours if needed for severe pain. 12 tablet 04/27/20 3:19 PM EST 025 Active amLODIPine (Norvasc) 2.5 MG tabletIndications :Hypertension, unspecified type TAKE 1 TABLET BY MOUTH EVERY MORNING 90 tablet 3 024 2024 Discontinued econazole nitrate 1 % creamIndications: Tinea pedis of right foot Apply topically Once per day. 15 g 025 2024 methylPREDNISolon e (Medrol Dospak) 4 MG tabletsIndication s:Localized swelling of right foot Follow schedule on package instructions 21 tablet 025 2024 predniSONE (Deltasone) 10 MG tabletIndications :Arthritis Take 4 tablets (40 mg) by mouth Once per day for 5 days, THEN 3 tablets (30 mg) Once per day for 3 days, THEN 2 tablets (20 mg) Once per day for 3 days, THEN 1 tablet (10 mg) Once per day for 3 days. 38 tablet 04/27/20 25 3:19 PM EST 025 2024 Active Problems Problem Noted Date Diagnosed Date Tubular adenoma 07/08/2024 Overview (07/08/2024): History of tubular adenoma of colon Followed by [facility] general surgery-Dr. Bowling Colonoscopy April 2024. Removed [...] maintenance 04/09/2023 Overview (07/08/2024): Colonoscopy: 04/16/24 at [facility] (Dr. Bowling). Multiple tubular adenomas. Next due: [...] post arthroplasty chronic seroma. - Referral to [facility] Ortho for further eval placed on 01/12/25. Assessment & Plan (04/09/2023 5:15 PM EST): -May use tramadol sparingly (rx 10-15 tablets/month). Reviewed med safety and SE. -Consider referral to WINDOWS MIGRATION TECHNICIAN program if need for tramadol persists Assessment & Plan (12/04/2022 6:07 PM EDT): -Tramadol 50mg daily PRN sent to pharmacy - shared decision making to use as infrequently as possible, while still maintaining ability to function in ADLs. (plan for 15 tablets total/month). If benefits > risks and pt continues to request refill of med, will consider WINDOWS MIGRATION TECHNICIAN contract -Reviewed med safety and SE. Has [...] to request refill of med, will consider WINDOWS MIGRATION TECHNICIAN contract -Reviewed med safety and SE. Narcan [...] AM EST): Continue following with nephrology- Dr. Griffiht at [facility]. H/o mild hypercalcemia - following calcium and PTH Repeat BMP and microalbumin Assessment & Plan (12/17/2023 10:49 AM EDT): Continue following with nephrology- Dr. Griffith at [facility]. H/o mild hypercalcemia - following with repeat calcium and PTH on routine basis Assessment & Plan (09/21/2023 8:37 PM EDT): Continue following with nephrology- Dr. Griffith at [facility]. Per consult note Jul 2023: h/o mild hypercalcemia - following with repeat calcium and PTH Assessment & Plan (08/06/2023 4:47 PM EST): Continue following with nephrology- Dr. Griffith at [facility] Assessment & Plan (12/04/2022 6:04 [...] Encounters Date Type Department Care Team Description 04/27/2025 2:40 PM EST Office Visit [facility] [address] [place], [place] [phone] Raúl Nevarez MD Arthritis (Primary Dx) 04/27/2025 Travel 04/25/2025 Refill [facility] [address] [place], [place] [phone] Enid Diaz FNP Hypertension, unspecified type 04/13/2025 Results Follow-Up [facility] [address] [place] [address] Enid Diaz FNP Urinalysis, Complete, with Reflex to Culture 04/06/2025 Results Follow-Up [facility] [address] [place] [address] Gardenia Sadler NP XR Foot 3+ Views Right 04/05/2025 Orders Only [facility] [address] [place], [place] [phone] Enid Diaz FNP 04/04/2025 6:00 PM EST Office Visit [facility] [address] [place] [address] Gardenia Sadler NP Localized swelling of right foot (Primary Dx); Tinea pedis of right foot 04/04/2025 Travel 03/31/2025 Orders Only GENERIC EXTERNAL DATA DEPARTMENT Provider, Generic External Data 03/10/2025 Refill [facility] [address] [place] [address] Enid Diaz FNP from Last 3 Months Immunizations Immunization Administration [...] Sign Reading Time Taken Comments Blood Pressure 142/78 04/27/2025 2:08 PM EST Pulse 105 04/27/2025 2:08 PM EST Temperature 36.6 C (97.8 F) 04/27/2025 2:08 PM EST Respiratory Rate 20 04/27/2025 2:08 PM EST Oxygen Saturation 98% 04/27/2025 2:08 PM EST Inhaled Oxygen Concentration - - Weight 86.2 kg (190 lb) 04/27/2025 2:08 PM EST Height 167.6 cm (5' 6 ) 04/27/2025 2:08 PM EST Body Mass Index 30.67 04/27/2025 2:08 PM EST Plan of Treatment Upcoming Encounters Date Type Department Care Team (Late st Contact Info) Description 08/18/2025 12:45 PM EDT Office Visit [facility] [address] [place] [address] Karlene Hancock Health Maintenance Due Date Last Done Comments CT Colonography 1955 FIT DNA/Cologuard 1955 FIT 1955 FOBT 1955 Sigmoidoscopy 1955 RSV Patients and Patients Aged 60 years or older (1 - Risk 50-74 years 1-dose series) 2003 COVID-19 Vaccine ( season) 2025 07/07/2024, 08/06/2023, 12/04/2022, Additional history exists Influenza Vaccine (#1) 2025 , 04/09/2023, 04/23/2022, Additional history exists Colonoscopy 04/16/2025 04/16/2024 Colorectal Cancer Screening 04/16/2025 Dental Oral Exam 07/28/2025 01/24/2025, , 01/13/2024, Additional history exists Dental Prophylaxis 07/28/2025 01/24/2025, 0 07/15/2024, 01/13/2024, Additional history exists Alcohol/Substance Use Screening 01/12/2026 01/12/2025 Depression Screening 01/12/2026 01/12/2025, 01/13/20 SDOH Screening 01/12/2026 01/12/2025 Dental X-Ray: Bitewings 01/25/2026 01/25/20 25, 01/13/2024, 06/12/2023, Additional history exists Tobacco Screening 04/27/2026 04/27/2025 Dental X-Ray: Full Mouth 06/13/2026 024, 03/23/2013, [...] Procedure Name Priority Date/Time Associated Diagnosis Comments XR FOOT 3+ VIEWS RIGHT Routine 04/05/2025 8:50 AM EST Localized swelling of right foot CALCIUM Routine 04/05/2025 8:43 AM EST CREATININE, SERUM Routine 04/05/2025 8:4 3 AM EST UREA NITROGEN (BUN) Routine 04/05/2025 8 :43 AM EST ELECTROLYTE PANEL Routine 04/05/2025 8:4 3 AM EST URINALYSIS, COMPLETE, WITH REFLEX TO CULTURE Routine 04/05/2025 8:43 AM EST URIC ACID Routine 04/05/2025 8:43 AM EST Localized swelling of right foot NM BONE WHOLE BODY Routine 04/04/2025 12 :22 PM EST PTH, INTACT WITHOUT CALCIUM Routine 03/31/2025 11:28 AM EDT BASIC METABOLIC PANEL Routine 03/31/2025 11:28 AM EDT PROPHYLAXIS - ADULT Routine 01/24/2025 1 1:00 AM EDT Dental calculus Dental staining BITEWINGS - 4 RADIOGRAPHIC IMAGES Routine 01/24/2025 11:00 AM EDT Dental calculus Dental staining PERIODIC ORAL EVALUATION - ESTABLISHED PATIENT Routine 01/24/2025 11:00 AM EDT HEPATITIS C VIRAL RNA, QUANTITATIVE, REAL-TIME [...] Relevant to Health Maintenance Results * XR Foot 3+ Views Right (04/05/2025 8:50 AM EST) Anatomical Region Laterality Modality Lower Extremities, Foot Right [facility] 04/05/2025 8:50 AM EST Narrative 04/05/2025 9:05 AM EST [address] [address] XRay Report Signed Patient: Jose Angel Haas MR#: [id number] 82 : 1955 Acct:[id number] Age/Sex: 70 / M ADM Date: 04/05/25 Loc: [facility] Attending Dr: Gardenia Sadler Ordering Physician: Gardenia Sadler Date of Service: 04/05/25 Procedure(s): XR foot RT min 3V Accession Number(s): [id number] cc: Gardenia Sadler Reason for Exam: swelling EXAMINATION: XR FOOT 3 OR MORE VIEWS RIGHT HISTORY: swelling COMPARISON: Comparison is made with the prior examination dated 09/07/2015. FINDINGS: Three views of the right foot are submitted. Osseous mineralization is normal. There is no fracture or dislocation. There is moderate osteoarthritis of the 1st MTP joint, with joint space narrowing and osteophyte formation. There are calcaneal spurs at the plantar aspect and at the insertion of the Achilles tendon. There are vascular calcifications. 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 Electronically signed by: Venu Hudson MD 04/05/2025 08:58 AM EST Dictated By: Venu Hudson MD Signed By: <Electronically signed by Venu Hudson MD in OV> 04/05/25 0858 DD/ 0850 TD/TT: 04/05/25 0851 Manager Graphic: Procedure Note Donotuseinterpreter, Image - 04/05/2025 [place] [address] XRay Report Signed Patient: Jose Angel HaasMR#: [id number] 80 : 1955cct:[id number] Age/Sex: 70 / MADM Date: 04/05/25 Loc: [facility] Attending Dr: Gadrenia Sadler Ordering Physician: Gardenia Sadler Date of Service: 04/05/25 Procedure(s): XR foot RT min 3V Accession Number(s): [id number] cc: Gardenia Sadler Reason for Exam: swelling EXAMINATION: XR FOOT 3 OR MORE VIEWS RIGHT HISTORY: swelling COMPARISON: Comparison is made with the prior examination dated 09/07/2015. FINDINGS: Three views of the right foot are submitted. Osseous mineralization is normal. There is no fracture or dislocation. There is moderate osteoarthritis of the 1st MTP joint, with joint space narrowing and osteophyte formation. There are calcaneal spurs at the plantar aspect and at the insertion of the Achilles tendon. There are vascular calcifications. 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 Electronically signed by: Venu Hudson MD 04/05/2025 08:58 AM EST RP Dictated By: Venu Hudson MD Signed By: <Electronically signed by Venu Hudson MD in OV> 04/05/25 0858 DD/ TD/TT: 04/05/25 0851 Manager Graphic: us Gardenia Appram HEAVY MEDIA OPERATOR IMG XR PROCEDURES Final Result * (ABNORMAL) Urinalysis, Complete, with Reflex to Culture (04/05/2025 8:43 AM EST) Color Urine Yellow [facility] Appearance Urine Clear [facility] PH 5.5 5.0 - 9.0 [facility] Glucose Urine UA Negative Negative mg/dL [facility] Urine Blood Trace(A) Negative [facility] Specific [place] - Urine 1.015 1.005 - 1.025 [facility] Urine Protein Negative Neg-Trace mg/dL [facility] Urine Ketones Negative Negative mg/dL [facility] Nitrite Urine Negative Negative [facility] Leukocyte Esterase Urine Negative Negative [facility] RBC Urine 0-2 0 - 2 /HPF [facility] Urine WBC 0-5 0 - 5 /HPF [facility] Urine Squamous Epithelial Cell 0-2 0 - 2 /HPF [facility] Urine Bacteria None Seen None Seen [facility] Hyaline Casts, Urine 0-2 0 - 2 /LPF [facility] 04/05/2025 8:43 AM EST 04/05/2025 11:35 AM EST Narrative [facility] - 04/05/2025 11:51 AM EST Urine, Clean Catch us Enideros Diaz WINDOWS MIGRATION TECHNICIAN LAB URINE ORDERABLES Final Res ult Performing Organization Address [facility] Co de Phone Number [facility] [address] [place] [phone] * Creatinine, Serum (04/05/2025 8:43 AM EST) Creatinine, Serum 1.08 0.5 - 1.4 mg/dL [facility] Estimated Glomerular Filt Rate >60 [facility] Comment:Chronic Kidney Disea se: Estimated GFR < 60 mL/min/[id number] Kidney Disease: Estimated GFR < 15 mL/min/1.73m2 04/05/2025 8:43 AM EST 04/05/2025 11:54 AM EST us Generic External Data Provider LAB BLOOD ORDERAB LES Final Result Performing Organization Address [facility] Co de Phone Number [facility] [address] [place] [phone] * (ABNORMAL) Uric acid (04/05/2025 8:43 AM EST) Uric Acid 7.9(H) 3.4 - 7.0 mg/dL [facility] Blood Venous blood specimen / Unknown 04/05/2025 8:43 AM EST 04/05/2025 11:54 AM EST us Gardenia Sadler HEAVY MEDIA OPERATOR LAB BLOOD ORDERABLES Final Resu lt Performing Organization Address [facility] Co de Phone Number [facility] [address] [place] [phone] * BUN (Blood Urea Nitrogen) (04/05/2025 8:43 AM EST) Urea Nitrogen (BUN) 15 9 - 16 mg/dL [facility] 04/05/2025 8:43 AM EST 04/05/2025 11:54 AM EST us Generic External Data Provider LAB BLOOD ORDERAB LES Final Result Performing Organization Address [facility] Co de Phone Number [facility] [address] [place] [phone] * Calcium (04/05/2025 8:43 AM EST) Calcium 9.7 8.4 - 10.2 mg/dL [facility] 04/05/2025 8:43 AM EST 04/05/2025 11:54 AM EST us Generic External Data Provider LAB BLOOD ORDERAB LES Final Result Performing Organization Address [facility] Co sc Phone Number [facility] [address] [place] [phone] * Electrolyte Panel (04/05/2025 8:43 AM EST) Sodium 141 135 - 145 mmol/L [facility] Potassium 4.6 3.3 - 5.1 mmol/L [facility] Chloride 108 96 - 108 mmol/L [facility] Carbon Dioxide 26 22 - 29 mmol/L [facility] Anion Gap 12 12 - 20 [facility] 04/05/2025 8:43 AM EST 04/05/2025 11:54 AM EST us Generic External Data Provider LAB BLOOD ORDERAB LES Final Result Performing Organization Address [facility] Co de Phone Number [facility] [address] [place] [phone] * NM Bone Whole Body (04/04/2025 12:22 PM EST) Anatomical Region Laterality Modality Nuclear Medicine 04/04/2025 12:2 2 PM EST Narrative 04/04/2025 2:31 PM EST [place] [address] Nuclear Medicine Report Signed Patient: Jose Angel Haas MR#: [id number] [birth year] : 1955 Acct:[id number] Age/Sex: 70 / M ADM Date: 04/04/25 Loc: [facility] Attending Dr: Curtis Velez PA-C Ordering Physician: Curtis Velez PA-C Date of Service: 04/04/25 Procedure(s): NM bone scan whole body Accession Number(s): [id number] cc: Curtis Velez PA-C; Enid Diaz Reason [...] by: Venu Hudson MD 04/04/2025 02:28 PM [facility] Dictated By: Venu Hudson MD Signed By: <Electronically signed by Venu Hudson MD in OV> 04/04/25 1428 DD/ 1222 TD/TT: 04/04/25 1340 Manager Graphic: Procedure Note Donotuseinterpreter, Image - 04/04/[address] [address] Nuclear Medicine Report Signed Patient: Jose Angel HaasMR#: [id number] 80 : 1955cct:[id number] Age/Sex: 70 / MADM Date: 04/04/25 Loc: [facility] Attending Dr: Curtis Velez PA-C Ordering Physician: Curtis Velez PA-C Date of Service: 04/04/25 Procedure(s): NM bone scan whole body Accession Number(s): [id number] cc: Curtis Velez PA-C; Enid Diaz Reason [...] by: Venu Hudson MD 04/04/2025 02:28 PM EST RP Dictated By: Venu Hudson MD Signed By: <Electronically signed by Venu Hudson MD in OV> 04/04/25 1428 DD/ 1222 TD/TT: 04/04/25 1340 Manager Graphic: [facility] External Provider IMG NM PROCEDURES Final Result * (ABNORMAL) PTH, Intact Without Calcium (03/31/2025 11:28 AM EDT) Parathyroid Hormone, Intact 97.4(H) 8.7 - 77.1 pg/mL [facility] 03/31/2025 11:2 8 AM EDT 03/31/2025 11:28 AM EDT Generic External Data Provider LAB BLOOD ORDERAB LES Final Result Performing Organization Address City/State/[facility] Co de Phone Number [facility] [address] [place] [phone] * (ABNORMAL) Basic Metabolic Panel (03/31/2025 11:28 AM EDT) Sodium 143 135 - 145 mmol/L [facility] Potassium 4.3 3.3 - 5.1 mmol/L [facility] Chloride 110(H) 96 - 108 mmol/L [facility] Carbon Dioxide 28 22 - 29 mmol/L [facility] Anion Gap 9(L) 12 - 20 [facility] Urea Nitrogen (BUN) 15 9 - 16 mg/dL [facility] Creatinine, Serum 1.21 0.5 - 1.4 mg/dL [facility] Estimated Glomerular Filt Rate 59 [facility] Comment:Chronic Kidney Disea se: Estimated GFR < 60 mL/min/[id number] Kidney Disease: Estimated GFR < 15 mL/min/1.73m2 Glucose 212(H) 60 - 115 mg/dL [facility] Calcium 9.7 8.4 - 10.2 mg/dL [facility] 03/31/2025 11:2 8 AM EDT 03/31/2025 11:28 AM EDT us Generic External Data Provider LAB BLOOD ORDERAB LES Final Result Performing Organization Address [facility] Co de Phone Number [facility] [address] [place] [phone] * Hepatitis C Viral RNA, Quantitative, Real-Time PCR (10/04/2024 9:56 AM EDT) Pathologist [facility] Hepatitis C Viral Load <15 NOT DETECTED NOT DETECTED IU/mL [facility] HCV Log PCR <1.18 NOT DETECTED NOT DETECTED Log IU/mL [facility] Comment:For additional infor martha, please refer [email or web address].[email or web address]/[email or web address](This link is being provided for informational/educational purposes only.)THIS TEST WAS PERFORMED AT:[facility] [place] [phone] REYNOLDS MD Blood 10/04/2024 9:56 AM EDT 10/04/2024 11:18 AM EDT us Enid Diaz WINDOWS MIGRATION TECHNICIAN LAB BLOOD ORDERABLES Final Res ult Performing Organization Address [facility] de Phone Number [facility] [address] [place] [phone] * Lipid Panel, Standard (10/04/2024 9:56 AM EDT) Triglycerides 78 <150 mg/dL [facility] Comment:Desirable Triglyceri de: less than 150 mg/dLBorderline High Triglyceride 150-199 mg/dLHigh Triglyceride: 200-499 mg/dLVery High Triglyceride: greater than or equal to 5OO mg/dL Cholesterol 140 <200 mg/dL [facility] Comment:Desirable Cholestero l: less than 200 mg/dLBorderline High Cholesterol: 200-239 mg/dLHigh Cholesterol: greater than 239 mg/dL LDL Cholesterol Calculated 53 <100 mg/dL [facility] Comment:Desirable LDL: less than 100 mg/dLNear Optimal/Above Optimal LDL: 110- 129 mg/dLBorderline High LDL: 130-159 mg/dLHigh LDL: 160-189 mg/dLVery High LDL: greater than or equal to 190 mg/dL HDL Cholesterol 72 >40 mg/dL [facility] Comment:Desirable HDL: great er than 40 mg/dL Note: This HDL assay may give artificially low results in patients with liver disease. Blood Venous blood specimen / Unknown 10/04/2024 9:56 AM EDT 10/04/2024 11:19 AM EDT Enid Diaz WINDOWS MIGRATION TECHNICIAN LAB BLOOD ORDERABLES Final Res ult [facility] [address] [place] [phone] * Colonoscopy (04/16/2024 4:45 PM EST) Historical Provider HEALTH MAINTENANCE Final Result from Last 3 Months or Most Recently Relevant to Health Maintenance Insurance [facility] [employer] (O D-SNP) [place] [id number] DENTAL - [facility] * Guarantor: Jose Angel Haas Account Type Relation to Patient Date of Phone Billing Address Personal/Family Self [address] [place] [address] * Guarantor: Jose Angel Haas Account Type Relation to Patient Date of Phone Billing Address Personal/Family Self [address] [place] [address] Care Teams Electric Switch Tester Relationship Specialty Start Date End Date Enid Diaz FNP [address] [place] [address] PCP - General Family Medicine 01/18/22
--- OUTSIDE RECORDS SUMMARY | 2025-05-12 06:58 | XMS_ITS | Encounter Summary ---
Author Organization [facility] Address [address] [place] [address] [address] [place] [address] Care Team Providers Care Slab Installer Name Role Phone Enid Diaz Primary Care Provider [phone] Encounter Details Date Type Department Care Team (Latest Contact Info) Description 12/10/2018 Abstract [facility] CONVERSIONS Dental, Provider, DDS Social History [...] Description 08/18/2025 12:45 PM EDT Office Visit [facility] [address] [place] [address] Karlene Hancock documented as of this encounter Visit Diagnoses Not on filedocumented in this encounter Care Teams Slab Installer Relationship Specialty Start Date End Date Enid Diaz FNP [address] [place] [address] PCP - General Family Medicine 01/18/22 documented as of this encounter
--- NOTE | 2025-05-17 09:57 | HO.ANESPROP2 ---
Documented by User: Nicolasa Johns NP 05/17/25 10:15 HPI - Anesthesia Eval Consult details Narrative: 70 yr old male for Colonoscopy with possible Polypectomy CKD: follows [facility] [place] [facility], last visit 04/2025, stable, no change in meds. [facility] Active Problems Active Problems: All Active Problems (Updated 04/25/25 @ 10:54 by Yasir Bowling MD) History of colon polyps (Acute) Tubular adenoma of colon (Acute) CKD (chronic kidney disease) (Acute) Hip flexor tendonitis (Acute) Hx of bilateral hip replacements (Acute) History of adenomatous polyp of colon (Acute) Hypertension (Acute) Past Medical History Medical History History of colon polyps Tubular adenoma of colon GERD (gastroesophageal reflux disease) Kidney disease High cholesterol Hypothyroid Colon abnormality Asthma History of adenomatous polyp of colon Hypertension Family History Family history of problems with anesthesia: No Surgical History Surgical History Hx of colonoscopy (~04/16/24) H/O colonoscopy H/O: hemorrhoidectomy Status post total hip replacement, bilateral History of Problems with Anesthesia: No Social History Social History Are you a primary resident care provider to a significant other at home: No Do you presently have visiting nurse or other home services: No Alcohol intake: current Alcohol intake frequency: does not drink Alcohol type: beer Patient Tobacco Use Status: Former Tobacco user Use of substances other than those prescribed or required for medical reasons: Yes Substance Use Type: Marijuana Are you DNR?: No Advance Directives: No Advance Directives Information Provided: Yes Current occupational status: disabled Meds Allergies Allergy/AdvReac Type Severity Reaction Status Date / Time ibuprofen (From MOTRIN) Allergy Intermediate GI Verified 05/05/25 13:42 PROBLEM, GI upset dicloxacillin Allergy Unknown Unknown Verified 05/05/25 13:42 Penicillins (PENICILLINS) Allergy Unknown UNKNOWN Verified 05/05/25 13:42 Home Medications ?Medication ?Instructions ?Recorded ?Confirmed ?Last Taken ?Type cholecalciferol (vitamin D3) 50 50 mcg PO DAILY 02/27/22 05/18/25 04/16/24 History mcg (2,000 unit) capsule (Vitamin D3) loratadine 10 mg tablet 10 mg PO DAILY PRN Allergy Symptoms 02/27/22 05/18/25 04/16/24 History pantoprazole 40 mg tablet,delayed 40 mg PO DAILY 02/27/22 05/18/25 Unknown History release rosuvastatin 10 mg tablet 10 mg PO BEDTIME 02/27/22 05/18/25 Unknown History sildenafil 100 mg tablet (Viagra) 50 - 100 mg PO DAILY PRN Erectile 02/27/22 05/18/25 Unknown History Dysfunction amlodipine 2.5 mg tablet 2.5 mg PO DAILY 03/18/24 05/18/25 04/16/24 History levothyroxine 112 mcg tablet 112 mcg PO Q2D 03/30/24 05/18/25 Unknown History levothyroxine 125 mcg tablet 125 mcg PO Q2D 03/30/24 05/18/25 04/16/24 History Exam Pertinent Lab Results Pertinent Lab Results: Laboratory Tests 01/04/25 04/05/25 20:52 08:43 WBC 11.8 H RBC 4.45 L Hgb 15.4 Hct 44.4 Plt Count 198 Sodium 141 Potassium 4.6 BUN 15 Creatinine 1.08 Assessment and Plan Final Anesthetic Review Family History of Problems with Anesthesia: No History of Problems with Anesthesia: No Documented by User: Amandeep Miranda MD 05/20/25 08:33 [facility] Past Medical History Medical History History of colon polyps Tubular adenoma of colon GERD (gastroesophageal reflux disease) Kidney disease High cholesterol Hypothyroid Colon abnormality Asthma History of adenomatous polyp of colon Hypertension Surgical History Surgical History Hx of colonoscopy (~04/16/24) H/O colonoscopy H/O: hemorrhoidectomy Status post total hip replacement, bilateral Social History Social History Are you a primary resident care provider to a significant other at home: No Do you presently have visiting nurse or other home services: No Alcohol intake: current Alcohol intake frequency: does not drink Alcohol type: beer Patient Tobacco Use Status: Former Tobacco user Use of substances other than those prescribed or required for medical reasons: Yes Substance Use Type: Marijuana Are you DNR?: No Advance Directives: No Advance Directives Information Provided: Yes Current occupational status: disabled Meds Allergies Allergy/AdvReac Type Severity Reaction Status Date / Time ibuprofen (From MOTRIN) Allergy Intermediate GI Verified 05/05/25 13:42 PROBLEM, GI upset dicloxacillin Allergy Unknown Unknown Verified 05/05/25 13:42 Penicillins (PENICILLINS) Allergy Unknown UNKNOWN Verified 05/05/25 13:42 Home Medications ?Medication ?Instructions ?Recorded ?Confirmed ?Last Taken ?Type cholecalciferol (vitamin D3) 50 50 mcg PO DAILY 02/27/22 05/18/25 04/16/24 History mcg (2,000 unit) capsule (Vitamin D3) loratadine 10 mg tablet 10 mg PO DAILY PRN Allergy Symptoms 02/27/22 05/18/25 04/16/24 History pantoprazole 40 mg tablet,delayed 40 mg PO DAILY 02/27/22 05/18/25 Unknown History release rosuvastatin 10 mg tablet 10 mg PO BEDTIME 02/27/22 05/18/25 Unknown History sildenafil 100 mg tablet (Viagra) 50 - 100 mg PO DAILY PRN Erectile 02/27/22 05/18/25 Unknown History Dysfunction amlodipine 2.5 mg tablet 2.5 mg PO DAILY 03/18/24 05/18/25 04/16/24 History levothyroxine 112 mcg tablet 112 mcg PO Q2D 03/30/24 05/18/25 Unknown History levothyroxine 125 mcg tablet 125 mcg PO Q2D 03/30/24 05/18/25 04/16/24 History Exam Exam Date and Time: 05/20/25 Airway Mallampati Class: II TM Dist: >3cm Neck ROM: Full Heart: rrr Lungs: ctab vesicular Assessment and Plan Assessment Anesthesia Assessment: Anesthesia Plan Discussed and Chart Reviewed Final Anesthetic Review NPO: Yes ASA Class: III Final Preanesthetic Review: No Changes in Pt Med Stat, Meds/Allgs Chart Reviewed, Consent Obtained/Reviewed and Anes Risks/Benef Reviewed Patient Risk: Low Procedure Risk: Low Anesthetic Plan Anesthetic Plan: MAC: Disposition: Standard PACU
[2025-05-18 14:36] VITALS: BMI 31.0
[2025-05-20 07:35] VITALS: BMI 30.1
[2025-05-20 07:44] VITALS: BP 147/80; RESP 16; TEMP 36.3
[2025-05-20] MEDS: Lactated Ringers 1,000 ML 100 ML IVCONT (08:02)
--- NOTE | 2025-05-20 08:04 | MHC.SHP ---
Pre-Procedural Eval Section A - 24 Hr Update-Section A only Date of Service: 05/20/25 The patient is an INPATIENT: No Changes since office visit: No Cold of Flu in the past 2 weeks, No New Medical Problems, No Changes in Medication and No Patient answered all questions The patient has been examined within 24 hours of the surgical procedure. The History & Physical has been completed within 30 days and I have reviewed it.: Yes Section B - Complete if H&P > 30 days Chief Complaint: Personal history of colon polyps, unspecified Allergies: Allergies Allergy/AdvReac Type Severity Reaction Status Date / Time ibuprofen (From MOTRIN) Allergy Intermediate GI Verified 05/05/25 13:42 PROBLEM, GI upset dicloxacillin Allergy Unknown Unknown Verified 05/05/25 13:42 Penicillins (PENICILLINS) Allergy Unknown UNKNOWN Verified 05/05/25 13:42 Plan I have reviewed the history and physical and performed a pertinent physical examination on my patient. No changes have occurred unless specified. Time Spent With Patient Time: Total time managing care of this patient today ____ minutes.
[2025-05-20 09:15] VITALS: BP 111/64; PULSE 54; RESP 10; TEMP 36.4; O2SAT 99
--- NOTE | 2025-05-20 09:17 | W.PM.OPN ---
Operative Note Operative Note Date of Service: 05/20/25 Narrative: Preop diagnosis: History of tubular adenomas Postop diagnosis:1. Small polyp about 2-3 mm in the colon outside the cecum removed with cold forceps 2. Small polyp about 2-3 mm in the transverse colon proximally, removed with cold forceps 3. Polyp about 1 cm at level 50 cm removed with cold snare 4. Internal external hemorrhoids Procedure: Colonoscopy with polypectomy using cold forceps x2 and cold snare x1 Surgeon: Yasir Bowling MD The patient is a 70-year-old male with multiple small tubular adenomas a year ago. I had recommended a follow up colonoscopy in view of his multiple adenomas. He understood the technique of the planned procedure as well as the risks, benefits, and alternatives.. The patient was brought to the operating room and placed in left lateral decubitus position under monitored anesthesia care. A surgical time-out was done. A full digital rectal exam was done and this did not reveal any significant anal lesions. The tip of the Olympus colonoscope was gently introduced through the anal orifice advanced with insufflation all the way to the cecum. The cecum was intubated. The cecum was identified by visualization of the ileocecal valve as well as the appendiceal orifice. The cecal mucosa was unremarkable. The scope was gradually withdrawn with careful examination of the entire colonic mucosa being done with scope withdrawal. The patient did have thin stools coating of the right colon in the transverse colon so we had to irrigate periodically to achieve good visualization. It was unlikely that any significant sized lesion may have been missed. Just outside the cecum was note of a small polyp about 2-3 mm. This has removed using multiple bites of the biopsy cold forceps. In the transverse colon was note of a 2-3 mm polyp also removed with cold forceps. At level 50 cm, there was note of a polyp on a stalk, about 1 cm in size. This was removed using cold snare. The rectum was reached and there were no lesions seen. 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 The scope was then withdrawn completely with desufflation. The patient tolerated procedure well. There were no immediate complications. Depending on a path report, I may recommend another colonoscopy in the next 3 years.
[2025-05-20 09:30] VITALS: BP 149/83; PULSE 60; RESP 20; TEMP 36.5; O2SAT 97
== END 2025-05-20 09:59 | disposition home or self-care (01) ==
PROVIDERS: PCP Registered Nurse; Visit Provider Surgery
PROC: 0DBE8ZZ Excision of Large Intestine, Via Natural or Artificial Opening Endoscopic (ICD-10-PCS; CPT 45380; principal; 2025-05-20 08:30)
DX: Z12.11 Encounter for screening for malignant neoplasm of colon (principal)
CPT/HCPCS: 45380; 45385; 88305; J2003; J2405; J2704

== ENCOUNTER → 2025-05-20 06:43 | Outpatient (BNV) | payer OTHER, SELFPAY | PROVIDERS: PCP Registered Nurse; Visit Provider Surgery | DX: Z12.11 Encounter for screening for malignant neoplasm of colon (principal); K63.5 Polyp of colon; K64.8 Other hemorrhoids | CPT/HCPCS: 45380 ==